=== PATIENT | female | born 1955 | race Caucasian/White ===

== ENCOUNTER → 2017-02-23 | Outpatient (CLI) | payer BC ==
[~2017-02-23] MED LIST: GADAVIST IV PRN
--- NOTE | 2017-02-23 10:29 | DIAGNOSTIC IMAGING REPORT ---
BRAIN COMBO CLINICAL HISTORY: 61 years-old Female presenting with history of breast and lung cancer, history of lymphoma. TECHNIQUE: Multisequence, multiplanar MR imaging of the brain was performed before and after the administration of intravenous contrast. IV contrast: 4.5 mL of Gadavist. COMPARISON: None. FINDINGS: Ventricles and sulci normal in size. Periventricular and subcortical white matter T2/FLAIR hyperintensity, nonspecific but likely indicative of chronic small vessel ischemic change. No mass effect or midline shift. No restricted diffusion to suggest acute ischemia. No hemorrhage. No extra-axial fluid collection. T2 skull base flow voids preserved. Suggestion of dural thickening and enhancement (series 9 image 15). Suggestion of multifocal abnormal foci of bone marrow signal intensity in the calvarium. Minimal fluid in the left mastoid air cells. IMPRESSION: 1. Multifocal sites of abnormal signal intensity in the calvarium concerning for metastatic disease. 2. Suggestion of pachymeningeal enhancement. This is nonspecific can be seen in the setting of metastatic disease, namely from breast cancer. Follow-up is advised. 3. Chronic small vessel ischemic change. No acute intracranial abnormality. Electronically signed by: Puma Chirinos M.D. 02/23/2017 10:28 AM Dictated Date/Time: 02/23/2017 10:18 AM
== END | disposition home or self-care (01) ==
LOC: C.MRI 09:05
PROVIDERS: ATTEND Internal Medicine Hematology & Oncology
DX: C34.11 Malignant neoplasm of upper lobe, right bronchus or lung (principal)

== ENCOUNTER → 2017-03-30 | Outpatient (CLI) | payer BC ==
--- NOTE | 2017-03-30 11:55 | DIAGNOSTIC IMAGING REPORT ---
VIDEO SWALLOW HISTORY: Difficulty swallowing. LUNG CANCER,NON SMALL CELL C34.11 TECHNIQUE: Video fluoroscopic evaluation of swallowing was performed in the AP and lateral projections by the speech pathology staff. The patient is fed nectar-thick and thin liquid barium, a barium coated wafer, and barium pudding. FLUOROSCOPY TIME: 2.7 minutes. A cine loop was submitted. COMPARISON STUDY: None. FINDINGS: There is normal hyoid excursion and epiglottic deflection. No aspiration identified. Moderate cricopharyngeal dysfunction with decreased opening of the proximal esophageal sphincter. There is also mild pharyngeal weakness. This likely accounts for the moderate hypopharyngeal residue seen throughout the examination. Mild esophageal dysmotility. IMPRESSION: 1. Moderate hypopharyngeal residue seen throughout the examination likely result of cricopharyngeal dysfunction and mild diffuse pharyngeal weakness. No aspiration identified. 2. Please see the speech pathologist report for detailed findings and recommendations. Electronically signed by: Kel Cm M.D. 03/30/2017 11:54 AM Dictated Date/Time: 03/30/2017 11:50 AM
--- NOTE | 2017-03-31 15:16 | SWALLOWING EVALUATION ---
HISTORY: This 61 year old woman was referred to [facility] for a Video Fluoroscopic Swallow Study (VFSS) in order to rule out aspiration, and identify the safest consistencies for optimal oral intake. The patient is reporting that she feels as though food and liquid are getting "stuck" in her throat and she is concerned that she is aspirating. She has not had any recent pneumonia. PMH is significant for lung cancer, recently diagnosed in December of this year. She reported she is receiving chemotherapy treatments. Current diet is regular. She denies loss of appetite but does admit to losing a "few pounds" since her treatments began. She also reports generalized weakness in association with her chemotherapy. PROCEDURE: The patient was seen in the Radiology Department of [facility] for the VFSS. Cursory examination of the oral cavity revealed upper and lower dentition. Movement of the articulators was wnl. Speech was clear. The patient stood for the procedure and was viewed in both the Anterior-Posterior (A-P) and Lateral planes. Volitional phonation exercises completed in the A-P plane revealed bilateral vocal fold movement and vocal intensity within functional limits. In the lateral plane, the patient was given the following boluses: 1 tsp. thin liquid barium x 2, single swallow thin liquid barium self-presented from a cup, sequential swallows of thin liquid barium self-presented from a straw, 1 tsp. nectar-thick liquid barium, single swallow nectar-thick liquid barium self-presented from a cup, 1 tsp. barium pudding, and 1 club cracker coated in barium pudding. The patient was then repositioned into the A-P plane and given the following boluses: 1 tsp. nectar thick barium and 1 tsp. barium pudding. RESULTS: Oral Stage: Lip closure was adequate. The patient was able to maintain a cohesive liquid bolus upon command without any escape. Mastication and lingual motion for bolus transport was slowed. There was retention along the tongue and palate after the initial swallow. The initiation of the pharyngeal swallow was delayed and triggered when the bolus head reached the valleculae. Pharyngeal Stage: Soft palate elevation was complete. Laryngeal elevation revealed partial superior movement of the thyroid cartilage and partial approximation of the arytenoids to the epiglottic base. Anterior hyoid excursion was partially reduced. Epiglottic deflection was in-complete and at times did not invert. Laryngeal vestibular closure was incomplete, with a narrow column of contrast located in the vestibule at the height of the swallow. The pharyngeal stripping wave was present yet diminished. Pharyngeal contraction was incomplete. There was partial distention and duration to the opening of the pharyngoesophageal segment (PES). Tongue base retraction was reduced, with a narrow column of contrast located between the tongue base and pharyngeal wall during the swallow. There was retention located in the valleculae and in the pyriforms after the swallow. There was evidence of laryngeal penetration of thin liquids from a straw in serial swallows. No other laryngeal penetration or aspiration was identified. Retention remained in the valleculae and pyriforms did not effectively clear with a liquid wash. An effortful swallow did assist in clearing the retention, but she needed to complete ~ 2-3 to be fully effective. Pharyngeal stage dysphagia is attributed to generalized pharyngeal weakness to include reduced tongue base retraction, limited to no epiglottic deflection, reduced anterior hyoid excursion, and reduced opening of the PES. Esophageal Stage: There was mild retention located in the distal esophagus. SUMMARY/RECOMMENDATIONS: The patient presents with mild to moderate bob-pharyngeal dysphagia. She also presents with signs and symptoms of esophageal dysfunction. The following is recommended: 1. Regular diet, thin liquids. 2. Aspiration and MATHIEU precautions. Straws OK. Fully upright for meals and for 30 minutes after meals. Do not lay flat, elevate head of the bed to at least 30 degrees at all time, to include while sleeping. 3. Double effortful swallow with each bite/sip. Alternate solids and liquids as needed. 4. Consider participation in outpatient speech therapy services for dysphagia. Treatment to focus on generalized pharyngeal strengthening exercises. Results and recommendations were discussed with the patient immediately following the study with verbal understanding. Education also completed on rationale of effortful swallowing strategy to not only assist with clearing pharyngeal retention, but to also assist in improved strengthening of the pharynx. Educated the patient on how to complete the Brenda Maneuver (Holding the tongue in-between the teeth gently, and eliciting a swallow to improve tongue base strengthening). She was able to complete return demonstration and verbalized understanding to this exercise. Thank you for referral of this patient. Please contact me at if any additional information is needed.
== END | disposition home or self-care (01) ==
LOC: C.RAD 10:42
PROVIDERS: ATTEND Internal Medicine Hematology & Oncology
DX: C34.11 Malignant neoplasm of upper lobe, right bronchus or lung (principal)

== ENCOUNTER → 2017-04-08 | Outpatient (CLI) | payer BC ==
[~2017-04-08] MED LIST changes: +AMLO5TAB3 PO; +CHEMO DRUG IV; -GADAVIST IV PRN; +LEVO125T5 PO; +LOSA1TAB38 PO; +OPTIRAY 320 IV PRN; +PATIENT'S ALLERGY INFO NEEDS ENTERED SCH; +TIOT1AER INH
--- NOTE | 2017-04-08 08:47 | DIAGNOSTIC IMAGING REPORT ---
(CHEST) THORAX WITH CT DOSE: 320.97 mGy.cm HISTORY: Lung carcinoma LUNG CA TECHNIQUE: Multiaxial CT images of the chest were performed following the intravenous administration of contrast. A dose lowering technique was utilized adhering to the principles of ALARA. COMPARISON: None. FINDINGS: Emphysematous change throughout both hemithoraces. Bleb formation scattered throughout both hemithoraces. Apical fibrotic changes most likely chronic. Groundglass 1.5 cm nodule posterior aspect right pulmonary apex. Spiculated mass right middle lobe measuring 2.8 x 1.5 cm up. Probable developing right hilar adenopathy up to 1.5 cm. Mild cardiomegaly. Basilar pleural thickening combined with a trace amount of right basilar pleural fluid. Findings of diffuse bony blastic metastatic change. Moderate distention root of the aorta with maximum diameter of 3.3 cm. A potential nodular density anterior aspect right base measuring 7 mm. Limited evaluation of the upper abdomen is unremarkable. Several small hypodensities less than 5 mm superior right hepatic lobe too small to quantify. IMPRESSION: 1. Difficult study to interpret given the absence of prior studies for comparison. 2. Spiculated right middle lobe mass with probable right hilar and potential fibrotic stranding to the pleural surface. 3. 1.5 cm groundglass nodule right pulmonary apex, smaller nodules in both lung bases raising the possibility of metastatic change. 4. Diffuse bony blastic metastatic change. 5. Underlying emphysematous change. 6. Small pericardial effusion. 7. Potential hepatic metastatic change versus simple cystic change. The above report was generated using voice recognition software. It may contain grammatical, syntax or spelling errors. Electronically signed by: Sherif Palmer M.D. 04/08/2017 8:45 AM Dictated Date/Time: 04/08/2017 8:27 AM
--- NOTE | 2017-04-08 08:55 | DIAGNOSTIC IMAGING REPORT ---
CT NECK WITH INTRAVENOUS CONTRAST HISTORY: Follow-up lung cancer. TECHNIQUE: Multiaxial CT images of the neck were performed following the use of intravenous contrast. COMPARISON STUDY: None. FINDINGS: The visualized brain parenchyma and orbits are unremarkable. Emphysema. Multiple biapical blebs. 2 cm groundglass nodule within the right lung apex. Multiple blastic metastases seen throughout the visualized osseous structures. Old fracture within the right maxillary sinus which is likely pathologic. There is mild soft tissue thickening at this location suggestive of metastatic disease. This fracture is nonunited. There is also an old T2 spinous process fracture which is nonunited. The parotid and submandibular glands are symmetric. The epiglottis is normal in thickness. No significant cervical lymphadenopathy. No definite supraclavicular lymphadenopathy. Heterogeneous thyroid gland. The carotid vertebral arteries are patent. Asymmetric prevertebral soft tissue thickening at the C5 T1 through levels, right greater than left. This measures up to 9 mm in thickness. There is also thickening within the proximal esophagus and indistinct fat plane surrounding the thyroid gland and superior mediastinum. The airway remains patent. IMPRESSION: 1. Abnormal prevertebral soft tissue thickening from the C5-T1 levels with indistinct fat plane surrounding the thyroid gland, superior mediastinum, proximal esophagus. There is also mild thickening of the proximal esophagus. This is nonspecific but favors post radiation change. Malignancy could also a similar appearance. 2. Extensive osteoblastic metastatic disease. 3. A 2 cm groundglass nodule within the right lung apex. 4. No cervical lymphadenopathy. 5. Nonunited pathologic fracture within the right maxillary sinus with mild soft tissue thickening. This is consistent with metastatic disease. This is likely old. Electronically signed by: Kel Cm M.D. 04/08/2017 8:54 AM Dictated Date/Time: 04/08/2017 8:26 AM
== END | disposition home or self-care (01) ==
LOC: C.CTS 08:02
PROVIDERS: ATTEND Internal Medicine Hematology & Oncology
DX: C34.11 Malignant neoplasm of upper lobe, right bronchus or lung (principal); C79.51 Secondary malignant neoplasm of bone

== ENCOUNTER → 2017-11-18 | Outpatient (CLI) | payer OTHER ==
[~2017-11-18] MED LIST changes: -OPTIRAY 320 IV PRN; -PATIENT'S ALLERGY INFO NEEDS ENTERED SCH
[2017-11-18 09:43] LABS: BASO % 0.5 %; BASO ABS # 0.04 K/uL (0-0.2); EOS % 1.8 %; EOS ABS # 0.14 K/uL (0-0.5); HEMOGLOBIN 14.9 g/dL (12.0-16.0); IG# 0.03 K/uL (0.00-0.02); LYMPH % 17.6 %; LYMPH ABS # 1.36 K/uL (1.2-3.4); MEAN CELL VOLUME 96.3 fL (80-100); MEAN CORPUSCULAR HEMOGLOBIN 32.6 pg (25-34); MEAN CORPUSCULAR HGB CONC 33.9 g/dl (32-36); MEAN PLATELET VOLUME 9.1 fL (7.4-10.4); MONO ABS # 0.77 K/uL (0.11-0.59); NEUT % 69.7 %; NEUT ABS # 5.39 K/uL (1.4-6.5); PLATELET COUNT 257 K/uL (130-400); RED CELL DISTRIBUTION WIDTH CV 14.2 % (11.5-14.5); RED CELL DISTRIBUTION WIDTH SD 50.2 fL (36.4-46.3); WHITE BLOOD COUNT 7.73 K/uL (4.8-10.8)
[2017-11-18 10:04] LABS: ALBUMIN 3.1 gm/dl (3.4-5.0); ALT/SGPT 24 U/L (12-78); AST/SGOT 24 U/L (15-37); BLOOD UREA NITROGEN 6 mg/dl (7-18); CARBON DIOXIDE 27 mmol/L (21-32); CREATININE 0.46 mg/dl (0.60-1.20); GLUCOSE 81 mg/dl (70-99); SODIUM 137 mmol/L (136-145)
[2017-11-18 10:10] LABS: ALKALINE PHOSPHATASE 369 U/L (45-117)
== END | disposition home or self-care (01) ==
LOC: C.LABSPEC 09:32
PROVIDERS: ATTEND Internal Medicine Hematology & Oncology
DX: C34.11 Malignant neoplasm of upper lobe, right bronchus or lung (principal)

== ENCOUNTER → 2017-11-23 | Day surgery (SDC) | payer OTHER ==
[2017-11-19 14:56] VITALS: Ht 167.6 cm; Wt 41.6 kg
[~2017-11-23] VITALS: Ht 167.6 cm; Wt 41.6 kg
[~2017-11-23] MED LIST changes: +LIDOCAINE HCL 2% 2 ML VIAL (20MG/ML) ONE; +PROPOFOL IV EMULSION 10 MG/ML 20 ML VIAL ONE
--- NOTE | 2017-11-23 08:39 | Endo History and Physical ---
History & Physical Date of Service: Nov 23, 2017. Chief Complaint: Dysphagia Referring Physician: Dorothy Gutierrez History of Present Illness 62 yo CF who presents for EGD secondary to dysphagia. Past Surgical History Hx Cardiac Surgery: No Hx Internal Defibrillator: No Hx Pacemaker: No Hx Abdominal Surgery: Yes (NOÉ BSO) Hx of Implantable Prosthesis: No Hx Post-Op Nausea and Vomiting: No Hx Cancer Surgery: Yes (SKIN CANCER EXCISION) Hx Thoracic Surgery: No Hx Orthopedic: No Hx Urinary Tract Surgery: No Family History None Social History Smoking Status: Former Smoker Hx Substance Use: No Hx Alcohol Use: Yes (RARELY) Allergies Coded Allergies: Red Dye (Verified Allergy, Unknown, LIGHTHEADED, 11/23/17) Current Medications Reported Home Medications Medications Dose Route/Sig Max Daily Dose Days Date Category [Chemo Drug] 1 Dose IV [id number] 11/19/17 Reported Stiolto Respimat 2.5-2.5 Mcg/Act (Tiotropium [place]-Olodaterol) 1 Aer Aer 1 Dose INH QAM 11/19/17 Reported Cozaar (Losartan Potassium) 100 Mg Tab 100 Mg PO QAM 11/19/17 Reported Levothyroxine Sodium 125 Mcg Tab 1 Tab PO QAM 11/19/17 Reported Norvasc (Amlodipine Besylate) 5 Mg Tab 5 Mg PO QAM 11/19/17 Reported Vital Signs Weight (Kilograms): 41.59 Height (Feet): 5 Height (Inches): 6 Date Time Temp Pulse Resp B/P (MAP) Pulse Ox O2 Delivery O2 Flow Rate FiO2 11/23/17 08:11 36.4 76 20 117/79 (92) 96 Room Air Physical Exam General Appearance: WD/WN, no apparent distress Respiratory/Chest: Auscultation: breath sounds normal Cardiovascular: Heart Auscultation: RRR Abdomen: Bowel Sounds: normal Inspection & Palpation: soft, non-distended, no tenderness, guarding & rebound Assessment and Plan Assessment: 62 yo CF who presents for EGD secondary to dysphagia. Plan: Proceed with EGD.
--- NOTE | 2017-11-23 09:19 | GI REPORT ---
Patient Name: Emily Benavidez Procedure Date: 11/23/2017 8:28 AM Date of : 1955 Admit Type: Outpatient Age: 62 Gender: Female Attending MD: Tenzin Kerns DO Procedure: Upper GI endoscopy Providers: Tenzin Kerns DO Referring MD: Dorothy Gutierrez Indications: Dysphagia Medicines: Monitored Anesthesia Care Complications: No immediate complications. Estimated Blood Loss: Estimated blood loss: none. Procedure: Pre-Anesthesia Assessment: - Prior to the procedure, a History and Physical was performed, and patient medications and allergies were reviewed. The patient's tolerance of previous anesthesia was also reviewed. The risks and benefits of the procedure and the sedation options and risks were discussed with the patient. All questions were answered, and informed consent was obtained. Prior Anticoagulants: The patient has taken no previous anticoagulant or antiplatelet agents. ASA Grade Assessment: IV - A patient with severe systemic disease that is a constant threat to life. After reviewing the risks and benefits, the patient was deemed in satisfactory condition to undergo the procedure. After obtaining informed consent, the endoscope was passed under direct vision. Throughout the procedure, the patient's blood pressure, pulse, and oxygen saturations were monitored continuously. The Scope was introduced through the mouth, and advanced to the second part of duodenum. The upper GI endoscopy was performed with difficulty due to stenosis. Successful completion of the procedure was aided by withdrawing the scope and replacing with the pediatric endoscope. The patient tolerated the procedure well. Findings: One benign-appearing, intrinsic stenosis was found 18 cm from the incisors. This stenosis was severe and measured 8 mm (inner diameter) x 1 cm (in length). The stenosis was traversed after downsizing scope. A guidewire was placed and the scope was withdrawn. Dilation was performed with a Savary dilator with no resistance at 30 Fr and 33 Fr. A small hiatal hernia was present. The examined duodenum was normal. Impression: - Benign-appearing esophageal stenosis. Dilated. - Small hiatal hernia. - Normal examined duodenum. - No specimens collected. Recommendation: - Resume previous diet. - Continue present medications. - Repeat upper endoscopy at appointment to be scheduled for retreatment at [facility]. - Return to primary care physician as previously scheduled. Tenzin Kerns DO 11/23/2017 9:19:00 AM This report has been signed electronically. Note Initiated On: 11/23/2017 8:28 AM Number of Addenda: 0 I attest to the content of the Intraoperative Record and orders documented therein, exceptions below {[id number]}
--- NOTE | 2017-11-23 09:40 | Discharge Instructions ---
Endoscopy Patient Instructions Date / Procedure(s) Performed Nov 23, 2017. EGD Allergy Information Coded Allergies: Red Dye (Verified Allergy, Unknown, LIGHTHEADED, 11/23/17) Discharge Date / Findings Nov 23, 2017. Proximal esophageal stricture Hiatal hernia Medication Instructions OK to resume all medications today as prescribed Reported Home Medications Medications Dose Route/Sig Max Daily Dose Days Date Category [Chemo Drug] 1 Dose IV [id number] 11/19/17 Reported Stiolto Respimat 2.5-2.5 Mcg/Act (Tiotropium [place]-Olodaterol) 1 Aer Aer 1 Dose INH QAM 11/19/17 Reported Cozaar (Losartan Potassium) 100 Mg Tab 100 Mg PO QAM 11/19/17 Reported Levothyroxine Sodium 125 Mcg Tab 1 Tab PO QAM 11/19/17 Reported Norvasc (Amlodipine Besylate) 5 Mg Tab 5 Mg PO QAM 11/19/17 Reported Provider Instructions Activity Restrictions - No exercising or heavy lifting for 24 hours. - Do not drink alcohol the day of the procedure. - Do not drive a car or operate machinery until the day after the procedure. - Do not make any important decisions or sign important papers in 24 hours after the procedure. Following Day: - Return to full activity which may include returning to work/school. Diet Start your diet with liquids and light foods (jello, soup, juice, toast). Then eat your usual diet if not nauseated. Treatment For Common After Affects For mild abdominal pain, bloating, or excessive gas: - Rest - Eat lightly - Lie on right side Follow-Up Information Follow-up with Dorothy Gutierrez as scheduled Anesthesia Information What You Should Know You have had a procedure that required some medicine to reduce anxiety and discomfort. This treatment is called moderate sedation. After receiving the treatment, you may be sleepy, but you will be able to breathe on your own. The effects of the treatment may last for several hours. Follow these instructions along with Activity/Diet recommendations noted above: * Do NOT do anything where dizziness or clumsiness would be dangerous. * Rest quietly at home today, then you can be up and about tomorrow. * Have a responsible person stay with you the rest of today. * You may have had an I.V. today. If so, you may take the dressing off later today. Recommendations Call your doctor if: * Trouble breathing * Continuous vomiting for more than 24 hours * Temperature above 101 degrees * Severe abdominal pain or bloating * Pain not relieved by pain medicine ordered * There is increased drainage or redness from any incision * A large amount of rectal bleeding greater than 2-3 tablespoons. (If you had a polyp/s removed or have hemorrhoids, a small amount of blood - from the rectum is to be expected.) * You have any unanswered questions or concerns. IN THE EVENT OF A SERIOUS EMERGENCY, GO TO THE NEAREST EMERGENCY ROOM Your discharge instructions were prepared by provider Tenzin Kerns. Patient Instructions Signature Page Emily Benavidez Patient (or Guardian) Signature/Date: I have read and understand the instructions given to me by my caregivers. Caregiver/RN/Doctor Signature/Date: The above-named patient and/or guardian has received patient instructions on this date. + Original Patient Signature Page (only) stays with chart. Please make copy for patient.
--- NOTE | 2017-11-23 09:51 | Anesthesiology Progress Note ---
Anesthesia Post Op Note Date & Time Nov 23, 2017 at 09:51 Vital Signs Pain Intensity: 0 Vital Signs Past 12 Hours Date Time Temp Pulse Resp B/P (MAP) Pulse Ox O2 Delivery O2 Flow Rate FiO2 11/23/17 09:28 82 16 89/56 (67) 97 Room Air 5 11/23/17 09:12 36.5 84 14 105/66 (79) 94 Room Air 5 11/23/17 08:11 36.4 76 20 117/79 (92) 96 Room Air Notes Mental Status: alert / awake / arousable, participated in evaluation Pt Amnestic to Procedure: Yes Nausea / Vomiting: adequately controlled Pain: adequately controlled Airway Patency, RR, SpO2: stable & adequate BP & HR: stable & adequate Hydration State: stable & adequate Anesthetic Complications: no major complications apparent
[2017-11-23 10:08] VITALS: BP 126/85; PULSE 88; O2SAT 93
== END | disposition home or self-care (01) ==
LOC: C.GI 07:36
PROVIDERS: ATTEND Internal Medicine
DX: R13.10 Dysphagia, unspecified (principal); R63.4 Abnormal weight loss; K44.9 Diaphragmatic hernia without obstruction or gangrene; K22.2 Esophageal obstruction; Z90.710 Acquired absence of both cervix and uterus; Z90.722 Acquired absence of ovaries, bilateral; Z90.79 Acquired absence of other genital organ(s); Z85.828 Personal history of other malignant neoplasm of skin; Z87.891 Personal history of nicotine dependence

== ENCOUNTER 2019-02-14 19:33 | Inpatient (IN) ==
[2019-02-14] MEDS ORDERED: SODIUM CHLORIDE 0.9% 1000ML 1,000 ML IV ONE (20:16)
[2019-02-14] MEDS ORDERED: CALCIUM GLUCONATE 10% 2,000 MG in SODIUM CHLORIDE 0.9% 50 ML IV ONE (20:16)
[2019-02-14] MEDS ORDERED: ALBUT/IPRATROP 3MG/0.5MG NEB 3 ML VIAL NEB STA (20:17)
[2019-02-14] MEDS ORDERED: methylPREDNISolone 60 MG in SYRINGE 1 ML IV STA (20:17)
[2019-02-14 21:02] LABS: BUN Creatinine Ratio 23.1 (10-20); Calcium 6.4 mg/dl (8.5-10.1); Creatinine Clr Calc Pharmacy 57.2 ml/min; Est GFR (African American) 109.5; Est GFR (Non-African American) 94.5; Potassium 3.4 mmol/L (3.5-5.1)
[2019-02-14 21:05] LABS: Albumin Globulin Ratio 0.4 (0.9-2); Bilirubin,Total 0.3 mg/dl (0.2-1)
[2019-02-14 21:10] LABS: Hematocrit (blood only) 32.6 % (37-47); Hemoglobin 11.1 g/dL (12.0-16.0); Mean Platelet Volume 9.3 fL (7.4-10.4); Platelet Count 267 K/uL (130-400); RDW Coefficient of Variation 15.5 % (11.5-14.5); RDW Standard Deviation 53.5 fL (36.4-46.3); Red Blood Count 3.36 M/uL (4.2-5.4)
[2019-02-14 21:13] LABS: Basophils # (auto) 0.04 K/uL (0-0.2); Basophils % (auto) 0.2 %; Eosinophils # (auto) 0.06 K/uL (0-0.5); Eosinophils % (auto) 0.3 %; Immature Granulocytes # (auto) 0.45 K/uL (0.00-0.02); Immature Granulocytes % (auto) 1.9 %; Lymphocytes # (auto) 0.96 K/uL (1.2-3.4); Monocytes # (auto) 1.94 K/uL (0.11-0.59); Monocytes % (auto) 8.1 %; Neutrophils # (auto) 20.55 K/uL (1.4-6.5); Neutrophils % (auto) 85.5 %; Platelet Estimate Normal (Normal)
--- NOTE | 2019-02-14 21:33 | CT Scan Report ---
CT abd pelvis wo con CT DOSE: 248.93 mGy.cm HISTORY: Nausea vomiting eval for obstruction TECHNIQUE: Multiaxial CT images of the abdomen and pelvis were performed without contrast. A dose lo wering technique was utilized adhering to the principles of ALARA. COMPARISON STUDY: 04/21/2018 FINDINGS: Diffuse consolidative infiltrate right base including right middle lobe and right lower lob e distributions. Small right effusion. Minimal platelike atelectasis left base. Trace perihepatic ascites. Several low density lesions within the right as well as left hepatic lobe showed a progressive or interval findings from the prior study. This is highly suggestive of metastat ic disease. Kidneys are considered negative for hydronephrosis. There is a pre-existing right renal cyst. Bladder is distended. Bowel pattern is nonobstructive. Evaluation of the abdomen and pelvis is compromised due to the absence of fat as well as absence of c ontrast. IMPRESSION: 1. Interval development of probable diffuse liver metastatic disease. 2. Consolidative parenchymal infiltrate and effusion right lung base. 3. Nonobstructive bowel pattern. 4. Distended bladder. 5. Progressive blastic metastatic change of all major bony structures. 6. Trace perihepatic ascites. The above report was generated using voice recognition software. It may contain grammatical, syntax or spelling errors. Electronically signed by: Sherif Palmer M.D. 02/14/2019 9:31 PM
[2019-02-14] MEDS ORDERED: CEFEPIME 2,000 MG/20 ML VIAL IV STA (21:47)
--- NOTE | 2019-02-14 23:13 | History & Physical Report ---
Date of Service February 14, 2019 Assessment & Plan (1) RLL pneumonia: Ms. Benavidez is a 63-year-old female with a past medical history of lung cancer with metastases to the bone and liver, COPD, hypertension, hypothyroidism, chronic pain, GERD and esophageal dysphagia who was referred to the emergency department by her GI physician, Dr. Kerns, due to abnormal labs. ED Course: 2g calcium gluconate, 1 L normal saline bolus, 60 mg IV methylprednisone, 3 mL DuoNeb, 2 g IV cefepime Sepsis secondary to right lower lobe pneumonia -admit to med/surg with telemetry monitoring -Patient meets criteria for sepsis given tachycardia, tachypnea and leukocytosis with a pulmonary source of infection -Lactate ordered and pending -Blood cultures drawn x2 and pending -CT abdomen & pelvis showed consolidative infiltrate and effusion of the right lung base -Empiric antibiotics with cefepime and vancomycin given patient is immunocompromised due to a malignancy and chemotherapy -MRSA swab ordered -Duonebs ordered every 4 hours as needed -Patient chronically on 10 mg of prednisone, started by her oncologist - will hold this, and stress dose with 60 mg IV methylprednisolone every 12 hours -Maintenance IV fluids orderedLR at 80 mLs/hour x2 bags Hypocalcemia -Patient's calcium level was 6.4, corrected to 8 due to low albumin -Patient received 2 g of calcium gluconate in ER -Recheck with a.m. labs Metastatic lung cancer -Follows with Dr. Marcano -Due to receive chemotherapy this [February 17] -Discussed new metastases to liver with patient Hyponatremia/hypokalemia -Sodium level 132, potassium 3.4 -Likely secondary to poor oral intake, given nausea -Receiving maintenance IVF with LR -Continue home potassium supplementation -Recheck BMP tomorrow Hypothyroidism -Continue home Synthroid Hypertension -Hold home losartan given patient is hypotensive due to sepsis COPD -Continue home inhalers -Remainder of treatment as above Chronic back pain -Continue home PRN oxycodone GERD -Continue home pantoprazole CODE STATUS: Full DVT prophylaxis: 30 mg Lovenox SQ daily Disposition: Admit to med/surg with telemetry monitoring (2) Hypocalcemia: (3) Pleural effusion on right: (4) Acute hyponatremia: (5) Acute exacerbation of chronic obstructive pulmonary disease (COPD): (6) Sepsis: (7) Anemia: (8) Liver metastases: (9) Metastatic lung cancer (metastasis from lung to other site): History of Present Illness Chief Complaint: Sepsis, Pneumonia Primary Care Provider: Dorothy Gutierrez DO Ms. Benavidez is a 63-year-old female with a past medical history of lung cancer with metastases to the bone and liver, COPD, hypertension, hypothyroidism, chronic pain, GERD and esophageal dysphagia who was referred to the emergency department by her GI physician, Dr. Kerns, due to abnormal labs. The patient states that she presented to Dr. Kerns's office today due to feeling unwell, with nausea, and poor appetite. She had an x-ray done and labs ordered, and was referred to the emergency department. She denies fever, chills, shortness of breath, or chest pain. She reports that she has a chronic productive cough, which she states is no worse than usual. She chronically uses 3 L of oxygen at home, as needed for when she exerts herself. With regards to her lung cancer, she follows with Dr. Marcano. She is currently undergoing treatment with chemotherapy, which was started 2 years ago. She receives chemotherapy once every 3 weeks, and stated that she is due to receive it 3 days from now. Of note, she is a former smoker. She quit 2 years ago, when she was diagnosed with lung cancer. Allergies Allergy/AdvReac Type Severity Reaction Status Date / Time red dye Allergy Unknown LIGHTHEADED Verified 02/14/19 14:08 Home Medications Home Medications Medication Instructions Recorded Confirmed Type Daliresp 500 mcg PO QPM 10/22/18 02/14/19 History Spiriva Respimat 2 puff INHALATION DAILY 10/22/18 02/14/19 History benzonatate 100 mg PO QAM 10/22/18 02/14/19 History folic acid 1 mg PO QAM 10/22/18 02/14/19 History levothyroxine 125 mcg PO QAM 10/22/18 02/14/19 History losartan 100 mg PO QAM 10/22/18 02/14/19 History ondansetron HCl [Zofran] 8 mg PO TID PRN 10/22/18 02/14/19 History oxycodone 5 mg PO Q4H PRN 10/22/18 02/14/19 History pantoprazole 40 mg PO QAM 10/22/18 02/14/19 History potassium chloride 20 meq PO QAM 10/22/18 02/14/19 History prednisone 10 mg PO QAM 10/22/18 02/14/19 History prochlorperazine maleate 10 mg PO BID PRN 10/22/18 02/14/19 History erythromycin 250 mg PO MOWEFR 02/14/19 02/14/19 History fluticasone propionate [Flonase 1 spray INTRANASAL BID 02/14/19 02/14/19 History Allergy Relief] Past Med/Surg History Medical History Hypokalemia Hyponatremia Cancer lung, bone --> currently on chemo q3w Difficulty swallowing GERD (gastroesophageal reflux disease) History of tooth extraction Hypertension Hypothyroidism On home oxygen therapy 2 lpm PRN sob Surgical History History of bronchoscopy History of esophagogastroduodenoscopy (EGD) History of total abdominal hysterectomy and bilateral salpingo-oophorectomy History of vascular access device Status post dilation of esophageal narrowing Family History Mother Family history of diabetes mellitus Social History Preferred Language: Guyanese Communication Ability: Effective Jukebox Checker Required: No Beliefs That Will Affect Care: None Current Living Situation: Alone Feels Safe at Home: Yes Safety Concerns: Feels Safe At This Time Smoking Status: Former smoker Tobacco Type: cigarettes ; Second Hand Exposure: Yes (previous exposure) ; Hx Alcohol Use: No Hx Substance Use: No Childhood Exposure to Second-Hand Smoke: Yes caffeine: Yes during the past year weight has: other Dental Care, Regularly: Yes Physical Activity Frequency: Does not Exercise Seatbelt Use: always Review of Systems Constitutional: + fatigue and + anorexia; no fever and no chills Ear, Nose, Mouth, Throat: no nasal congestion and no sore throat Respiratory: + cough and + dyspnea on exertion Cardiovascular: no chest pain, no syncope, no edema and no calf pain Gastrointestinal: + nausea; no abdominal pain, no vomiting and no change in bowel habits Musculoskeletal: + back pain Integumentary: no rash Physical Exam Constitutional: WD/WN, vitals as above + ill appearing, + 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 Coughing frequently Eyes: PERRL, conjunctivae normal, anicteric sclerae ENMT: external ear and nose normal, oropharynx normal (Dry mucous membranes) Respiratory: + cough and able to speak in complete sentences; not tachypneic Auscultation: + diminished lung sounds and + wheezes Course breath sounds at bilateral lung bases, R>L Cardiovascular: RRR, no murmur, no edema Gastrointestinal (Abdomen): normal bowel sounds, soft, nontender, no hepatosplenomegaly Musculoskeletal: no cyanosis or clubbing, extremities motor strength 5/5 Skin: no rashes, warm and dry Neurologic: PERRL, EOMI, accommodation nl, no face palsy, no dysarthria Psychiatric: A+Ox3, euthymic affect Results & Data Vital Signs (Past 12 Hours) Vital Signs Temp Pulse Pulse Resp BP Pulse Ox 02/14/19 21:10 97 H 22 94 02/14/19 21:01 85 16 97 02/14/19 21:00 86 20 116/66 97 02/14/19 20:50 86 15 97 02/14/19 20:48 84 19 97 02/14/19 20:30 87 18 92/65 L 97 02/14/19 20:20 91 H 97 02/14/19 19:43 36.4 C L 97 H 20 93/63 L 88 L Code Status & VTE Plan VTE Prophylaxis Plan VTE Prophylaxis will be ordered: Yes Supervising Physician Co-Signing Physician Notes Patient was seen and examined by me personally. I reviewed the chart, the orders and discussed the case in detail with Dr. Nevin Earl MD. I read this H&P and agree with its contents to entirety. PG Care Time/CCT Total # of Minutes Spent Total Time Spent with Patient: Total time spent is greater than 50% in coordination of care (as documented) at patient's floor/unit and/or counseling patient: Resident Activity Tracking Resident Involvement: Resident Care Provided Care Provided: Adult Hospital Medicine (1) Anemia Anemia type: unspecified type Qualified Code(s): D64.9 - Anemia, unspecified (2) RLL pneumonia Pneumonia type: due to unspecified organism Qualified Code(s): J18.1 - Lobar pneumonia, unspecified organism
[2019-02-14] MEDS ORDERED: MAGNESIUM HYDROXIDE SUSP 30 ML UDC PO PRN (23:47)
[2019-02-14] MEDS ORDERED: POLYETHYLENE (MIRALAX) 17 GM PACK PO PRN (23:47)
[2019-02-14] MEDS ORDERED: PROCHLORPERAZINE MALEATE 10 MG TAB PO PRN (23:47)
[2019-02-14] MEDS ORDERED: OXYCODONE HCL IR 5 MG TAB (IMMEDIATE RELEASE) PO PRN (23:47)
[2019-02-14] MEDS ORDERED: ACETAMINOPHEN 325 MG TAB PO PRN (23:47)
[2019-02-14] MEDS ORDERED: ONDANSETRON INJ 2 MG/ML 2 ML VIAL IV PRN (23:47)
[2019-02-14] MEDS ORDERED: ALBUT/IPRATROP 3MG/0.5MG NEB 3 ML VIAL NEB PRN (23:47)
[2019-02-14] MEDS ORDERED: VANCOMYCIN CONSULT ACTIVE PRN (23:47)
[2019-02-14] MEDS ORDERED: ALUMINUM/MAGNESIUM SUSP 30 ML UDC PO PRN (23:47)
[2019-02-15] MEDS: LACTATED RINGER'S 1,000 ML IV SCH ×2 (00:59→13:21)
[2019-02-15] MEDS ORDERED: VANCOMYCIN HCL 1,000 MG in SODIUM CHLORIDE 0.9% 250 ML IV ONE (01:00)
[2019-02-15 04:00] LABS: Appearance Urine Clear (Clear); Bacteria Urine Automated Negative (Negative); Bilirubin Urine Negative (Negative); Blood Urine Negative (Negative); Color Urine Yellow; Epithelial Cell Urine Auto >30 /lpf (0-5); Glucose Urine UA Negative (Negative); Ketones Urine Negative (Negative); Leukocyte Esterase Urine 2+ (Negative); Nitrite Urine Negative (Negative); Protein Urine Trace (Negative); RBC Urine Automated 0-4 /hpf (0-4); Specific Gravity Urine 1.009 (1.000-1.030); Urobilinogen Urine Negative (Negative)
[2019-02-15] MEDS: LEVOTHYROXINE SODIUM 125 MCG TABLET PO SCH (06:07)
--- NOTE | 2019-02-15 06:29 | Pharmacy Report ---
Pharmacy Abx Dose Short Note - Date of Service February 15, 2019 - Assessment & Plan Assessment * Ms Benavidez is a 63 year old F receiving IV Vancomycin and Cefepime for treatment of sepsis/ RLL pneumonia * PMH is significant for COPD, lung CA with bone/liver mets, esophageal dysphagia, immunocompromise 2/2 chemo and chronic steroids. * Blood cultures are pending, MRSA swab negative Plan Vancomycin * Vanc 1gm (~24mg/kg) IV x1 dose, then * Vanc 750mg (~17.5mg/kg) IV q12h * Vancomycin has been dosed aggressively, as clearance is expected to be significantly increased in the setting of low body weight (BMI 14.9kg/m2). * Will check a level early to ensure that dosing is appropriate. * Goal trough level for sepsis/pulmonary infxn: 15 to 20 mcg/mL * Trough level ordered for: 02/16 prior to the 3rd maintenance dose (this may not yet represent steady-state, which will be taken into consideration when evaluating level) Cefepime 2gm IV q12h -- dose reduced for CrCl < 60mL/min, per renal adjustment protocol Pharmacy will continue to follow and will adjust dose/frequency as necessary. Thank you.
[2019-02-15 07:03] LABS: Basophils # (auto) 0.01 K/uL (0-0.2); Basophils % (auto) 0.1 %; Hematocrit (blood only) 35.2 % (37-47); Hemoglobin 11.5 g/dL (12.0-16.0); Immature Granulocytes % (auto) 3.2 %; Lymphocytes # (auto) 0.52 K/uL (1.2-3.4); Lymphocytes % (auto) 3.3 %; Mean Corpuscular Hemoglobin 32.3 pg (25-34); Mean Corpuscular Hgb Conc 32.7 g/dL (32-36); Mean Corpuscular Volume 98.9 fL (80-100); Mean Platelet Volume 9.2 fL (7.4-10.4); Monocytes # (auto) 0.43 K/uL (0.11-0.59); Monocytes % (auto) 2.7 %; Neutrophils # (auto) 14.38 K/uL (1.4-6.5); Neutrophils % (auto) 90.7 %; Platelet Count 262 K/uL (130-400); RDW Coefficient of Variation 15.6 % (11.5-14.5); RDW Standard Deviation 55.5 fL (36.4-46.3); Red Blood Count 3.56 M/uL (4.2-5.4); White Blood Count 15.84 K/uL (4.8-10.8)
[2019-02-15 07:34] LABS: BUN Creatinine Ratio 19.7 (10-20); Calcium 6.9 mg/dl (8.5-10.1); Creatinine Clr Calc Pharmacy 56.1 ml/min; Est GFR (African American) 107.9; Est GFR (Non-African American) 93.1; Potassium 4.2 mmol/L (3.5-5.1)
[2019-02-15] MEDS ORDERED: methylPREDNISolone 60 MG in SYRINGE 0 ML IV SCH (08:00)
[2019-02-15] MEDS: ENOXAPARIN INJ 30 MG/0.3 ML SYR SQ SCH (08:03)
[2019-02-15] MEDS: TIOTROPIUM BROMIDE 5 PUFF/90 MCG INH INH SCH (08:05)
[2019-02-15] MEDS: POTASSIUM CHLORIDE 20 MEQ TABCR PO SCH (08:07)
[2019-02-15] MEDS: FOLIC ACID 1 MG TAB PO SCH (08:09)
[2019-02-15] MEDS: BENZONATATE 100 MG CAPSULE PO SCH (08:10)
[2019-02-15] MEDS: PANTOprazole 40 MG TAB PO SCH (08:12)
[2019-02-15] MEDS: FLUTICASONE PROPIONATE NA SPR 16 GM BTL SCH ×2 (08:15→21:31)
[2019-02-15] MEDS: CEFEPIME 2,000 MG in SYRINGE 7.5 ML IV SCH ×2 (10:42→21:29)
[2019-02-15] MEDS: VANCOMYCIN HCL 750 MG in SODIUM CHLORIDE 0.9% 250 ML IV SCH (13:21)
[2019-02-15] MEDS: LEVALBUTEROL HCL 1.25 MG/3 ML NEB NEB SCH (18:20)
[2019-02-15] MEDS ORDERED: ROFLUMILAST 500 MCG TAB PO SCH (21:00)
--- NOTE | 2019-02-15 22:51 | Hospitalist Progress Note ---
Date of Service February 15, 2019 Assessment & Plan (1) RLL pneumonia: Ms. Benavidez is a 63-year-old female with a past medical history of lung cancer with metastases to the bone and liver, COPD, hypertension, hypothyroidism, chronic pain, GERD and esophageal dysphagia who was referred to the emergency department by her GI physician, Dr. Kerns, due to abnormal labs. ED Course: 2g calcium gluconate, 1 L normal saline bolus, 60 mg IV methylprednisone, 3 mL DuoNeb, 2 g IV cefepime Sepsis secondary to right lower lobe pneumonia -admit to med/surg with telemetry monitoring -Patient meets criteria for sepsis given tachycardia, tachypnea and leukocytosis with a pulmonary source of infection -Lactate ordered normal -Blood cultures drawn x2 and pending -CT abdomen & pelvis showed consolidative infiltrate and effusion of the right lung base -Empiric antibiotics with cefepime and vancomycin given patient is immunocompromised due to a malignancy and chemotherapy -will continue -MRSA swab ordered -Duonebs ordered every 4 hours as needed -Patient chronically on 10 mg of prednisone, started by her oncologist - will hold this, and stress dose with 60 mg IV methylprednisolone every 12 hours -Maintenance IV fluids orderedLR at 80 mLs/hour x2 bags Hypocalcemia -Patient's calcium level was 6.4, corrected to 8 due to low albumin -Patient received 2 g of calcium gluconate in ER -improved Metastatic lung cancer -Follows with Dr. Marcano -Due to receive chemotherapy this [February 17] -Discussed new metastases to liver with patient Hyponatremia/hypokalemia -Sodium level 132, potassium 3.4 -improved -Likely secondary to poor oral intake, given nausea -Receiving maintenance IVF with LR Hypothyroidism -Continue home Synthroid Hypertension -Hold home losartan given patient is hypotensive due to sepsis COPD -Continue home inhalers -Remainder of treatment as above Chronic back pain -Continue home PRN oxycodone GERD -Continue home pantoprazole CODE STATUS: Full DVT prophylaxis: 30 mg Lovenox SQ daily Disposition: Admit to med/surg with telemetry monitoring will consult oncology (2) Hypocalcemia: (3) Pleural effusion on right: (4) Acute hyponatremia: (5) Acute exacerbation of chronic obstructive pulmonary disease (COPD): (6) Sepsis: (7) Anemia: (8) Liver metastases: (9) Metastatic lung cancer (metastasis from lung to other site): Subjective Patient reports feeling better. She has no new complaints. Still feels weak, and not at baseline. Review of Systems Review of Systems: All systems reviewed & are unremarkable except as noted in HPI & below Physical Exam Physical Exam: Constitutional: WD/WN, vitals as above + ill appearing, + cachectic and cooperative Eyes: PERRL, conjunctivae normal, anicteric sclerae ENMT: external ear and nose normal, oropharynx normal (Dry mucous membranes) Respiratory: able to speak in complete sentences; not tachypneic Auscultation: + wheezes b/l Cardiovascular: RRR, no murmur, no edema Gastrointestinal (Abdomen): normal bowel sounds, soft, nontender, no hepatosplenomegaly Musculoskeletal: no cyanosis or clubbing, extremities motor strength 5/5 Skin: no rashes, warm and dry Neurologic: PERRL, EOMI, accommodation nl, no face palsy, no dysarthria Psychiatric: A+Ox3, euthymic affect Results & Data Vital Signs (Past 12 Hours) Vital Signs Temp Pulse Pulse Resp BP BP Pulse Ox 02/15/19 22:28 98 H 20 97 02/15/19 19:50 36.6 C 91 H 18 121/78 96 02/15/19 19:38 36.6 C 98 H 18 123/83 95 02/15/19 18:23 90 18 94 02/15/19 15:49 88 02/15/19 15:24 36.7 C 83 18 131/83 96 02/15/19 11:26 36.4 C L 81 18 122/84 98 PG Care Time/CCT Total # of Minutes Spent Total Time Spent with Patient: Total time spent is greater than 50% in coordination of care (as documented) at patient's floor/unit and/or counseling patient: (1) Anemia Anemia type: unspecified type Qualified Code(s): D64.9 - Anemia, unspecified (2) RLL pneumonia Pneumonia type: due to unspecified organism Qualified Code(s): J18.1 - Lobar pneumonia, unspecified organism
--- NOTE | 2019-02-15 22:51 | Emergency Department Note ---
Entered by Kiki Tucker acting as a scribe for Alin Majano MD History of Present Illness General Chief complaint: Abnormal Labs/Diagnostic Testing Stated complaint: ref by doc/ab labs Source: patient History of Present Illness Onset (ago): week(s) 1 Quality: + other (abnormal labs/diagnostic testing) Associated symptoms: + denies other symptoms (abdominal pain, urinary problems, abnormal bowel movements) and + other (nausea, dry heaves, unable to eat due to nausea, abdomen feels distended); no fever/chills The patient is a 63 year old female with a PMHx pertinent for metastatic lung cancer with metastasis to bone, COPD, anemia, hyponatremia, hypokalemia, and other relevant medical hisotry as indicated on BBOXX who was sent to the Emergency Room today by her PCP after test results showing a WBC count of 22,000. The patient states she has been experiencing nausea and dry heaves for 1 week with no relief. She also explains that she is unable to eat due to the nausea and states that her abdomen feels distended but not painful. The patient reports that she is also currently taking 10mg Prednisone once per day. She denies abdominal pain, history of abdominal surgery, fever, abnormal bowel movements, and problems with urination. Of note, she reports that her last bowel movement was 1 day ago. Additionally, she states that she uses 3L of O2 at home as needed and is currently receiving chemotherapy. She also explains that she was a previous smoker and quit a few years ago. The patient offers no additional complaints at this time. Home Medications Home Medications Medication Instructions Recorded Confirmed Type Daliresp 500 mcg PO QPM 10/22/18 02/14/19 History Spiriva Respimat 2 puff INHALATION DAILY 10/22/18 02/14/19 History benzonatate 100 mg PO QAM 10/22/18 02/14/19 History folic acid 1 mg PO QAM 10/22/18 02/14/19 History levothyroxine 125 mcg PO QAM 10/22/18 02/14/19 History losartan 100 mg PO QAM 10/22/18 02/14/19 History ondansetron HCl [Zofran] 8 mg PO TID PRN 10/22/18 02/14/19 History oxycodone 5 mg PO Q4H PRN 10/22/18 02/14/19 History pantoprazole 40 mg PO QAM 10/22/18 02/14/19 History potassium chloride 20 meq PO QAM 10/22/18 02/14/19 History prednisone 10 mg PO QAM 10/22/18 02/14/19 History prochlorperazine maleate 10 mg PO BID PRN 10/22/18 02/14/19 History fluticasone propionate [Flonase 1 spray INTRANASAL BID 02/14/19 02/14/19 History Allergy Relief] azithromycin [Zithromax] 250 mg PO 3XWK 02/15/19 02/15/19 History Allergies Allergy/AdvReac Type Severity Reaction Status Date / Time red dye Allergy Unknown LIGHTHEADED Verified 02/14/19 14:08 Past Med/Surg History Medical History Cancer lung, bone --> currently on chemo q3w Difficulty swallowing GERD (gastroesophageal reflux disease) History of tooth extraction Hypertension Hypokalemia Hyponatremia Hypothyroidism On home oxygen therapy 2 lpm PRN sob Surgical History History of bronchoscopy History of esophagogastroduodenoscopy (EGD) History of total abdominal hysterectomy and bilateral salpingo-oophorectomy History of vascular access device Status post dilation of esophageal narrowing Family History Mother Family history of diabetes mellitus Social History Preferred Language: Honduran Communication Ability: Effective [place] Required: No Beliefs That Will Affect Care: None Current Living Situation: Alone Feels Safe at Home: Yes Safety Concerns: Feels Safe At This Time Smoking Status: Former smoker Tobacco Type: cigarettes ; Second Hand Exposure: Yes (previous exposure) ; Hx Alcohol Use: No Hx Substance Use: No Childhood Exposure to Second-Hand Smoke: Yes caffeine: Yes during the past year weight has: other Dental Care, Regularly: Yes Physical Activity Frequency: Does not Exercise Seatbelt Use: always Review of Systems See HPI for pertinent positives & negatives. and A total of 10 systems reviewed and were otherwise negative Physical Exam Vital Signs Vital Signs - 24 hr 02/14/19 19:43 02/14/19 20:20 02/14/19 20:28 Temperature 97.5 F L Temperature Source Oral Sepsis Recent Fever Within 48 Hours No Sepsis New/Unexplained Change in Mental Status No Sepsis Action Taken by Nursing No Action Required Pulse Rate 97 H Pulse Rate [Left Finger] 91 H Pulse Rate from SpO2 Sensor Respiratory Rate 20 Respiratory Effort / Characteristics Non-Labored Spontaneous Blood Pressure 93/63 L Blood Pressure Mean 73 Pulse Oximetry 88 L 97 Oxygen Delivery Method Room Air Nasal Cannula Room Air Oxygen Flow Rate 3 02/14/19 20:30 02/14/19 20:48 02/14/19 20:50 Temperature Temperature Source Sepsis Recent Fever Within 48 Hours Sepsis New/Unexplained Change in Mental Status Sepsis Action Taken by Nursing Pulse Rate 87 84 86 Pulse Rate [Left Finger] Pulse Rate from SpO2 Sensor 87 84 87 Respiratory Rate 18 19 15 Respiratory Effort / Characteristics Blood Pressure 92/65 L Blood Pressure Mean 74 Pulse Oximetry 97 97 97 Oxygen Delivery Method Nasal Cannula Nasal Cannula Nasal Cannula Oxygen Flow Rate 3 3 3 02/14/19 21:00 02/14/19 21:01 02/14/19 21:10 Temperature Temperature Source Sepsis Recent Fever Within 48 Hours Sepsis New/Unexplained Change in Mental Status Sepsis Action Taken by Nursing Pulse Rate 86 85 97 H Pulse Rate [Left Finger] Pulse Rate from SpO2 Sensor 87 84 97 H Respiratory Rate 20 16 22 Respiratory Effort / Characteristics Blood Pressure 116/66 Blood Pressure Mean 82 Pulse Oximetry 97 97 94 Oxygen Delivery Method Nasal Cannula Nasal Cannula Nasal Cannula Oxygen Flow Rate 3 3 3 Constitutional: Vital signs reviewed. Eyes: Pupils are equal round reactive to light. Conjunctiva are noninjected. ENT: Pharynx is clear without erythema or exudate. Mucous membranes are dry. Neck supple without meningeal signs. Respiratory: Diffuse expiratory wheezing bilaterally. Breath sounds are equal bilaterally. Cardiovascular: Regular rate and rhythm. No rubs or gallops. GI: Soft, nondistended and nontender. Bowel sounds are present. Musculoskeletal: No peripheral edema. No lower extremity tenderness. Integumentary: No cyanosis. Neurological: The patient is awake and alert. No focal deficits. Psychiatric: Normal affect. Course 2003: Past medical records reviewed. The patient was evaluated in room B07. A complete history and physical exam was performed. 215: [facility] Spoke to patient about test results. Reexamination for lungs shows no wheezing. She is currently rece iving IV calcium and her BP has improved. 2200: The patient verbally expressed understanding and agreement of the treatment plan. The patient will be evaluated for further treatment. Administered Medications Albuterol (Duoneb) 3 ml NEB Q4R PRN PRN Reason: SOB or wheeze Stop: 03/16/19 23:46 Last Admin: 02/15/19 22:28 Dose: 3 ml Documented by: [id number] Benzonatate (Tessalon Perle) 100 mg PO [facility] Stop: 03/17/19 08:59 Last Admin: 02/15/19 08:10 Dose: 100 mg Documented by: [id number] Cosigned by: [id number] Enoxaparin Sodium (Lovenox) 30 mg SQ Q24H [facility] Stop: 03/17/19 08:59 Last Admin: 02/15/19 08:03 Dose: 30 mg Documented by: [id number] Cosigned by: [id number] Fluticasone Propionate (Flonase) 1 sprays NA BID [facility] Stop: 03/17/19 08:59 Last Admin: 02/15/19 21:31 Dose: 1 sprays Documented by: [id number] Admin: 02/15/19 08:15 Dose: 1 sprays Documented by: [id number] Cosigned by: [id number] Folic Acid (Folvite) 1 mg PO [facility] Stop: 03/17/19 08:59 Last Admin: 02/15/19 08:09 Dose: 1 mg Documented by: [id number] Cosigned by: [id number] Cefepime HCl 2,000 mg/ Syringe 20 mls @ 5.5 mls/min IV Q12H [facility]; Protocol Stop: 02/22/19 09:59 Last Admin: 02/15/19 21:29 Dose: 5.5 mls/min Documented by: [id number] Admin: 02/15/19 10:42 Dose: 5.5 mls/min Documented by: [id number] Cosigned by: [id number] Lactated Ringer's (Lr) 1,000 mls @ 80 mls/hr IV .[id number] [facility] Stop: 02/16/19 00:46 Last Admin: 02/15/19 13:21 Dose: 80 mls/hr Documented by: [id number] Infusion: 02/15/19 13:21 Dose: 80 mls/hr Documented by: [id number] Admin: 02/15/19 00:59 Dose: 80 mls/hr Documented by: [id number] Vancomycin HCl 750 mg/ Sodium (Chloride) 265 mls @ 125 mls/hr IV Q12H [facility] Stop: 02/22/19 13:59 Last Infusion: 02/15/19 15:29 Dose: 0 mls/hr Documented by: [id number] Admin: 02/15/19 13:21 Dose: 125 mls/hr Documented by: [id number] Levalbuterol HCl (Xopenex 1.25mg/3ml Neb) 1.25 mg NEB Q6R [facility] Stop: 03/17/19 18:59 Last Admin: 02/15/19 18:20 Dose: 1.25 mg Documented by: [id number] Levothyroxine Sodium (Synthroid) 125 mcg PO DAILYBB [facility] Stop: 03/17/19 06:29 Last Admin: 02/15/19 06:07 Dose: 125 mcg Documented by: [id number] Pantoprazole Sodium (Protonix) 40 mg PO QAM [facility] Stop: 03/17/19 08:59 Last Admin: 02/15/19 08:12 Dose: 40 mg Documented by: [id number] Cosigned by: [id number] Potassium Chloride (Klor-Con M20) 20 meq PO QAM [facility] Stop: 03/17/19 08:59 Last Admin: 02/15/19 08:07 Dose: 20 meq Documented by: [id number] Cosigned by: [id number] Prochlorperazine (Compazine) 10 mg PO BID PRN PRN Reason: Nausea Stop: 03/16/19 23:46 Last Admin: 02/15/19 15:28 Dose: 10 mg Documented by: [id number] Roflumilast (Daliresp) 500 mcg PO QPM [facility] Stop: 03/17/19 20:59 Last Admin: 02/15/19 21:31 Dose: 500 mcg Documented by: [id number] Tiotropium [place] (Spiriva) 1 puffs INH DAILY [facility] Stop: 03/17/19 08:59 Last Admin: 02/15/19 08:05 Dose: 1 puffs Documented by: [id number] Cosigned by: [id number] Discontinued Medications Albuterol (Duoneb) 3 ml NEB NOW STA Stop: 02/14/19 20:18 Last Admin: 02/14/19 20:29 Dose: 3 ml Documented by: [id number] Calcium Gluconate 2,000 mg/ (Sodium Chloride) 70 mls @ 240 mls/hr IV NOW ONE Stop: 02/14/19 20:33 Last Infusion: 02/14/19 21:08 Dose: 0 mls/hr Documented by: [id number] Admin: 02/14/19 20:41 Dose: 240 mls/hr Documented by: [id number] Sodium Chloride (Nss 1000ml) 1,000 mls @ 999 mls/hr IV .Q1H1M ONE Stop: 02/14/19 21:16 Last Infusion: 02/14/19 21:33 Dose: 0 mls/hr Documented by: [id number] Admin: 02/14/19 20:29 Dose: 999 mls/hr Documented by: [id number] Methylprednisolone 60 mg/ (Syringe) 1.96 mls @ 1.5 mls/min IV NOW STA Stop: 02/14/19 20:18 Last Admin: 02/14/19 20:52 Dose: Not Given Documented by: [id number] Cefepime HCl (Maxipime) 2,000 mg in 20 mls @ 5 mls/min IV NOW STA; Protocol Stop: 02/14/19 21:50 Last Admin: 02/14/19 22:23 Dose: 5 mls/min Documented by: [id number] Methylprednisolone 60 mg/ (Syringe) 0.96 mls @ 1.5 mls/min IV Q12H [facility] Stop: 03/17/19 07:59 Last Admin: 02/15/19 08:02 Dose: 1.5 mls/min Documented by: [id number] Cosigned by: [id number] Vancomycin HCl 1,000 mg/ (Sodium Chloride) 270 mls @ 125 mls/hr IV NOW ONE; Protocol Stop: 02/15/19 03:09 Last Infusion: 02/15/19 03:11 Dose: 0 mls/hr Documented by: [id number] Admin: 02/15/19 00:59 Dose: 125 mls/hr Documented by: [id number] Methylprednisolone (Solumedrol) Confirm Administered Dose 80 mg .ROUTE .STK-MED ONE Stop: 02/14/19 20:50 Last Admin: 02/14/19 20:52 Dose: 60 mg Documented by: [id number] Medical Decision Making Differential Diagnosis Differential diagnosis includes but is not limited to bowel obstruction, partial obstruction, dehydration, KACEY, hypocalcemia, sepsis Medical Records Attestation: I reviewed the patient's medical records. I did perform a limited focused review of portions of the patient's old chart on the electronic medical record. The patient has had no recent pertinent visits to this hospital. The patient received blood work today and had a WBC count of 22,000. She has a history of anemia and is hypotensive. Home Medications Current Medication List: was personally reviewed by me Laboratory Data Attestation: I reviewed the patient's lab results. Result diagrams: 02/15/19 06:49 02/15/19 06:49 Lab Results 02/14/19 02/14/19 02/14/19 Range/Units 20:22 20:22 20:22 WBC 24.00 H (4.8-10.8) K/uL RBC 3.36 L (4.2-5.4) M/uL Hgb 11.1 L (12.0-16.0) g/dL Hct 32.6 L (37-47) % MCV 97.0 (80-100) fL MCH 33.0 (25-34) pg MCHC 34.0 (32-36) g/dL RDW Std Deviation 53.5 H (36.4-46.3) fL RDW Coeff of Maxi 15.5 H (11.5-14.5) % Plt Count 267 (130-400) K/uL MPV 9.3 (7.4-10.4) fL Immature Gran % (Auto) 1.9 % Neut % (Auto) 85.5 % Lymph % (Auto) 4.0 % Carver % (Auto) 8.1 % Eos % (Auto) 0.3 % Baso % (Auto) 0.2 % Immature Gran # (Auto) 0.45 H (0.00-0.02) K/uL Neut # (Auto) 20.55 H (1.4-6.5) K/uL Lymph # (Auto) 0.96 L (1.2-3.4) K/uL Carver # (Auto) 1.94 H (0.11-0.59) K/uL Eos # (Auto) 0.06 (0-0.5) K/uL Baso # (Auto) 0.04 (0-0.2) K/uL Platelet Estimate Normal (Normal) Sodium 132 L (136-145) mmol/L Potassium 3.4 L (3.5-5.1) mmol/L Chloride 98 (98-107) mmol/L Carbon Dioxide 27 (21-32) mmol/L Anion Gap 7.0 (3-11) BUN 15 (7-18) mg/dl Creatinine 0.65 (0.6-1.2) mg/dl Est Cr Clr Drug Dosing 57.2 ml/min Est GFR ( Amer) 109.5 Est GFR (Non-Af Amer) 94.5 BUN/Creatinine Ratio 23.1 H (10-20) Glucose 117 H (70-99) mg/dl Calcium 6.4 L (8.5-10.1) mg/dl Total Bilirubin 0.3 (0.2-1) mg/dl AST 29 (15-37) U/L ALT 28 (12-78) U/L Alkaline Phosphatase 266 H (45-117) U/L Total Protein 7.0 (6.4-8.2) gm/dl Albumin 2.0 L (3.4-5.0) gm/dl Globulin 5.0 H (2.5-4.0) gm/dl Albumin/Globulin Ratio 0.4 L (0.9-2) Lipase 64 L Cancelled (73-393) U/L Imaging Data Radiologist's Impression: Radiology results as stated below per my review and the radiologist's interpretation: CT abd pelvis wo con CT DOSE: 248.93 mGy.cm HISTORY: Nausea vomiting eval for obstruction TECHNIQUE: Multiaxial CT images of the abdomen and pelvis were performed without contrast. A dose lowering technique was utilized adhering to the principles of ALARA. COMPARISON STUDY: 04/21/2018 FINDINGS: Diffuse consolidative infiltrate right base including right middle lobe and right lower lobe distributions. Small right effusion. Minimal platelike atelectasis left base. Trace perihepatic ascites. Several low density lesions within the right as well as left hepatic lobe showed a progressive or interval findings from the prior study. This is highly suggestive of metastatic disease. Kidneys are considered negative for hydronephrosis. There is a pre-existing right renal cyst. Bladder is distended. Bowel pattern is nonobstructive. Evaluation of the abdomen and pelvis is compromised due to the absence of fat as well as absence of contrast. IMPRESSION: 1. Interval development of probable diffuse liver metastatic disease. 2. Consolidative parenchymal infiltrate and effusion right lung base. 3. Nonobstructive bowel pattern. 4. Distended bladder. 5. Progressive blastic metastatic change of all major bony structures. 6. Trace perihepatic ascites. The above report was generated using voice recognition software. It may contain grammatical, syntax or spelling errors. Electronically signed by: Sherif Palmer M.D. 02/14/2019 9:31 PM ECG Data Attestation: I personally reviewed and interpreted this ECG as follows: Indication: + other (hypocalcemia ) Rate (beats per minute): 89 Rhythm: + normal sinus ECG Findings: + Other (QTc is 489 milliseconds, QRS is 90 milliseconds); no PVCs Blood Pressure Blood Pressure Findings: Low blood pressure Blood Pressure Disposition: further management by hospitalist [facility] Narrative I did evaluate the patient as noted above. The patient is presenting with abdominal distention and dry heaves for a week. She had blood work done by her GI doctor today as well as an x-ray which showed no acute process but her blood work was acutely abnormal with hypocalcemia and leukocytosis. IV access was established. The patient was placed on a continuous youth nutritional monitor. She is hypotensive and was given normal saline IV. I did treat her with IV calcium gluconate 2 g. She has diffuse wheezing on exam and has a history of COPD. She is hypoxemic here and was placed on supplemental oxygen. I did treat her with a DuoNeb. She was also given Solu-Medrol IV. I did order and personally review the patient's 12-lead EKG as described above. She has no QT prolongation or dysrhythmia. I did order a urine analysis. She did have leukocyte esterase and WBCs with bacteria but also had epithelial cells. I did order and review the patient's blood work as noted in the electronic medical record. Her white blood cell count is significantly elevated. She is hypocalcemic. She does have hyponatremia. I did order a CT of the abdomen and pelvis. I did review the images myself as well as the radiology report as described above. She has consolidation and effusion on the right side. She also has metastatic disease to the liver. She also has trace ascites. I did discuss the test results with the patient. I did recommend hospitalization. I did discuss the case with the hospitalist and disease case manager. Impression & Plan Hypocalcemia, RLL pneumonia, Pleural effusion on right, Acute hyponatremia, Acute exacerbation of chronic obstructive pulmonary disease (COPD), Acute hypotension, Leukocytosis, Anemia, Liver metastases Critical Care Time Critical Care Time: Yes Total Critical Care Time: 35 I have personally spent approximately 35 minutes of critical care time in the direct management of this patient. This includes bedside care, interpretation of diagnostic studies, and testing, discussion with consultants, patient, and family members, and other required patient management activities. This 35 minutes is in excess of all separately billable procedures. Discharge Plan Visit Data *Final* Discharge Date/Time: 02/14/19 23:23 Chief Complaint: Abnormal Labs/Diagnostic Testing Stated Complaint: ref by doc/ab labs ED Provider: Alin Majano Discharge Problem: Hypocalcemia, RLL pneumonia, Pleural effusion on right, Acute hyponatremia, Acute exacerbation of chronic obstructive pulmonary disease (COPD), Acute h ypotension, Leukocytosis, Anemia, Liver metastases Patient Disposition: Being Evaluated by Hospitalist Discharge Instructions Interventions: ED Discharge Assessment Last Done: 02/14/19 23:23 Discharge Problem: RLL pneumonia Qualifiers: Pneumonia type: due to unspecified organism Qualified Code(s): J18.1 - Lobar pneumonia, unspecified organism Leukocytosis Qualifiers: Leukocytosis type: unspecified Qualified Code(s): D72.829 - Elevated white blood cell count, unspecified Anemia Qualifiers: Anemia type: unspecified type Qualified Code(s): D64.9 - Anemia, unspecified The scribe's documentation has been prepared under my direction and personally reviewed by me in its entirety. I confirm that the note above accurately reflects all work, treatment, procedures, and medical decision making performed by me.
[2019-02-16] MEDS: LEVALBUTEROL HCL 1.25 MG/3 ML NEB NEB SCH ×3 (01:05→13:13)
[2019-02-16] MEDS: VANCOMYCIN HCL 750 MG in SODIUM CHLORIDE 0.9% 250 ML IV SCH (01:48)
[2019-02-16] MEDS: HEPARIN 100 UNIT/ML 5ML FLUSH FLUSH PRN ×5 (04:05→17:39)
[2019-02-16] MEDS: LEVOTHYROXINE SODIUM 125 MCG TABLET PO SCH (06:13)
[2019-02-16 06:50] LABS: Hematocrit (blood only) 32.9 % (37-47); Hemoglobin 10.7 g/dL (12.0-16.0); Mean Corpuscular Hemoglobin 32.1 pg (25-34); Mean Corpuscular Hgb Conc 32.5 g/dL (32-36); Mean Corpuscular Volume 98.8 fL (80-100); Mean Platelet Volume 9.1 fL (7.4-10.4); Platelet Count 320 K/uL (130-400); RDW Coefficient of Variation 15.8 % (11.5-14.5); RDW Standard Deviation 55.6 fL (36.4-46.3); Red Blood Count 3.33 M/uL (4.2-5.4); White Blood Count 20.39 K/uL (4.8-10.8)
[2019-02-16 07:27] LABS: Albumin Level 1.9 gm/dl (3.4-5.0); BUN Creatinine Ratio 25.3 (10-20); Calcium 7.6 mg/dl (8.5-10.1); Est GFR (African American) 107.9; Est GFR (Non-African American) 93.1; Potassium 3.9 mmol/L (3.5-5.1)
[2019-02-16 07:30] LABS: Albumin Globulin Ratio 0.4 (0.9-2); Bilirubin,Total 0.1 mg/dl (0.2-1); Globulin 4.6 gm/dl (2.5-4.0); Total Protein 6.5 gm/dl (6.4-8.2)
[2019-02-16] MEDS: ENOXAPARIN INJ 30 MG/0.3 ML SYR SQ SCH (08:03)
[2019-02-16] MEDS: FLUTICASONE PROPIONATE NA SPR 16 GM BTL SCH (08:04)
[2019-02-16] MEDS: TIOTROPIUM BROMIDE 5 PUFF/90 MCG INH INH SCH (08:04)
[2019-02-16] MEDS: PANTOprazole 40 MG TAB PO SCH (08:05)
[2019-02-16] MEDS: FOLIC ACID 1 MG TAB PO SCH (08:05)
[2019-02-16] MEDS: POTASSIUM CHLORIDE 20 MEQ TABCR PO SCH (08:05)
[2019-02-16] MEDS: BENZONATATE 100 MG CAPSULE PO SCH (08:05)
[2019-02-16] MEDS ORDERED: AZITHROMYCIN 250 MG TAB PO SCH (09:00)
[2019-02-16] MEDS ORDERED: methylPREDNISolone 60 MG in SYRINGE 0 ML IV SCH (09:00)
--- NOTE | 2019-02-16 10:29 | Consultation Report ---
DATE OF CONSULTATION: 02/16/2019 MEDICAL ONCOLOGY CONSULTATION REASON FOR CONSULTATION: A 63-year-old female well known to [facility] with history of metastatic nonsmall cell lung cancer. HISTORY OF PRESENT ILLNESS: The patient is a very pleasant 63-year-old female well known to [facility], currently under my care, receiving maintenance Alimta for metastatic nonsmall cell lung cancer. Apparently, the patient was seen by Dr. Kerns, Gastroenterology on Thursday to evaluate for possible esophageal stricture. He apparently had dilated her in the past. Over the past couple of days, had been experiencing intermittent nausea with dry heaves. She denies any fevers or chills. She reports a chronic cough that is semi-productive. Apparently, labs were drawn and she was found to have low calcium level again, which is not surprising considering she has been on chronic bisphosphonate therapy for bony metastatic disease. Last dose of Alimta was administered on 02/05/2019. CT scan of the abdomen and pelvis done on admission reveal a diffuse consolidative infiltrate right base and right middle lobe, right lower lobe distributions with a small right pleural effusion. Additionally, several low density lesions within the right as well as left hepatic lobe showed evidence of progression. At bedside this morning, the patient feels well. She denies any nausea. She is able to eat breakfast and would like to be discharged as soon as possible unless there is a medical reason otherwise. PAST MEDICAL HISTORY: Positive for EGFR metastatic lung cancer, hypokalemia, hyponatremia, esophageal stricture, difficulty swallowing, hypertension, hypothyroidism, COPD. PAST SURGICAL HISTORY: Status post EGD, status post bronchoscopy, status post total abdominal hysterectomy and bilateral salpingo-oophorectomy, status post port placement and esophageal dilatation. MEDICATIONS: Prior to admission include Daliresp 500 mcg p.o. daily, Spiriva inhaler 2 puffs inhaled daily, Tessalon Perles 100 mg p.o. q.a.m., folic acid 1 mg p.o. daily, levothyroxine 125 mcg p.o. daily, losartan 100 mg p.o. daily, Zofran 8 mg p.o. t.i.d. p.r.n., oxycodone 5 mg p.o. q. 4 hours p.r.n., Protonix 40 mg p.o. daily, potassium chloride 20 mEq p.o. daily, prednisone 10 mg p.o. daily, Compazine 10 mg p.o. b.i.d. p.r.n., erythromycin 250 mg p.o. on every other day, Flonase 1 spray intranasally b.i.d. ALLERGIES: TO RED DYE. FAMILY HISTORY: Positive for diabetes mellitus. SOCIAL HISTORY: The patient lives independently. She is a reformed smoker. Negative for alcohol or illicit drugs. REVIEW OF SYSTEMS: CONSTITUTIONAL: As per HPI, most notably for nausea and dry heaves. Negative for fevers, chills or sweats. The patient has been chronically cachectic, not losing further weight currently. SKIN: No rashes or lesions. No history of dermatoses. HEENT: She denies headaches, lightheadedness or dizziness. No acute visual or hearing deficits. No sinus symptoms, sore throat or dysphagia. LYMPH: No history of lymphoproliferative disease. CARDIAC: No history of coronary artery disease. She denies angina or palpitations. PULMONARY: She has oxygen dependent COPD. The patient is with semi-productive cough. She is not acutely short of breath or dyspneic on exertion. No hemoptysis reported. GASTROINTESTINAL: She has history of esophageal stricture status post dilatation. She has been complaining of nausea over the past couple of days prompting her admission. No emesis reported. Denies hematochezia, melena or apolinar rectal bleeding. GENITOURINARY: No hematuria, dysuria, urinary incontinence. PSYCHIATRIC: Negative for anxiety, depression or psychoses. MUSCULOSKELETAL: Positive for skeletal metastatic disease. ENDOCRINE: Negative for diabetes or thyroid disease. NEUROLOGIC: Negative for seizure, stroke or migraine headache. HEMATOLOGIC: Positive for anemia, which is chronic. Currently, on chemotherapeutics. PHYSICAL EXAMINATION: GENERAL: A very pleasant, thin appearing 63-year-old female patient, awake, alert and appropriate, in no acute distress. VITAL SIGNS: Temperature 36.4, pulse 80, respiratory rate 18, blood pressure 128/82. SKIN: Warm, dry, noncyanotic without petechia, rash or ecchymosis. HEENT: Atraumatic, normocephalic. Eyes: PERRLA, EOMI. Sclerae nonicteric. Nares are patent without rhinorrhea or discharge. Throat is clear. Tongue midline. Mucous membranes are moist. NECK: Supple without JVD or thyromegaly. HEART: Regular rate and rhythm. No clicks, rubs, murmurs or gallops. LUNGS: Diffuse rhonchi heard in all baker with occasional expiratory wheeze. ABDOMEN: Soft, somewhat firm, mildly distended. Bowel sounds hypoactive. No rigidity or guarding. No palpable hepatosplenomegaly. EXTREMITIES: No clubbing, cyanosis or edema. MUSCULOSKELETAL: Strength and pulses are equal in all 4 quadrants. NEUROLOGICAL: She is awake, alert and oriented x3. Cranial nerves II-XII are intact. LABORATORY DATA: WBC count 20,390, hemoglobin 10.7, platelet count 320,000. Sodium 142, potassium 3.9, chloride 110, carbon dioxide 25, creatinine 0.68, BUN 17, calcium is decreased 7.6, alkaline phosphatase elevated 269, albumin 1.9. IMPRESSION: 1. Suspected right lower lobe pneumonia. 2. Progressing metastatic EGFR positive nonsmall cell lung cancer. 3. Hypoalbuminemia. 4. Nausea. 5. Electrolyte dysfunction. PLAN: The patient is a pleasant 63-year-old female [facility] diagnosed with metastatic nonsmall cell lung cancer back in 12/2016 to be precise. Her disease is EGFR positive, but unfortunately progressed on Tarceva. She has had several chemotherapeutic agents and most recently on maintenance Alimta last administered on 02/05/2019. For the most part, he has done well and disease has remained relatively stable. However, her most recent CT scan suggests that the liver lesions are getting worse as well as skeletal involvement. Her hypocalcemia is attributable to chronic bisphosphonate therapy. The patient feels relatively well and unless there is a reason to keep her, she is requesting to go home in the next day or so. I advised the patient of the radiographic findings and the need to consider alternative therapy moving forward. Clearly considering her disease burden a diagnosis, the patient has done exceedingly well and hopefully can buy a little more time for her. Her performance status remains reasonably good to consider alternative salvage therapy. I have nothing further to add at this juncture. I will make arrangements to have her seen in the office upon discharge.
[2019-02-16] MEDS: CEFEPIME 2,000 MG in SYRINGE 7.5 ML IV SCH (10:39)
--- NOTE | 2019-02-16 11:24 | XRay Report ---
XR chest 2V PA/lateral CLINICAL HISTORY: right lower lobe infiltrate dyspnea. Nausea. COMPARISON STUDY: 02/14/2019 FINDINGS: Diffuse emphysematous change. Slight improvement in aeration right lung base. Blastic bony change throughout considered stable. Diffuse parenchymal fibrotic change also stable. IMPRESSION: Diffuse emphysematous and metastatic change considered stable. Slight improvement in aer ation right lung base. The above report was generated using voice recognition software. It may contain grammatical, syntax or spelling errors. Electronically signed by: Sherif Palmer M.D. 02/16/2019 11:22 AM
[2019-02-16] MEDS ORDERED: VANCOMYCIN TROUGH ONE (13:30)
--- NOTE | 2019-02-23 11:28 | Discharge Summary ---
Date of Service February 16, 2019 Admission HPI Per Admitting Provider Ms. Benavidez is a 63-year-old female with a past medical history of lung cancer with metastases to the bone and liver, COPD, hypertension, hypothyroidism, chronic pain, GERD and esophageal dysphagia who was referred to the emergency department by her GI physician, Dr. Kerns, due to abnormal labs. The patient states that she presented to Dr. Kerns's office today due to feeling unwell, with nausea, and poor appetite. She had an x-ray done and labs ordered, and was referred to the emergency department. She denies fever, chills, shortness of breath, or chest pain. She reports that she has a chronic productive cough, which she states is no worse than usual. She chronically uses 3 L of oxygen at home, as needed for when she exerts herself. With regards to her lung cancer, she follows with Dr. Marcano. She is currently undergoing treatment with chemotherapy, which was started 2 years ago. She receives chemotherapy once every 3 weeks, and stated that she is due to receive it 3 days from now. Of note, she is a former smoker. She quit 2 years ago, when she was diagnosed with lung cancer. Principal Diagnosis RLL pneumonia Discharge Exam Constitutional: WD/WN, vitals as above + cachectic and cooperative Eyes: PERRL, conjunctivae normal, anicteric sclerae ENMT: external ear and nose normal, oropharynx normal (Dry mucous membranes) Respiratory: able to speak in complete sentences; not tachypneic Auscultation: + wheezes b/l Cardiovascular: RRR, no murmur, no edema Gastrointestinal (Abdomen): normal bowel sounds, soft, nontender, no hepatosplenomegaly Musculoskeletal: no cyanosis or clubbing, extremities motor strength 5/5 Skin: no rashes, warm and dry Neurologic: PERRL, EOMI, accommodation nl, no face palsy, no dysarthria Psychiatric: A+Ox3, euthymic affect Discharge Data Allergies Allergy/AdvReac Type Severity Reaction Status Date / Time red dye Allergy Unknown LIGHTHEADED Verified 02/14/19 14:08 Consultations 02/14/19 21:47 ED Decision to Admit Stat 02/15/19 14:46 Consult Oncology Routine Ordered Studies 02/14/19 20:16 CT abd pelvis wo con Stat Hospital Course (1) RLL pneumonia: Ms. Benavidez is a 63-year-old female with a past medical history of lung cancer with metastases to the bone and liver, COPD, hypertension, hypothyroidism, chronic pain, GERD and esophageal dysphagia who was referred to the emergency department by her GI physician, Dr. Kerns, due to abnormal labs. ED Course: 2g calcium gluconate, 1 L normal saline bolus, 60 mg IV methylprednisone, 3 mL DuoNeb, 2 g IV cefepime Sepsis secondary to right lower lobe pneumonia -admit to med/surg with telemetry monitoring -Patient meets criteria for sepsis given tachycardia, tachypnea and leukocytosis with a pulmonary source of infection -Lactate ordered and was normal. normal -Blood cultures drawn x2 and pending -CT abdomen & pelvis showed consolidative infiltrate and effusion of the right lung base -Empiric antibiotics with cefepime and vancomycin given patient is immunocompromised due to a malignancy and chemotherapy -will continue -MRSA swab ordered -Duonebs ordered every 4 hours as needed -Patient chronically on 10 mg of prednisone, started by her oncologist - will hold this, and stress dose with 60 mg IV methylprednisolone every 12 hours -will discharge on prednisone. Patient improved and will be discharged on augmentin. Hypocalcemia -Patient's calcium level was 6.4, corrected to 8 due to low albumin -Patient received 2 g of calcium gluconate in ER -improved Metastatic lung cancer -Follows with Dr. Marcano -Due to receive chemotherapy this [February 17] -Discussed new metastases to liver with patient Hyponatremia/hypokalemia -Sodium level 132, potassium 3.4 -improved -Likely secondary to poor oral intake, given nausea -Receiving maintenance IVF with LR Hypothyroidism -Continue home Synthroid Hypertension -Hold home losartan given patient is hypotensive due to sepsis COPD -Continue home inhalers -Remainder of treatment as above Chronic back pain -Continue home PRN oxycodone GERD -Continue home pantoprazole Appreciate input from oncology: The patient is a pleasant 63-year-old female patient of [facility] diagnosed with metastatic nonsmall cell lung cancer back in 12/2016 to be precise. Her disease is EGFR positive, but unfortunately progressed on Tarceva. She has had several chemotherapeutic agents and most recently on maintenance Alimta last administered on 02/05/2019. For the most part, he has done well and disease has remained relatively stable. However, her most recent CT scan suggests that the liver lesions are getting worse as well as skeletal involvement. Her hypocalcemia is attributable to chronic bisphosphonate therapy. The patient feels relatively well and unless there is a reason to keep her, she is requesting to go home in the next day or so. I advised the patient of the radiographic findings and the need to consider alternative therapy moving forward. Clearly considering her disease burden a diagnosis, the patient has done exceedingly well and hopefully can buy a little more time for her. Her performance status remains reasonably good to consider alternative salvage therapy. I have nothing further to add at this juncture. I will make arrangements to have her seen in the office upon discharge. (2) Hypocalcemia: (3) Pleural effusion on right: (4) Acute hyponatremia: (5) Acute exacerbation of chronic obstructive pulmonary disease (COPD): (6) Sepsis: (7) Anemia: (8) Liver metastases: (9) Metastatic lung cancer (metastasis from lung to other site): Total Time Total Time Spent Total Time Spent (In Minutes): 35 Discharge Plan Discharge Items Patient Disposition: Home - Self-Care Reason For Visit: SEPSIS, PNEUMONIA Discharge Diagnosis: Sepsis, Pneumonia Activity: Resume your previous activity Non-emergency contact: Primary Care Provider Call non-emergency contact if: you have any medication questions Follow-up/Referrals: Dorothy Gutierrez DO [Primary Care Provider] - Diet: Regular Addtl Attending Provider Instructions: Will recommend followup with oncology and pulmonary within next 2 weeks. Also recommend followup with PCP in 1-2 weeksYou have been hospitalized for an acute medical problem. During your stay at [facility], we hav e made an effort to correct the problem that brought you to the hospital while keeping you as comfortable as possible. Medications were used to bring your condition under control and your discharge instructions will include directions for any medications you should take after leaving the hospital. Please make sure you see your Primary Care Provider as part of your follow up plan. Pending Studies at Discharge: No Stand-Alone Forms: [facility] Sm[facility] Cess[facility] Medications and DC Order Prescriptions: New amoxicillin-pot clavulanate [Augmentin] 875-125 mg tablet 1 tab PO BID Qty: 20 RF: 0 Continued prednisone 10 mg Tablet 10 mg PO QAM RF: 0 ondansetron HCl [Zofran] 8 mg Tablet 8 mg PO TID PRN (Reason: Nausea) RF: 0 prochlorperazine maleate 10 mg Tablet 10 mg PO BID PRN (Reason: Nausea) RF: 0 potassium chloride 20 mEq Tablet,Er Particles/Crystals 20 meq PO QAM RF: 0 benzonatate 100 mg Capsule 100 mg PO QAM RF: 0 pantoprazole 40 mg Tablet,Delayed Release (Dr/Ec) 40 mg PO QAM RF: 0 levothyroxine 125 mcg Tablet 125 mcg PO QAM RF: 0 folic acid 1 mg Tablet 1 mg PO QAM RF: 0 Daliresp 500 mcg Tablet 500 mcg PO QPM RF: 0 Spiriva Respimat 2.5 mcg/actuation Mist 2 puff INHALATION DAILY RF: 0 oxycodone 5 mg Tablet 5 mg PO Q4H PRN (Reason: Pain) RF: 0 fluticasone propionate [Flonase Allergy Relief] 50 mcg/actuation [place],Suspension 1 spray INTRANASAL BID RF: 0 azithromycin [Zithromax] 250 mg Tablet 250 mg PO 3XWK RF: 0 Discontinued losartan 100 mg Tablet 100 mg PO QAM RF: 0 Discharge Orders: Discharge Order (Routine); Ordered 02/16/19 Ordered By: Jose Manuel Ventura Admission Data Admit Date/Time: 02/14/19 22:44 Attending Provider: Jose Manuel Ventura Admit Provider: Nevin Earl Primary Care Provider: Dorothy Gutierrez Other Providers: Mir Marcano V Other Interventions: Discharge Summary Assessment (RN) Last Done: 02/16/19 16:34 DC Date/Time DO NOT enter until pt leaves facility: 02/16/19 17:57
== END 2019-02-16 17:57 | disposition home or self-care (01) | DRG 871 ==
LOC: ED 19:33 → 2N 22:44 → SUATTDRO 22:44 → 2N 23:23

== ENCOUNTER 2021-04-16 09:21 | Inpatient (IN) ==
--- NOTE | 2021-04-16 10:07 | XRay Report ---
XR chest 1V portable CLINICAL HISTORY: Dyspnea TECHNIQUE: Single frontal radiograph of the chest was obtained. Comparison: Comparison is made to chest one view 02/16/2019 FINDINGS: Port catheter is again noted. The cardiomediastinal silhouette is normal. Linear atelectasis versus s carring is seen in the right lower lung. There is a left retrocardiac airspace opacity. There is a mo derate left and small right pleural effusion. IMPRESSION: 1. Moderate left and small right pleural effusion. 2. Left retrocardiac airspace opacity which may represent atelectasis, pneumonia, and/or aspiration. ACT 112: Negative or not required by law. Electronically signed by: Joseph Sherman M.D. 04/16/2021 10:05 AM
--- NOTE | 2021-04-16 10:46 | Emergency Department Note ---
Impression & Plan Hypoxia, Leukocytosis, Metastatic lung cancer (metastasis from lung to other site), Bilateral pleural effusion, Pneumonia ED Provider Note INFORMANT: Patient ED PROVIDER(S): Feng Newberry MD CHIEF COMPLAINT: Shortness of breath PLAN: Disposition: Admission Condition: Guarded Outpatient prescription management: none Referral: None MEDICAL DECISION MAKING: Patient presented due to shortness of breath. She was hypoxic at the cancer center. She responded to supplemental oxygen. The patient had a chest x-ray performed and she had slight increase in her pleural effusions bilaterally. Radiology questioned possible atelectasis versus infiltrate in the left base. CBC and chemistry panel done earlier today revealed a leukocytosis. This is similar to prior. I discussed her presentation with her treating oncology PA, Esther Alberts PA-C. The patient was scheduled to have a outpatient CT scan done. We discussed completing that here and a chest, abdomen, and pelvis CT wi th IV contrast was ordered. The chest was done for PE protocol. Patient was found to have advanced emphysematous changes. She has pneumonia on the right side and possibly atelectasis versus infiltrate on the left. This would explain her leukocytosis and increased oxygen requirement. She was given IV Zosyn after blood cultures. I discussed this with her oncology PA, Esther. She was in agreement with IV antibiotics and admission. Discussed further management in the hospital. Patient was in agreement. I discussed the case with Dr. Ahmadi of the hospitalist service. Patient was evaluated and admitted. Triage Nursing notes reviewed and agree them. Vital Signs: reviewed and remarkable for hypoxia Differential diagnosis: Complication of malignancy, reactive airway disease, pneumonia, pneumothorax, COPD, CHF, infections, cardiac ischemia, pulmonary embolism, musculoskeletal, gastrointestinal, as well as other pathologies. Diagnostics interpreted by me: ECG: Twelve-lead ECG reveals normal sinus rhythm at 77 bpm. Poor R wave progression anteriorly. No ST elevation. No PVCs. Normal axis. Cardiac Monitoring: Cardiac monitoring ordered by me: The patient was placed on continuous cardiac monitoring and observed. It revealed a normal sinus rhythm at 71 beats per minute without ectopy or evidence of dysrhythmia. Imaging studies: Chest x-ray reveals bilateral pleural effusions. Possible left base infiltrate. HPI: The patient is a 65 year old female who presents to the Emergency Room with complaints of shortness of breath. Patient has a history of lung cancer. She wears oxygen at night. She notes having O2 saturations a few weeks ago down into the 70s when she was getting an ultrasound done of her abdomen. She responded well to supplemental oxygen. She has not been using oxygen during the day. She is a former smoker. Patient went to the cancer center today and was 66% on room air. She was directed to the ER for further evaluation. The patient also notes the following associated symptoms, fatigue, chronic left upper extremity swelling. Patient has had evaluation for left upper extremity swelling. Negative ultrasound. The patient has been given oxygen for r elieving factors. Current pain is rated as 0/10. Pt denies LOC, headache, fevers, chills, diaphoresis, visual changes, neck pain, chest pain, nausea, vomiting, abdominal pain, back pain, melena, hematochezia, urinary symptoms, numbness, weakness, lymphadenopathy, rash, or other complaints. ROS: See above HPI for pertinent positives & negatives. A total of 10 systems reviewed and were otherwise negative. PAST MEDICAL HISTORY:See Below , lung cancer PAST SURGICAL HISTORY:See Below, [facility] FAMILY HISTORY:See Below SOCIAL HISTORY:See Below, former smoker HOME MEDICATIONS:See Below ALLERGIES:See Below VITALS:See Below PHYSICAL EXAMINATION: GENERAL: Awake, alert, cachectic, dyspneic-appearing, in no distress HENT: Normocephalic, atraumatic. Oropharynx unremarkable. EYES: Normal conjunctiva. Sclera non-icteric. NECK: Inspection normal. Non-tender. Supple. No nuchal rigidity. FROM. No masses. RESPIRATORY: Diminished in the bases. No wheezes. No rales. Normal respiratory effort. CARDIAC: Normal rate. Normal rhythm. No murmurs. No rubs. Extremities warm and well perfused. Pulses equal. No JVD. GI: Soft, non-distended. No tenderness to palpation. No rebound or guarding. No masses. RECTAL: Deferred. MUSCULOSKELETAL: Atraumatic. Chest examination reveals no tenderness. The back is symmetrical on inspection without obvious abnormality. There is no CVA tenderness to palpation. No joint edema. There is 2+ left upper extremity josefina pheral edema. Patient states this is chronic. LOWER EXTREMITIES: Calves are equal size bilaterally and non-tender. 2+ edema. No discoloration. NEURO: Normal sensorium. No sensory or motor deficits noted. SKIN: Dry skin in the lower extremities no rash or jaundice noted. Feng Newberry MD Past Med/Surg History Medical History (Updated 04/16/21 @ 16:27 by Feng Newberry MD) Cancer lung, bone, liver -- currently on IV chemo COPD (chronic obstructive pulmonary disease) WELL CONTROLLED PER PT Dysphagia Esophageal dysphagia GERD (gastroesophageal reflux disease) Hypertension Hypothyroidism Metastatic lung cancer (metastasis from lung to other site) On home oxygen therapy 2 lpm PRN sob Sepsis Surgical History History of bronchoscopy History of esophagogastroduodenoscopy (EGD) History of left cataract surgery History of tooth extraction History of total abdominal hysterectomy and bilateral salpingo-oophorectomy History of vascular access device left Aport in place Status post dilation of esophageal narrowing most recent 10/26/18 - [facility] Family History Mother Family history of diabetes mellitus Other No family history of adverse response to anesthesia Denies family history of Crohn's disease Colorectal cancer Ulcerative colitis Social History Smoking Status: Never smoker Second Hand Exposure: No; Hx Alcohol Use: Yes Alcohol type: wine Hx Substance Use: No Preferred Language: Polish Communication Ability: Effective Hearing Health Technician Required: No Beliefs That Will Affect Care: None Current Living Situation: Alone Feels Safe at Home: Yes Childhood Exposure to Second-Hand Smoke: Yes caffeine: Yes during the past year weight has: other Dental Care, Regularly: Yes Physical Activity Frequency: Does not Exercise Seatbelt Use: always Assistive Devices: None and Oxygen - at Night Allergies Allergies Allergy/AdvReac Type Severity Reaction Status Date / Time red dye Allergy Mild LIGHTHEADED Verified 04/16/21 11:53 No Known Drug Allergies Allergy Verified 04/16/21 11:53 Home Meds Home Medications Medication Instructions Recorded Confirmed folic acid 1 mg tablet 1 mg PO QAM 10/22/18 04/16/21 levothyroxine 125 mcg tablet 125 mcg PO QAM 10/22/18 04/16/21 potassium chloride 20 mEq 20 meq PO QAM 10/22/18 04/16/21 tablet,extended release(part/cryst) prednisone 10 mg tablet 10 mg PO QAM 10/22/18 04/16/21 tiotropium bromide 2.5 2 puff INHALATION BID 10/22/18 04/16/21 mcg/actuation mist for inhalation (Spiriva Respimat) fluticasone propionate 50 1 spray INTRANASAL BID 02/14/19 04/16/21 mcg/actuation nasal spray,suspension (Flonase Allergy Relief) losartan 100 mg tablet 100 mg PO QAM 10/12/19 04/16/21 ondansetron HCl 8 mg tablet 8 mg PO Q8H PRN 04/16/21 04/16/21 oxycodone 5 mg tablet 5 mg PO Q8H PRN 04/16/21 04/16/21 Results & Data (ED) Vital Signs Vital Signs - 24 hr 04/16/21 09:22 04/16/21 09:35 04/16/21 09:38 Temperature 37.4 C Temperature Source Temporal Artery Scan Pulse Rate 84 81 Pulse Rate [Apical] Pulse Rate from SpO2 Sensor 84 Respiratory Rate 18 19 Respiratory Effort / Characteristics Spontaneous Respiratory Pattern Regular Blood Pressure 134/84 Blood Pressure [Left Arm] Blood Pressure Mean 100 Blood Pressure Mean [Left Arm] Pulse Oximetry 94 97 Oxygen Delivery Method Room Air Oxymask Oxymask Oxygen Flow Rate 6 6 Sepsis Recent Fever Within 48 Hours No Sepsis New/Unexplained Change in Mental Status No Sepsis Action Taken by Nursing No Action Required 04/16/21 10:00 04/16/21 10:18 04/16/21 10:30 Temperature Temperature Source Pulse Rate 79 77 80 Pulse Rate [Apical] Pulse Rate from SpO2 Sensor 80 80 Respiratory Rate 17 14 8 L Respiratory Effort / Characteristics Respiratory Pattern Blood Pressure 142/90 H 142/102 H Blood Pressure [Left Arm] Blood Pressure Mean 107 115 Blood Pressure Mean [Left Arm] Pulse Oximetry 100 95 Oxygen Delivery Method Oxymask Oxygen Flow Rate 6 Sepsis Recent Fever Within 48 Hours Sepsis New/Unexplained Change in Mental Status Sepsis Action Taken by Nursing 04/16/21 11:00 04/16/21 11:30 04/16/21 11:40 Temperature Temperature Source Pulse Rate 80 82 Pulse Rate [Apical] Pulse Rate from SpO2 Sensor 80 82 Respiratory Rate 17 22 Respiratory Effort / Characteristics Respiratory Pattern Blood Pressure Blood Pressure [Left Arm] Blood Pressure Mean Blood Pressure Mean [Left Arm] Pulse Oximetry 97 92 Oxygen Delivery Method Oxymask Oxymask Oxymask Oxygen Flow Rate 6 6 6 Sepsis Recent Fever Within 48 Hours Sepsis New/Unexplained Change in Mental Status Sepsis Action Taken by Nursing 04/16/21 11:41 04/16/21 12:00 04/16/21 15:11 Temperature Temperature Source Pulse Rate 79 Pulse Rate [Apical] 71 Pulse Rate from SpO2 Sensor 79 Respiratory Rate 12 18 Respiratory Effort / Characteristics Respiratory Pattern Blood Pressure Blood Pressure [Left Arm] 129/81 Blood Pressure Mean Blood Pressure Mean [Left Arm] 97 Pulse Oximetry 96 92 98 Oxygen Delivery Method Oxymask Oxymask Oxygen Flow Rate 6 6 Sepsis Recent Fever Within 48 Hours Sepsis New/Unexplained Change in Mental Status Sepsis Action Taken by Nursing Laboratory Data Result diagrams: 04/16/21 10:21 Lab Results 04/16/21 04/16/21 04/16/21 Range/Units 10:21 11:30 13:40 Sodium Cancelled Potassium Cancelled Chloride Cancelled Carbon Dioxide Cancelled Anion Gap Cancelled BUN Cancelled Creatinine Cancelled Est Cr Clr Drug Dosing Cancelled Est GFR ( Amer) Cancelled Est GFR (Non-Af Amer) Cancelled BUN/Creatinine Ratio Cancelled Glucose Cancelled Calcium Cancelled Total Bilirubin Cancelled AST Cancelled ALT Cancelled Alkaline Phosphatase Cancelled Troponin I < 0.015 (0-0.045) ng/ml NT-Pro-B Natriuret Pep 1503 H (0-900) pg/ml Total Protein Cancelled Albumin Cancelled Globulin Cancelled Albumin/Globulin Ratio Cancelled Nasal Screen MRSA (PCR) Negative (Negative) SARS-CoV-2, RNA, NAAT NEGATIVE (NEGATIVE) Administered Medications Methylprednisolone (Methylprednisolone 125 Mg/2 Ml Vial) 60 mg IV Q12H RAY Stop: 05/16/21 15:14 Last Admin: 04/16/21 15:14 Dose: 60 mg Documented by: [id number] Discontinued Medications Piperacillin Sod/Tazobactam Sod (Zosyn) 4.5 gm in 120 mls @ 240 mls/hr IV NOW ONE Stop: 04/16/21 13:54 Last Infusion: 04/16/21 15:14 Dose: 0 mls/hr Documented by: [id number] Admin: 04/16/21 14:25 Dose: 240 mls/hr Documented by: [id number] Ioversol (Optiray 320 125ml) 113 ml IV ONCE ONE Stop: 04/16/21 10:50 Last Admin: 04/16/21 10:49 Dose: 113 ml Documented by: [id number] Imaging Data Radiologist's Impression: Chest CTA 04/16/21 09:40 CHEST CTA for PULMONARY ARTERIES CT DOSE: 524.29 mGy.cm HISTORY: Dyspnea, hypoxia, hx of CA TECHNIQUE: Multiaxial CT images of the chest were performed following the intravenous administration of contrast to evaluate the pulmonary arteries. Maximal intensity projection images were also obtained. A dose lowering techniq ue was utilized adhering to the principles of ALARA. COMPARISON STUDY: Chest CT 04/03/2021. FINDINGS: Please refer to the same day abdomen and pelvis CT for further evaluation of the abdominal structures. Small bilateral pleural effusions, left greater than right. These have slightly increased in size. No mediastinal or hilar lymphadenopathy. The heart remains mildly enlarged. No pericardial effusion. A left subclavian Port-A-Cath terminates in the SVC. 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 Normal caliber esophagus. The pl eural effusions again appear partially loculated. Mild thickening within the base of the right pleura, unchanged. The necrotic 1.7 cm nodule within the medial aspect of the right lower lobe on image 79 is partially obscured by the pleural effusion but appears similar to the prior study. No pneumothorax. Emphysema with multiple biapical blebs are again noted. Stable 1.4 cm irregular groundglass density within the right lung apex on image 205. Mucoid opacification of the right middle and lower lobe bronchi. There is diffuse bronchial wall thickening. Interstitial thickening and groundglass densities within the periphery of the left upper lobe have slightly improved. Consolidation within the left lung base persists and favors compressive atelectasis from the pleural effusion. Patchy densities within the base the right lower lobe and right middle lobe. This has progressed and may represent a developing pneumonia possibly secondary to aspiration given the opacified bronchi. There is partial collapse of the right middle lobe compared to the prior study. This is likely due to the opacified bronchi. Persistent spiculated lesion within the right upper lobe anteriorly. This measures approximately 3 cm and is best seen image 107. Calcified plaque within the normal caliber thoracic aorta. No evidence for an aortic dissection. No filling defects within the pulmonary arteries to suggest a pulmonary embolus. IMPRESSION: 1. No evidence for pulmonary embolus. 2. Small bilateral pleural effusions which are partially loculated. These have slightly increased in size. 3. Interval development of mucoid opacification within the right middle and lower lobe bronchi. This likely accounts for the partial collapse of the right middle lobe which is new from the prior study. 4. Patchy densities within the base of the right middle lobe and lower lobe may represent an aspiration pneumonitis. 5. Progressive consolidation within the left lung base which favors compressive atelectasis from the small pleural effusion. A pneumonia could also a similar appearance. 6. No significant change in the right lung nodules as described above. 7. Emphysema. 8. 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 9. Please refer to the same day abdomen and pelvis CT for further evaluation of the abdominal structures. ACT 112: Negative or not required by law. Electronically signed by: Kel Cm M.D. 04/16/2021 11:13 AM Chest X-Ray 04/16/21 09:40 XR chest 1V portable CLINICAL HISTORY: Dyspnea TECHNIQUE: Single frontal radiograph of the chest was obtained. Comparison: Comparison is made to chest one view 02/16/2019 FINDINGS: Port catheter is again noted. The cardiomediastinal silhouette is normal. Linear atelectasis versus scarring is seen in the right lower lung. There is a left retrocardiac airspace opacity. There is a moderate left and small right pleural effusion. IMPRESSION: 1. Moderate left and small right pleural effusion. 2. Left retrocardiac airspace opacity which may represent atelectasis, pneumonia, and/or aspiration. ACT 112: Negative or not required by law. Electronically signed by: Joseph Sherman M.D. 04/16/2021 10:05 AM Abdomen/Pelvis CT 04/16/21 10:04 CT SCAN OF THE ABDOMEN AND PELVIS WITH IV CONTRAST CLINICAL HISTORY: Hypoxia. Lung cancer. COMPARISON STUDY: Adrenal CT dated 08/03/2020. CT dated 04/03/2021. TECHNIQUE: Following the IV administration of 113 cc of Optiray 320, CT scan of the abdomen and pelvis is performed from the lung bases to the proximal femora. Images are reviewed in the axial, sagittal, and coronal planes. IV contrast was administered without complication. A dose lowering technique was utilized adhering to the principles of ALARA. The Examination is degraded by motion artifact, as well as by streak artifact from the left arm which could not be elevated above the chest. FINDINGS: Lung bases: The heart is top normal in size and without pericardial effusion. The coronary arteries are densely calcified. Emphysema is noted. There are small left and trace right pleural effusions with dependent consolidation. A spiculated lesion in the right upper lobe is partially visualized and measures approximately 4 x 2 cm. There are subcentimeter satellite nodules. Secretions/debris fill the right lower lobe airways. A peripherally enhancing and centrally necrotic lesion in the paramediastinal right lower lobe on image #35 measures 2.4 x 1.8 cm. Liver: The contrast-enhanced liver is normal in size and contour. Attenuation is heterogeneous. There is no intrahepatic biliary ductal dilatation. The hepatic veins and portal veins are patent. Multifocal hepatic metastatic disease has progressed as compared to 08/03/2020. The largest lesion is seen in the right lobe on image #168 an measures 2.7 x 2.2 cm. At least 2 additional subcentimeter right lobe lesions are noted. Additional subcentimeter hypodensities may rep resent tiny cysts but are too small for definitive characterization. Gallbladder: Unremarkable. Spleen: Normal in size and attenuation. Pancreas: Moderately atrophic and grossly unremarkable. Adrenal glands: No adrenal lesion is clearly identified. Kidneys: The contrast enhanced kidneys are atrophic and without hydronephrosis. The kidneys enhance symmetrically. Scattered renal cysts measure up to 3.6 cm. Additional subcentimeter cortical hypodensities also likely represent cysts but are too small for definitive characterization. Abdominal vasculature: The abdominal aorta is normal in course and caliber noting advanced atherosclerotic calcification. Bowel: There is no bowel obstruction. Moderate fecal retention is seen throughout the colon. The appendix is not visualized. Peritoneum: Diffuse mesenteric edema is noted. No intraperitoneal free air or abdominal ascites is identified. Lymphadenopathy: None. Pelvic viscera: The bladder is mildly distended but otherwise normal in appearance. The uterus is surgically absent. No adnexal lesion is seen. Skeletal structures: The skeletal structures are osteopenic. Findings of diffuse/extensive osteoblastic metastatic disease are likely unchanged. No acute pathologic fracture is identified. Soft tissues: There is diffuse body wall edema. IMPRESSION: 1. Significantly streak and motion compromised examination. The examination is also degraded by diffuse edema. 2. Advanced emphysema. 3. A spiculated lesion in the right upper lobe and a subcentimeter necrotic lesion in the paramediastinal right lower lobe are unchanged from the 04/03/2021 examination and consistent with the known history of lung cancer. 4. Small left and trace right pleural effusions with bibasilar consolidation. This could represent atelectasis and/or pneumonia/aspiration pneumonitis. Clinical correlation will be required. 5. Secretions/debris fill the right lower lobe airways. 6. Hepatic metastatic disease has progressed as compared 08/03/2020. 7. Extensive/diffuse osteoblastic metastatic disease has not appreciably changed from previous. 8. There is diffuse body wall and mesenteric edema. 9. Additional findings as above. ACT 112: Negative or not required by law. Electronically signed by: Renzo Chiu M.D. 04/16/2021 11:08 AM Discharge Plan Visit Data Chief Complaint: Shortness of Breath/Dyspnea Stated Complaint: SENT BY [facility], [facility] 02 ED Provider: Feng Newberry Discharge Problem: Hypoxia, Leukocytosis, Metastatic lung cancer (metastasis from lung to other site), Bilateral pleural effusion, Pneumonia Forms [facility] Pres[facility] Prescriptions: No Action prednisone 10 mg Tablet 10 mg PO QAM RF: 0 potassium chloride 20 mEq Tablet,Er Particles/Crystals 20 meq PO QAM RF: 0 levothyroxine 125 mcg Tablet 125 mcg PO QAM RF: 0 folic acid 1 mg Tablet 1 mg PO QAM RF: 0 Spiriva Respimat 2.5 mcg/actuation Mist 2 puff INHALATION BID RF: 0 losartan 100 mg Tablet 100 mg PO QAM RF: 0 fluticasone propionate [Flonase Allergy Relief] 50 mcg/actuation [place],Jha spension 1 spray INTRANASAL BID RF: 0 ondansetron HCl 8 mg tablet 8 mg PO Q8H PRN (Reason: Nausea And Vomiting) RF: 0 oxycodone 5 mg tablet 5 mg PO Q8H PRN (Reason: Pain) RF: 0 Referrals Referrals: Dorothy Gutierrez DO [Primary Care Provider] -
[2021-04-16] MEDS ORDERED: OPTIRAY 320 125ml IV ONE (10:49)
[2021-04-16 10:57] LABS: NT Pro B Type Natriuretic Pept 1503 pg/ml (0-900); Troponin I < 0.015 ng/ml (0-0.045)
--- NOTE | 2021-04-16 11:09 | CT Scan Report ---
CT SCAN OF THE ABDOMEN AND PELVIS WITH IV CONTRAST CLINICAL HISTORY: Hypoxia. Lung cancer. COMPARISON STUDY: Adrenal CT dated 08/03/2020. CT dated 04/03/2021. TECHNIQUE: Following the IV administration of 113 cc of Optiray 320, CT scan of the abdomen and pelv is is performed from the lung bases to the proximal femora. Images are reviewed in the axial, sagitta l, and coronal planes. IV contrast was administered without complication. A dose lowering technique w as utilized adhering to the principles of ALARA. The Examination is degraded by motion artifact, as w ell as by streak artifact from the left arm which could not be elevated above the chest. FINDINGS: Lung bases: The heart is top normal in size and without pericardial effusion. The coronary arteries a re densely calcified. Emphysema is noted. There are small left and trace right pleural effusions with dependent consolidation. A spiculated lesion in the right upper lobe is partially visualized and zaira sures approximately 4 x 2 cm. There are subcentimeter satellite nodules. Secretions/debris fill the r ight lower lobe airways. A peripherally enhancing and centrally necrotic lesion in the paramediastina l right lower lobe on image #35 measures 2.4 x 1.8 cm. Liver: The contrast-enhanced liver is normal in size and contour. Attenuation is heterogeneous. There is no intrahepatic biliary ductal dilatation. The hepatic veins and portal veins are patent. Multifo eduard hepatic metastatic disease has progressed as compared to 08/03/2020. The largest lesion is seen in the right lobe on image #168 an measures 2.7 x 2.2 cm. At least 2 additional subcentimeter right lob e lesions are noted. Additional subcentimeter hypodensities may represent tiny cysts but are too smal l for definitive characterization. Gallbladder: Unremarkable. Spleen: Normal in size and attenuation. Pancreas: Moderately atrophic and grossly unremarkable. Adrenal glands: No adrenal lesion is clearly identified. Kidneys: The contrast enhanced kidneys are atrophic and without hydronephrosis. The kidneys enhance s ymmetrically. Scattered renal cysts measure up to 3.6 cm. Additional subcentimeter cortical hypodensi ties also likely represent cysts but are too small for definitive characterization. Abdominal vasculature: The abdominal aorta is normal in course and caliber noting advanced atheroscle rotic calcification. Bowel: There is no bowel obstruction. Moderate fecal retention is seen throughout the colon. The appe ndix is not visualized. Peritoneum: Diffuse mesenteric edema is noted. No intraperitoneal free air or abdominal ascites is id entified. Lymphadenopathy: None. Pelvic viscera: The bladder is mildly distended but otherwise normal in appearance. The uterus is tl gically absent. No adnexal lesion is seen. Skeletal structures: The skeletal structures are osteopenic. Findings of diffuse/extensive osteoblast ic metastatic disease are likely unchanged. No acute pathologic fracture is identified. Soft tissues: There is diffuse body wall edema. IMPRESSION: 1. Significantly streak and motion compromised examination. The examination is also degraded by diffu se edema. 2. Advanced emphysema. 3. A spiculated lesion in the right upper lobe and a subcentimeter necrotic lesion in the paramediast inal right lower lobe are unchanged from the 04/03/2021 examination and consistent with the known his tory of lung cancer. 4. Small left and trace right pleural effusions with bibasilar consolidation. This could represent at electasis and/or pneumonia/aspiration pneumonitis. Clinical correlation will be required. 5. Secretions/debris fill the right lower lobe airways. 6. Hepatic metastatic disease has progressed as compared 08/03/2020. 7. Extensive/diffuse osteoblastic metastatic disease has not appreciably changed from previous. 8. There is diffuse body wall and mesenteric edema. 9. Additional findings as above. ACT 112: Negative or not required by law. Electronically signed by: Renzo Chiu M.D. 04/16/2021 11:08 AM
--- NOTE | 2021-04-16 11:14 | CT Scan Report ---
CHEST CTA for PULMONARY ARTERIES CT DOSE: 524.29 mGy.cm HISTORY: Dyspnea, hypoxia, hx of CA TECHNIQUE: Multiaxial CT images of the chest were performed following the intravenous administration of contrast to evaluate the pulmonary arteries. Maximal intensity projection images were also obtaine d. A dose lowering technique was utilized adhering to the principles of ALARA. COMPARISON STUDY: Chest CT 04/03/2021. FINDINGS: Please refer to the same day abdomen and pelvis CT for further evaluation of the abdominal structures. Small bilateral pleural effusions, left greater than right. These have slightly increased in size. No mediastinal or hilar lymphadenopathy. The heart remains mildly enlarged. No pericardial effusion. A left subclavian Port-A-Cath terminates in the SVC. Extensive osteoblastic metastatic dise ase is again noted. Normal caliber esophagus. The pleural effusions again appear partially loculated. Mild thickening within the base of the right pleura, unchanged. The necrotic 1.7 cm nodule within th e medial aspect of the right lower lobe on image 79 is partially obscured by the pleural effusion but appears similar to the prior study. No pneumothorax. Emphysema with multiple biapical blebs are agai n noted. Stable 1.4 cm irregular groundglass density within the right lung apex on image 205. Mucoid opacification of the right middle and lower lobe bronchi. There is diffuse bronchial wall thickening. Interstitial thickening and groundglass densities within the periphery of the left upper lobe have s lightly improved. Consolidation within the left lung base persists and favors compressive atelectasis from the pleural effusion. Patchy densities within the base the right lower lobe and right middle lo be. This has progressed and may represent a developing pneumonia possibly secondary to aspiration giv en the opacified bronchi. There is partial collapse of the right middle lobe compared to the prior st udy. This is likely due to the opacified bronchi. Persistent spiculated lesion within the right upper lobe anteriorly. This measures approximately 3 cm and is best seen image 107. Calcified plaque withi n the normal caliber thoracic aorta. No evidence for an aortic dissection. No filling defects within the pulmonary arteries to suggest a pulmonary embolus. IMPRESSION: 1. No evidence for pulmonary embolus. 2. Small bilateral pleural effusions which are partially loculated. These have slightly increased in size. 3. Interval development of mucoid opacification within the right middle and lower lobe bronchi. This likely accounts for the partial collapse of the right middle lobe which is new from the prior study. 4. Patchy densities within the base of the right middle lobe and lower lobe may represent an aspirati on pneumonitis. 5. Progressive consolidation within the left lung base which favors compressive atelectasis from the small pleural effusion. A pneumonia could also a similar appearance. 6. No significant change in the right lung nodules as described above. 7. Emphysema. 8. 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 9. Please refer to the same day abdomen and pelvis CT for further evaluation of the abdominal structu res. ACT 112: Negative or not required by law. Electronically signed by: Kel Cm M.D. 04/16/2021 11:13 AM
--- NOTE | 2021-04-16 12:16 | Electrocardiogram Report ---
Test Reason : Blood Pressure : / mmHG Vent. Rate : 077 BPM Atrial Rate : 077 BPM P-R Int : 144 ms QRS Dur : 088 ms QT Int : 412 ms P-R-T Axes : 052 038 056 degrees QTc Int : 466 ms Normal sinus rhythm Poor R wave progression, consider anterior WI vs. lead placement vs. LVH Abnormal ECG When compared with ECG of 14-FEB-2019 20:21, No significant change was found Confirmed by Johnny Shaffer ([id number]) on 04/16/2021 12:16:29 PM Referred By: Mir Marcano Confirmed By:Johnny Shaffer
[2021-04-16] MEDS ORDERED: PIPERACILL/TAZOBAC CONSULT ACTIVE PRN (13:25)
[2021-04-16] MEDS ORDERED: PIPERACILLIN/TAZOBACTAM 4.5 GM/120 ML BAG IV ONE (13:25)
[2021-04-16] MEDS: methylPREDNISolone 125 MG/2 ML VIAL IV SCH (15:14)
[2021-04-16] MEDS ORDERED: MAGNESIUM HYDROXIDE SUSP 30 ML UDC PO PRN (17:53)
[2021-04-16] MEDS ORDERED: ACETAMINOPHEN 325 MG TAB PO PRN (17:53)
[2021-04-16] MEDS ORDERED: oxyCODONE HCL IR 5 MG TAB (IMMEDIATE RELEASE) PO PRN (17:53)
[2021-04-16] MEDS ORDERED: ZOLPIDEM TARTRATE 5 MG TAB PO PRN (17:53)
[2021-04-16] MEDS ORDERED: NITROGLYCERIN SL 0.4 MG/TAB TAB SL PRN (17:53)
[2021-04-16] MEDS ORDERED: ONDANSETRON INJ 2 MG/ML 2 ML VIAL IV PRN (17:53)
[2021-04-16] MEDS ORDERED: POLYETHYLENE (MIRALAX) 17 GM PACK PO PRN (17:53)
[2021-04-16] MEDS ORDERED: MoRPHine SULFATE 2 MG/ML CARP IV PRN (17:53)
[2021-04-16] MEDS ORDERED: ONDANSETRON 4 MG OD TAB PO PRN (17:53)
[2021-04-16] MEDS ORDERED: ALUMINUM/MAGNESIUM SUSP 30 ML UDC PO PRN (17:53)
[2021-04-16] MEDS ORDERED: FUROSEMIDE 40 MG/4 ML VIAL IV ONE (17:53)
--- NOTE | 2021-04-16 18:09 | History & Physical Report ---
Date of Service April 16, 2021 Assessment & Plan (1) Pneumonia: Plan: Mrs. Benavidez is a 65-year-old female with a history of Emphysema/COPD, Lung Cancer with metastases to bone and liver, Nocturnal Hypoxia, Hypothyroidism, Hypertension, GERD, Esophageal Stenosis, Anemia, and Hypocalcemia who was referred to [facility] from the Cancer Center where she was supposed to receive her Gemzar therapy today, but was noticeably short of breath, edematous, and her SpO2 was 66%. She typically uses supplemental oxygen at night but not during the day. Apparently she was having an ultrasound done of her abdomen a couple weeks ago and was noted to have an O2 saturation in the 70's. This responded well to supplemental oxygen but she has not been wearing oxygen during the day. Patient also has some fatigue, chronic left upper extremity swelling (this was evaluated with ultrasound, no evidence of DVT), and over the past month she has been having increased lower extremity edema extending up into her lower abdomen. Patient offers no other complaints. She denies any fevers, chills, headaches, stiff neck, chest discomfort, pleuritic chest pain, increased cough, sputum production, or any hemoptysis. Patient states that her diet has been steady. She has not had any nausea or vomiting. Patient's currently on O2 via Oxymask at 7 L/min and her O2 sats are in the 90's. On examination, she is edematous up to her lower abdomen, but her neck veins are not distended. Anasarca /edema may be secondary to Gemzar, but she also has hypoalbuminemia. Chest x-ray in the emergency room shows moderate left and small right pleural effusions and a left retrocardiac airspace opacity which may represent atelectasis, pneumonia, and/or aspiration. CTA of chest shows no evidence of pulmonary embolus, mucoid opacification within the right middle and lower lobe bronchi with partial collapse of the right middle lobe, patchy densities in the right middle lobe and lower lobe and progressive consolidation within the left lung base favoring compressive atelectasis versus pneumonia, emphysema, and extensive osteoblastic metastatic lesions within the bones. additionally, her white blood cell count is elevated at 16.20 K/uL with a leftward shift, and she is anemic with a hemoglobin of 10.1 g/dL. basic metabolic panel shows potassium of 3.5 mmol/L, BUN 19 mg/dL, creatinine 1.36 mg/dL, and a blood glucose 102 mg/dL. Her troponin I level is undetectable, and her proBNP is mildly elevated at 1503 pg/ml. Recommend the followin. Admit to monitored bed. 2. Continue supplemental oxygen maintain an O2 saturation greater than 94%. 3. Hold prednisone. 4. Solu-Medrol IV will be started. 5. DuoNeb nebulizer treatments. 6. Continue Spiriva 1 puff b.i.d.. 7. Continue IV Zosyn. 8. Begin Mucinex. 9. Chest physical therapy. 10. Incentive spirometry with flutter valve. 11. Pulmonology consult. (2) Hypoxia: (3) Leukocytosis: (4) Mucus plugging of bronchi: (5) Metastatic lung cancer (metastasis from lung to other site): Plan: NSCLC with metastases to bones and liver. -- CTAP shows progression of metastatic disease within the liver. -- On Gemzar. (6) Emphysema lung: Plan: -- Manage as outlined above. (7) Hypertension: Plan: -- Continue Losartan 100 mg daily. (8) Anasarca: Plan: Anasarca /edema may be secondary to Gemzar, but she's also markedly hypoalbuminemic. -- IV Lasix x 1 dose now. -- Assess response tomorrow morning. -- Maintain on a loop diuretic. -- Monitor daily renal function, electrolytes. Admission and Anticipated Discharge Date Admission Date: April 16, 2021 History of Present Illness Chief Complaint: -- Anasarca. -- Hypoxia. -- Lung Cancer with metastases to bone, liver. -- Emphysema. Primary Care Provider: Dorothy Gutierrez DO Mrs. Benavidez is a 65-year-old female with a history of Emphysema/COPD, Lung Cancer with metastases to bone and liver, Nocturnal Hypoxia, Hypothyroidism, Hypertension, GERD, Esophageal Stenosis, Anemia, and Hypocalcemia who was referred to [facility] from the Cancer Center where she was supposed to receive her Gemzar therapy today, but was noticeably short of breath, edematous, and her SpO2 was 66%. She typically uses supplemental oxygen at night but not during the day. Apparently she was having an ultrasound done of her abdomen a couple weeks ago and was noted to have an O2 saturation in the 70's. This responded well to supplemental oxygen but she has not been wearing oxygen during the day. Patient also has some fatigue, chronic left upper extremity swelling (this was evaluated with ultrasound, no evidence of DVT), and over the past month she has been having increased lower extremity edema extending up into her lower abdomen. Patient offers no other complaints. She denies any fevers, chills, headaches, stiff neck, chest discomfort, pleuritic chest pain, increased cough, sputum production, or any hemoptysis. Patient states that her diet has been steady. She has not had any nausea or vomiting. Patient's currently on O2 via Oxymask at 7 L/min. Allergies Allergy/AdvReac Type Severity Reaction Status Date / Time red dye Allergy Mild LIGHTHEADED Verified 04/16/21 11:53 No Known Drug Allergies Allergy Verified 04/16/21 11:53 Home Medications Medication Instructions Recorded Confirmed Type folic acid 1 mg tablet 1 mg PO QAM 10/22/18 04/16/21 History levothyroxine 125 mcg tablet 125 mcg PO QAM 10/22/18 04/16/21 History potassium chloride 20 mEq 20 meq PO QAM 10/22/18 04/16/21 History tablet,extended release(part/cryst) prednisone 10 mg tablet 10 mg PO QAM 10/22/18 04/16/21 History tiotropium bromide 2.5 2 puff INHALATION BID 10/22/18 04/16/21 History mcg/actuation mist for inhalation (Spiriva Respimat) fluticasone propionate 50 1 spray INTRANASAL BID 02/14/19 04/16/21 History mcg/actuation nasal spray,suspension (Flonase Allergy Relief) losartan 100 mg tablet 100 mg PO QAM 10/12/19 04/16/21 History ondansetron HCl 8 mg tablet 8 mg PO Q8H PRN 04/16/21 04/16/21 History oxycodone 5 mg tablet 5 mg PO Q8H PRN 04/16/21 04/16/21 History Past Med/Surg History Medical History (Updated 04/17/21 @ 08:36 by Avelino Wisdom PA-C) Cancer lung, bone, liver -- currently on IV chemo COPD (chronic obstructive pulmonary disease) WELL CONTROLLED PER PT Dysphagia Esophageal dysphagia GERD (gastroesophageal reflux disease) Hypertension Hypothyroidism Metastatic lung cancer (metastasis from lung to other site) On home oxygen therapy 2 lpm PRN sob Sepsis Surgical History History of bronchoscopy History of esophagogastroduodenoscopy (EGD) History of left cataract surgery History of tooth extraction History of total abdominal hysterectomy and bilateral salpingo-oophorectomy History of vascular access device left Aport in place Status post dilation of esophageal narrowing most recent 10/26/18 - [facility] Family History Mother Family history of diabetes mellitus Other No family history of adverse response to anesthesia Denies family history of Crohn's disease Colorectal cancer Ulcerative colitis Social History Smoking Status: Never smoker Second Hand Exposure: No; Hx Alcohol Use: Yes Alcohol type: wine Hx Substance Use: No Preferred Language: Pakistani Communication Ability: Effective Meter Record Clerk Required: No Beliefs That Will Affect Care: None Current Living Situation: Alone Feels Safe at Home: Yes Childhood Exposure to Second-Hand Smoke: Yes caffeine: Yes during the past year weight has: other Dental Care, Regularly: Yes Physical Activity Frequency: Does not Exercise Seatbelt Use: always Assistive Devices: Cane and Oxygen - at Night Review of Systems Review of Systems: Ten point review of systems was completed, and is negative except for what is mentioned in the HPI. Physical Exam Physical Exam: GENERAL: Chronically ill-appearing female in no acute distress. HEENT: Head is atraumatic, normocephalic. EOM's intact. Facies symmetric. No perioral cyanosis. NECK: No JVD. JVP is not elevated. Carotid upstrokes are + 2 bilaterally. CHEST/LUNGS: Harsh breath sounds throughout, with diminished breath sounds at the right base. There are diffuse wheezes noted particularly during late expiration. CVS: S1 and S2 are regular without obvious murmurs, gallops, or rubs. PMI is nonpalpable. No lifts, heaves, or thrills. No abdominal aortic or renal bruits. ABDOMINAL EXAM: Bowel sounds are present. No masses, organomegaly, or tenderness. There is trace pitting edema of the lower abdomen. EXTREMITIES: No clubbing or cyanosis. +2 to +3 bipedal and pretibial edema +2 pitting edema at the level of the distal thigh, +1 edema at the level of the hip bilaterally. Intact radial pulses bilaterally. NEUROLOGIC EXAM: Patient is awake, alert, and oriented. Pleasant and cooperative. Answers questions appropriately. Speech is clear. Normal mov ement in all 4 extremities. Gait pattern was not assessed. conveyor monitor shows normal sinus rhythm in the 70s. EKG 04/16/2021: -- NSR at 77 bpm, poor R-wave progression. Normal axis. Results & Data Results & Data ([facility]) Vital Signs (Past 12 Hours) Vital Signs Temp Pulse Pulse Resp BP BP Pulse Ox 04/16/21 17:00 16 158/94 H 96 04/16/21 16:30 20 147/82 H 97 04/16/21 16:00 14 136/80 98 04/16/21 15:31 84 20 137/83 95 04/16/21 15:30 89 20 04/16/21 15:11 71 18 129/81 98 04/16/21 15:00 71 14 129/81 97 04/16/21 14:30 78 153/94 H 93 04/16/21 14:00 75 142/88 H 97 04/16/21 13:30 76 21 130/85 04/16/21 13:00 78 12 154/99 H 93 04/16/21 12:47 149/89 H 93 04/16/21 12:30 93 04/16/21 12:00 79 12 92 04/16/21 11:41 96 04/16/21 11:30 82 22 92 04/16/21 11:00 80 17 97 04/16/21 10:30 80 8 L 142/102 H 95 04/16/21 10:18 77 14 142/90 H 04/16/21 10:00 79 17 100 04/16/21 09:38 81 19 97 04/16/21 09:22 37.4 C 84 18 134/84 94 Laboratory Results Laboratory Results - last 24 hr 04/16/21 04/16/21 04/16/21 10:21 11:30 13:40 Sodium Cancelled Potassium Cancelled Chloride Cancelled Carbon Dioxide Cancelled Anion Gap Cancelled BUN Cancelled Creatinine Cancelled Est Cr Clr Drug Dosing Cancelled Est GFR ( Amer) Cancelled Est GFR (Non-Af Amer) Cancelled BUN/Creatinine Ratio Cancelled Glucose Cancelled Calcium Cancelled Total Bilirubin Cancelled AST Cancelled ALT Cancelled Alkaline Phosphatase Cancelled Troponin I < 0.015 NT-Pro-B Natriuret Pep 1503 H Total Protein Cancelled Albumin Cancelled Globulin Cancelled Albumin/Globulin Ratio Cancelled Nasal Screen MRSA (PCR) Negative SARS-CoV-2, RNA, NAAT NEGATIVE Diagnostic Findings CTA SCAN CHEST 04/16/21: 1. No evidence for pulmonary embolus. 2. Small bilateral pleural effusions which are partially loculated. These have slightly increased in size. 3. Interval development of mucoid opacification within the right middle and lower lobe bronchi. This likely accounts for the partial collapse of the right middle lobe which is new from the prior study. 4. Patchy densities within the base of the right middle lobe and lower lobe may represent an aspiration pneumonitis. 5. Progressive consolidation within the left lung base which favors compressive atelectasis from the small pleural effusion. A pneumonia could also a similar appearance. 6. No significant change in the right lung nodules as described above. 7. Emphysema. 8. 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 9. Please refer to the same day abdomen and pelvis CT for further evaluation of the abdominal structures. CXR 04/16/21: Port catheter is again noted. The cardiomediastinal silhouette is normal. Linear atelectasis versus scarring is seen in the right lower lung. There is a left retrocardiac airspace opacity. There is a moderate left and small right pleural effusion. IMPRESSION: 1. Moderate left and small right pleural effusion. 2. Left retrocardiac airspace opacity which may represent atelectasis, pneumonia, and/or aspiration. CTAP 04/16/21: 1. Significantly streak and motion compromised examination. The examination is also degraded by diffuse edema. 2. Advanced emphysema. 3. A spiculated lesion in the right upper lobe and a subcentimeter necrotic lesion in the paramediastinal right lower lobe are unchanged from the 04/03/2021 examination and consistent with the known history of lung cancer. 4. Small left and trace right pleural effusions with bibasilar consolidation. This could represent atelectasis and/or pneumonia/aspiration pneumonitis. Clinical correlation will be required. 5. Secretions/debris fill the right lower lobe airways. 6. Hepatic metastatic disease has progressed as compared 08/03/2020. 7. Extensive/diffuse osteoblastic metastatic disease has not appreciably changed from previous. 8. There is diffuse body wall and mesenteric edema. 9. Additional findings as above. Code Status & VTE Plan Code Status Full Code VTE Prophylaxis Plan VTE Prophylaxis will be ordered: Yes Supervising Physician Co-Signing Physician Notes PA Supervision Note: I personally saw and examined the patient. I verified all metz points and agree with ESEQUIEL Wisdom with the following exceptions and/or additions: Pt here with worsening SOB and noted to have POx in the 60s-70s while at cancer center getting ready to get her usual chemotherapy. Has productive cough, wheezing. Found to have PNA on CT Chest, no PE, needing 7L O2 on arrival History and ROS reviewed Vitals reviewed NAD, appears thin, AAOx3 RRR no mgr Lungs with diffuse wheezing, rhonchi on right, decreased BS at bases Abd +BS soft NT ND Skin no rashes Ext +edema LUE 2+ and RUE 1+, legs 2+ bilat Labs and rads reviewed 65 yo female here with met lung CA, COPD, here with PNA, hypoxia plan outlined as above appreciate PULM consult PG Care Time/CCT Total # of Minutes Spent Total Time Spent with Patient: Total time spent is greater than 50% in coordination of care (as documented) at patient's floor/unit and/or counseling patient:51 Coding Level of Care Code 81227 Initial Inpt Care Lvl 3 Diagnoses Hypoxia R09.02 Leukocytosis D72.829 Mucus plugging of bronchi T17.500A Pneumonia J18.9 Metastatic lung cancer (metastasis from lung to other site) C34.90 Emphysema lung J43.9 Hypertension I10 Anasarca R60.1 Time Spent (min) 74
--- NOTE | 2021-04-16 18:17 | Pulmonary Consultation ---
Date of Consultation April 16, 2021 Assessment & Plan (1) Metastatic lung cancer (metastasis from lung to other site): (2) Bilateral pleural effusion: (3) Hypoxia: (4) Liver metastases: CT chest 04/16/2021 personally reviewed: Severe centrilobular and paraseptal emphysema appreciated, right upper lobe bullae Right upper lobe peripheral groundglass nodule Left-sided pleural effusion with compression atelectasis of the left lower lobe Debris in the RBI --Acute hypoxic respiratory failure Likely secondary to aspiration pneumonia COVID-19 PCR negative BNP: 1503 Nasal MRSA negative Patient is on chronic oxycodone Possibility of aspiration because of that is high Continue with aspiration precautions Continue with antibiotic O2 supplementation to keep O2 saturation between 88-92% --Bilateral pleural effusion More on the left side Likely from underlying malignancy --Metastatic non-small cell lung cancer Adenocarcinoma, EGFR positive Diagnosis 12/2016 Plan: Guaifenesin-DM [id number] Flutter valve along with chest PT to help bring up the phlegm Avoid oversedation of the patient Overall prognosis is very poor Recommend goals of care discussion Please note the above document was generated using voice recognition software. It may contain grammatical, syntax or spelling errors.Any formal questions or concerns about the content, text or information contained within the body of this dictation should be directly addressed to the provider for clarification. History of Present Illness Attending Physician: Mariana Ahmadi MD History of Present Illness 65-year-old female past medical history of COPD emphysema, stage IV adenocarcinoma with mets to the liver on chemotherapy, nocturnal hypoxia, hypertension, GERD presented to hospital from the cancer center as she was short of breath and edematous Pulmonary consulted because of the abnormal chest CT At the time of examination patient says she was having difficulty bringing up phlegm. She denies any chest pain She has been using oxycodone pills for her pain once or twice on a daily basis She does complain of cough when she is eating. No fever No dysuria, no diarrhea Denies any headache, no blurry vision. Social history: Greater than [id number] smoking history quit couple of years ago. Allergies Allergy/AdvReac Type Severity Reaction Status Date / Time red dye Allergy Mild LIGHTHEADED Verified 04/16/21 11:53 No Known Drug Allergies Allergy Verified 04/16/21 11:53 Home Medications Medication Instructions Recorded Confirmed Type folic acid 1 mg tablet 1 mg PO QAM 10/22/18 04/16/21 History levothyroxine 125 mcg tablet 125 mcg PO QAM 10/22/18 04/16/21 History potassium chloride 20 mEq 20 meq PO QAM 10/22/18 04/16/21 History tablet,extended release(part/cryst) prednisone 10 mg tablet 10 mg PO QAM 10/22/18 04/16/21 History tiotropium bromide 2.5 2 puff INHALATION BID 10/22/18 04/16/21 History mcg/actuation mist for inhalation (Spiriva Respimat) fluticasone propionate 50 1 spray INTRANASAL BID 02/14/19 04/16/21 History mcg/actuation nasal spray,suspension (Flonase Allergy Relief) losartan 100 mg tablet 100 mg PO QAM 10/12/19 04/16/21 History ondansetron HCl 8 mg tablet 8 mg PO Q8H PRN 04/16/21 04/16/21 History oxycodone 5 mg tablet 5 mg PO Q8H PRN 04/16/21 04/16/21 History Patient History Medical History (Updated 04/17/21 @ 08:36 by Avelino Wisdom PA-C) Cancer lung, bone, liver -- currently on IV chemo COPD (chronic obstructive pulmonary disease) WELL CONTROLLED PER PT Dysphagia Esophageal dysphagia GERD (gastroesophageal reflux disease) Hypertension Hypothyroidism Metastatic lung cancer (metastasis from lung to other site) On home oxygen therapy 2 lpm PRN sob Sepsis Surgical History History of bronchoscopy History of esophagogastroduodenoscopy (EGD) History of left cataract surgery History of tooth extraction History of total abdominal hysterectomy and bilateral salpingo-oophorectomy History of vascular access device left Aport in place Status post dilation of esophageal narrowing most recent 10/26/18 - [facility] Family History Mother Family history of diabetes mellitus Other No family history of adverse response to anesthesia Denies family history of Crohn's disease Colorectal cancer Ulcerative colitis Social History Smoking Status: Never smoker Second Hand Exposure: No; Hx Alcohol Use: Yes Alcohol type: wine Hx Substance Use: No Preferred Language: Congolese Communication Ability: Effective Repairer Veneer Sheet Required: No Beliefs That Will Affect Care: None Current Living Situation: Alone Feels Safe at Home: Yes Childhood Exposure to Second-Hand Smoke: Yes caffeine: Yes during the past year weight has: other Dental Care, Regularly: Yes Physical Activity Frequency: Does not Exercise Seatbelt Use: always Assistive Devices: Cane and Oxygen - at Night Review of Systems Review of Systems: All systems reviewed & are unremarkable except as noted in HPI & below Physical Exam Physical Exam: Constitutional: No acute distress, frail-appearing HEENT: EOMI, PERRLA Respiratory system: Decreased air entry bilaterally, no wheeze, positive rhonchi, positive crackles bilateral lower lobes CVS: S1-S2 positive, positive 2 out of 6 systolic murmur appreciated best at the aorta, left-sided Port-A-Cath Abdomen: Soft, nontender, nondistended, positive bowel sounds x4 Extremities: +2 pulses bilaterally radialis/ dorsalis pedis, +2 pitting edema bilateral lower extremity Neuro: Awake alert oriented x3 Psych: Normal mood and affect G/U: No Valle Skin: no rashes, warm and dry Lymphatic: no cervical or axillary lymphadenopathy Results & Data Results & Data ([facility]) Vital Signs (Past 12 Hours) Vital Signs Temp Pulse Pulse Resp BP BP Pulse Ox 04/16/21 17:00 16 158/94 H 96 04/16/21 16:30 20 147/82 H 97 04/16/21 16:00 14 136/80 98 04/16/21 15:31 84 20 137/83 95 04/16/21 15:30 89 20 04/16/21 15:11 71 18 129/81 98 04/16/21 15:00 71 14 129/81 97 04/16/21 14:30 78 153/94 H 93 04/16/21 14:00 75 142/88 H 97 04/16/21 13:30 76 21 130/85 04/16/21 13:00 78 12 154/99 H 93 04/16/21 12:47 149/89 H 93 04/16/21 12:30 93 04/16/21 12:00 79 12 92 04/16/21 11:41 96 04/16/21 11:30 82 22 92 04/16/21 11:00 80 17 97 04/16/21 10:30 80 8 L 142/102 H 95 04/16/21 10:18 77 14 142/90 H 04/16/21 10:00 79 17 100 04/16/21 09:38 81 19 97 04/16/21 09:22 37.4 C 84 18 134/84 94 PG Care Time/CCT Total # of Minutes Spent Total Time Spent with Patient: Total time spent is greater than 50% in coordination of care (as documented) at patient's floor/unit and/or counseling patient: Coding Level of Care Code 80577 Initial Inpt Care Lvl 3 Diagnoses Metastatic lung cancer (metastasis from lung to other site) C34.90 Bilateral pleural effusion J90 Hypoxia R09.02 Liver metastases C78.7
[2021-04-16] MEDS: ENOXAPARIN INJ 30 MG/0.3 ML SYR SQ SCH (20:04)
[2021-04-16] MEDS: guaiFENesin/DEXTROM SYRUP 200MG/20MG 10ML UDC PO SCH ×2 (20:04→23:47)
[2021-04-16] MEDS: PIPERACILLIN/TAZOBACTAM 3.375 GM in DEXTROSE 5% 100 ML IV SCH (20:05)
[2021-04-16] MEDS: FLUTICASONE PROPIONATE NA SPR 16 GM BTL SCH (20:05)
[2021-04-16] MEDS ORDERED: guaiFENesin 600 MG TABCR PO SCH (21:00)
[2021-04-16] MEDS: ALBUT/IPRATROP 3MG/0.5MG NEB 3 ML VIAL NEB SCH (23:11)
[2021-04-17] MEDS: methylPREDNISolone 125 MG/2 ML VIAL IV SCH (02:14)
[2021-04-17] MEDS: PIPERACILLIN/TAZOBACTAM 3.375 GM in DEXTROSE 5% 100 ML IV SCH ×3 (02:18→18:45)
[2021-04-17] MEDS ORDERED: PNEUMOCOCCAL Polysaccharide Vaccine 25mcg/0.5mL vial/Syr IM ONE (05:15)
[2021-04-17] MEDS: guaiFENesin/DEXTROM SYRUP 200MG/20MG 10ML UDC PO SCH ×4 (05:26→23:37)
[2021-04-17] MEDS: LEVOTHYROXINE SODIUM 125 MCG TABLET PO SCH (05:26)
[2021-04-17] MEDS: ALBUT/IPRATROP 3MG/0.5MG NEB 3 ML VIAL NEB SCH ×4 (07:15→19:46)
[2021-04-17 07:17] LABS: Basophils # (auto) 0.03 K/uL (0-0.2); Basophils % (auto) 0.2 %; Eosinophils # (auto) 0.02 K/uL (0-0.5); Eosinophils % (auto) 0.1 %; Hematocrit (blood only) 33.6 % (37-47); Hemoglobin 10.1 g/dL (12.0-16.0); Immature Granulocytes # (auto) 0.69 K/uL (0.00-0.02); Immature Granulocytes % (auto) 4.5 %; Lymphocytes # (auto) 0.45 K/uL (1.2-3.4); Lymphocytes % (auto) 2.9 %; Mean Corpuscular Hemoglobin 30.6 pg (25-34); Mean Corpuscular Hgb Conc 30.1 g/dL (32-36); Mean Corpuscular Volume 101.8 fL (80-100); Mean Platelet Volume 9.9 fL (7.4-10.4); Monocytes # (auto) 0.43 K/uL (0.11-0.59); Monocytes % (auto) 2.8 %; Neutrophils % (auto) 89.5 %; Nucleated RBC # (auto) 0.03 K/uL (0-0); Nucleated RBC % (auto) 0.2 %; Platelet Count 348 K/uL (130-400); RDW Coefficient of Variation 17.9 % (11.5-14.5); RDW Standard Deviation 66.7 fL (36.4-46.3); White Blood Count 15.32 K/uL (4.8-10.8)
[2021-04-17] MEDS: LOSARTAN POTASSIUM 50 MG TAB PO SCH (07:52)
[2021-04-17] MEDS: FLUTICASONE PROPIONATE NA SPR 16 GM BTL SCH ×2 (07:52→20:32)
[2021-04-17] MEDS: FOLIC ACID 1 MG TAB PO SCH (07:53)
[2021-04-17] MEDS: POTASSIUM CHLORIDE CRTAB 20 MEQ TABCR PO SCH (07:53)
[2021-04-17 07:54] LABS: BUN Creatinine Ratio 14.5 (10-20); Calcium 8.1 mg/dl (8.5-10.1); Creatinine Clr Calc Pharmacy 26.7 ml/min; Est GFR (African American) 41.9 ml/min; Est GFR (Non-African American) 36.2 ml/min; Magnesium 2.3 mg/dl (1.8-2.4); Potassium 3.9 mmol/L (3.5-5.1)
[2021-04-17] MEDS ORDERED: predniSONE 10 MG TABLET PO SCH ×2 (09:00)
[2021-04-17] MEDS ORDERED: UMECLIDINIUM BROMIDE 62.5MCG/BLISTER 7 PUFFS/INHALER INH SCH (09:00)
[2021-04-17] MEDS ORDERED: methylPREDNISolone 125 MG/2 ML VIAL IV SCH (12:23)
--- NOTE | 2021-04-17 12:29 | Pulmonology Progress Note ---
Date of Service April 17, 2021 Assessment & Plan (1) Metastatic lung cancer (metastasis from lung to other site): (2) Bilateral pleural effusion: (3) Hypoxia: (4) Liver metastases: Plan: CT chest 04/16/2021 personally reviewed: Severe centrilobular and paraseptal emphysema appreciated, right upper lobe bullae Right upper lobe peripheral groundglass nodule Left-sided pleural effusion with compression atelectasis of the left lower lobe Debris in the RBI --Acute hypoxic respiratory failure Likely secondary to aspiration pneumonia COVID-19 PCR negative BNP: 1503 Nasal MRSA negative Patient is on chronic oxycodone Possibility of aspiration because of that is high Continue with aspiration precautions Continue with antibiotic O2 supplementation to keep O2 saturation between 88-92% --Bilateral pleural effusion More on the left side Likely from underlying malignancy --Metastatic non-small cell lung cancer Adenocarcinoma, EGFR positive Diagnosis 12/2016 --DNR/DNI Plan: Patient states she is feeling better. She is bringing up phlegm now Continue with chest PT, flutter valve as well as guaifenesin [id number] Go down on Solu-Medrol to 40 mg twice daily Change Incruse to Anoro Swallow eval ordered for the patient Repeat chest x-ray in the morning. The patient still has significant atelectasis on the right lower lobe plan we will plan bronchoscopy on Thursday Patient is agreeable to it. Please note the above document was generated using voice recognition software. It may contain grammatical, syntax or spelling errors.Any formal questions or concerns about the content, text or information contained within the body of this dictation should be directly addressed to the provider for clarification. Admission and Anticipated Discharge Date Admission Date: April 16, 2021 Subjective Patient seen and examined at bedside. No acute distress better compared to when she came to the hospital. No Chest pain, no headache, no nausea, no vomiting Fair appetite Review of Systems Review of Systems: All systems reviewed & are unremarkable except as noted in Subjective Physical Exam Physical Exam: Constitutional: No acute distress, frail-appearing HEENT: EOMI, PERRLA Respiratory system: Decreased air entry bilaterally, no wheeze, positive rhonchi, positive crackles bilateral lower lobes CVS: S1-S2 positive, positive 2 out of 6 systolic murmur appreciated best at the aorta, left-sided Port-A-Cath Abdomen: Soft, nontender, nondistended, positive bowel sounds x4 Extremities: +2 pulses bilaterally radialis/ dorsalis pedis, +2 pitting edema bilateral lower extremity Neuro: Awake alert oriented x3 Psych: Normal mood and affect G/U: No Valle Skin: no rashes, warm and dry Lymphatic: no cervical or axillary lymphadenopathy Results & Data Results & Data ([facility]) Vital Signs (Past 12 Hours) Vital Signs Temp Pulse Pulse Resp BP Pulse Ox 04/17/21 10:32 79 20 94 04/17/21 08:00 63 04/17/21 07:57 96 04/17/21 07:16 64 18 94 04/17/21 06:49 36.7 C 68 19 152/93 H 92 04/17/21 03:31 36.5 C 72 20 138/85 92 Laboratory Results 04/17/21 07:00 04/17/21 07:00 PG Care Time/CCT Total # of Minutes Spent Total Time Spent with Patient: Total time spent is greater than 50% in coordination of care (as documented) at patient's floor/unit and/or counseling patient: Coding Level of Care Code 72126 Subseq Hosp Care Lvl 3 Diagnoses Metastatic lung cancer (metastasis from lung to other site) C34.90 Bilateral pleural effusion J90 Hypoxia R09.02 Liver metastases C78.7
[2021-04-17] MEDS: methylPREDNISolone 40 MG in SYRINGE 0 ML IV SCH ×2 (12:53→23:37)
--- NOTE | 2021-04-17 15:28 | Hospitalist Progress Note ---
Date of Service April 17, 2021 Assessment & Plan (1) Pneumonia: Plan: Mrs. Benavidez is a 65-year-old female with a history of Emphysema/COPD, Lung Cancer with metastases to bone and liver, Nocturnal Hypoxia, Hypothyroidism, Hypertension, GERD, Esophageal Stenosis, Anemia, and Hypocalcemia who was referred to [facility] ER from the Cancer Center where she was supposed to receive her Gemzar therapy today, but was noticeably short of breath, edematous, and her SpO2 was 66%. She typically uses supplemental oxygen at night but not during the day. Apparently she was having an ultrasound done of her abdomen a couple weeks ago and was noted to have an O2 saturation in the 70's. This responded well to supplemental oxygen but she has not been wearing oxygen during the day. Patient also has some fatigue, chronic left upper extremity swelling (this was evaluated with ultrasound, no evidence of DVT), and over the past month she has been having increased lower extremity edema extending up into her lower abdomen. Patient offers no other complaints. She denies any fevers, chills, headaches, stiff neck, chest discomfort, pleuritic chest pain, increased cough, sputum production, or any hemoptysis. Patient states that her diet has been steady. She has not had any nausea or vomiting. Initially was requiring O2 via Oxymask at 7 L/min Chest x-ray in the emergency room shows moderate left and small right pleural effusions and a left retrocardiac airspace opacity which may represent atelectasis, pneumonia, and/or aspiration. CTA of chest shows no evidence of pulmonary embolus, mucoid opacification within the right middle and lower lobe bronchi with partial collapse of the right middle lobe, patchy densities in the right middle lobe and lower lobe and progressive consolidation within the left lung base favoring compressive atelectasis versus pneumonia, emphysema, and extensive osteoblastic metastatic lesions within the bones. Additionally, her white blood cell count is elevated at 16.20 K/uL with a leftward shift, and she is anemic with a hemoglobin of 10.1 g/dL. basic metabolic panel shows potassium of 3.5 mmol/L, BUN 19 mg/dL, creatinine 1.36 mg/dL, and a blood glucose 102 mg/dL. Her troponin I level is undetectable, and her proBNP is mildly elevated at 1503 pg/ml. COVID-19 test was negative She was admitted and placed on IV Zosyn Improving and oxygen requirement is down to 4 L Continue pulmonary toilet with flutter valve, chest percussion therapy Appreciate pulmonary consultation-plan for bronchoscopy on Thursday Continue IV Solu-Medrol and taper down to home dose of prednisone 10 mg daily Continue DuoNeb nebulizer treatments. Continue guaifenesin [id number] Pulmonary changed her to Anoro (2) Hypoxia: Plan: As above Improving (3) Leukocytosis: Plan: Continues but now is also on corticosteroids Follow CBC (4) Mucus plugging of bronchi: Plan: As above Avoid oversedation with opioids due to increasing risk of aspiration (5) Metastatic lung cancer (metastasis from lung to other site): Plan: NSCLC with metastases to bones and liver. -- CTAP shows progression of metastatic disease within the liver. -- On Gemzar. Follow-up with oncology after discharge Discussed goals of care and she wishes to continue palliative treatment as long as she is not having severe side effects (6) Emphysema lung: Plan: -- Manage as outlined above. (7) Hypertension: Plan: Blood pressures are controlled -- Continue Losartan 100 mg daily. (8) Anasarca: Plan: Anasarca /edema may be secondary to Gemzar, but she's also markedly hypoalbuminemic. She was given 1 dose of IV Lasix on admission and creatinine jumped up a bit to 1.5 Hold off on any further Lasix Improve nutritional status (9) Anemia: Plan: Hemoglobin 10.1 and is macrocytic B12 and folate levels were recently checked and were normal in 02/2021 Continue home folic acid supplement (10) Hypothyroidism: Plan: TSH not checked in 2 years She is not on medication for this Check TSH in the morning Plan: DVT prophylaxis-Lovenox 30 Mg SQ once daily-we will need to hold for bronchoscopy on Thursday Disposition-okay to downgrade to medical/surgical floor Admission and Anticipated Discharge Date Admission Date: April 16, 2021 Subjective Patient reports feeling better today, coughing up some mucus, less short of breath, but still wheezing. Is on 4 L nasal cannula and her baseline at home is 3 L. No other complaints. Telemetry is normal sinus rhythm with rates in the 60s to 70s Denies chest pain Review of Systems Review of Systems: All systems reviewed & are unremarkable except as noted in HPI & below Physical Exam Constitutional: + ill appearing (Chronically ill-appearing), + cachectic and + underweight Eyes: + anicteric sclerae Neck: trachea midline, no thyromegaly Respiratory: normal respiratory effort and + cough Auscultation: + diminished lung sounds (At right base), + rhonchi (Right midlung) and + wheezes (Diffuse) Cardiovascular: Rate/Rhythm: regular rate and regular rhythm Heart Sounds: no murmur Extremities: + edema (2+ pitting edema of the legs bilaterally, 1+ of the left upper extremity) Chest (Breasts): Chest: normal inspection of chest Gastrointestinal (Abdomen): normal bowel sounds, soft, nontender, no hepatosplenomegaly Musculoskeletal: Extremities: extremities normal to inspection; no cyanosis and no clubbing Skin: no rashes, warm and dry Neurologic: moves all extremities and awake; no focal motor deficits Psychiatric: A+Ox3, euthymic affect Lymphatic: no lymphedema Results & Data Results & Data ([facility]) Vital Signs (Past 12 Hours) Vital Signs Temp Pulse Pulse Resp BP Pulse Ox 04/17/21 14:19 69 20 94 04/17/21 11:00 37.0 C 88 16 110/67 04/17/21 10:32 79 20 94 04/17/21 08:00 63 04/17/21 07:57 96 04/17/21 07:16 64 18 94 04/17/21 06:49 36.7 C 68 19 152/93 H 92 04/17/21 03:31 36.5 C 72 20 138/85 92 Laboratory Results 04/17/21 04/17/21 Range/Units 07:00 07:00 WBC 15.32 H (4.8-10.8) K/uL RBC 3.30 L (4.2-5.4) M/uL Hgb 10.1 L (12.0-16.0) g/dL Hct 33.6 L (37-47) % MCV 101.8 H (80-100) fL MCH 30.6 (25-34) pg MCHC 30.1 L (32-36) g/dL RDW Std Deviation 66.7 H (36.4-46.3) fL RDW Coeff of Maxi 17.9 H (11.5-14.5) % Plt Count 348 (130-400) K/uL MPV 9.9 (7.4-10.4) fL Immature Gran % (Auto) 4.5 % Neut % (Auto) 89.5 % Lymph % (Auto) 2.9 % [place] % (Auto) 2.8 % Eos % (Auto) 0.1 % Baso % (Auto) 0.2 % Neut # (Auto) 13.70 H (1.4-6.5) K/uL Lymph # (Auto) 0.45 L (1.2-3.4) K/uL [place] # (Auto) 0.43 (0.11-0.59) K/uL Eos # (Auto) 0.02 (0-0.5) K/uL Baso # (Auto) 0.03 (0-0.2) K/uL Immature Gran # (Auto) 0.69 H (0.00-0.02) K/uL Absolute Nucleated RBC 0.03 H (0-0) K/uL Nucleated RBC % (auto) 0.2 % Sodium 135 L (136-145) mmol/L Potassium 3.9 (3.5-5.1) mmol/L Chloride 99 (98-107) mmol/L Carbon Dioxide 33 H (21-32) mmol/L Anion Gap 3.0 (3-11) BUN 22 H (7-18) mg/dl Creatinine 1.50 H (0.6-1.2) mg/dl Est Cr Clr Drug Dosing 26.7 ml/min Est GFR ( Amer) 41.9 ml/min Est GFR (Non-Af Amer) 36.2 ml/min BUN/Creatinine Ratio 14.5 (10-20) Glucose 147 H (70-99) mg/dl Calcium 8.1 L (8.5-10.1) mg/dl Magnesium 2.3 (1.8-2.4) mg/dl PG Care Time/CCT Total # of Minutes Spent Total Time Spent with Patient: Total time spent is greater than 50% in coordination of care (as documented) at patient's floor/unit and/or counseling patient: Coding Level of Care Code 15998 Subseq Hosp Care Lvl 3 Diagnoses Pneumonia J18.9 Hypoxia R09.02 Leukocytosis D72.829 Mucus plugging of bronchi T17.500A Metastatic lung cancer (metastasis from lung to other site) C34.90 Emphysema lung J43.9 Hypertension I10 Anasarca R60.1 Anemia D64.9 Anemia type: unspecified type Hypothyroidism E03.9 (1) Anemia Anemia type: unspecified type Qualified Code(s): D64.9 - Anemia, unspecified
[2021-04-17] MEDS: HEPARIN 100 UNIT/ML 5ML FLUSH FLUSH PRN ×2 (15:52→22:50)
[2021-04-17] MEDS: ENOXAPARIN INJ 30 MG/0.3 ML SYR SQ SCH (20:13)
[2021-04-18] MEDS: PIPERACILLIN/TAZOBACTAM 3.375 GM in DEXTROSE 5% 100 ML IV SCH ×2 (03:39→11:24)
[2021-04-18] MEDS: guaiFENesin/DEXTROM SYRUP 200MG/20MG 10ML UDC PO SCH ×2 (05:42→12:41)
[2021-04-18] MEDS: LEVOTHYROXINE SODIUM 125 MCG TABLET PO SCH (05:42)
[2021-04-18 06:26] LABS: Hematocrit (blood only) 30.9 % (37-47); Hemoglobin 9.4 g/dL (12.0-16.0); Mean Corpuscular Hemoglobin 31.4 pg (25-34); Mean Corpuscular Hgb Conc 30.4 g/dL (32-36); Mean Corpuscular Volume 103.3 fL (80-100); Mean Platelet Volume 9.5 fL (7.4-10.4); Nucleated RBC # (auto) 0.03 K/uL (0-0); Nucleated RBC % (auto) 0.1 %; Platelet Count 410 K/uL (130-400); RDW Coefficient of Variation 18.4 % (11.5-14.5); RDW Standard Deviation 68.4 fL (36.4-46.3); Red Blood Count 2.99 M/uL (4.2-5.4); White Blood Count 23.29 K/uL (4.8-10.8)
[2021-04-18 06:46] LABS: Basophils # (auto) 0.02 K/uL (0-0.2); Basophils % (auto) 0.1 %; Immature Granulocytes # (auto) 0.93 K/uL (0.00-0.02); Lymphocytes # (auto) 1.36 K/uL (1.2-3.4); Lymphocytes % (auto) 5.8 %; Monocytes # (auto) 0.31 K/uL (0.11-0.59); Monocytes % (auto) 1.3 %; Neutrophils # (auto) 20.67 K/uL (1.4-6.5); Neutrophils % (auto) 88.8 %; Polychromasia 1+
[2021-04-18 07:02] LABS: BUN Creatinine Ratio 15.8 (10-20); Calcium 8.4 mg/dl (8.5-10.1); Creatinine Clr Calc Pharmacy 25.2 ml/min; Est GFR (African American) 39.1 ml/min; Est GFR (Non-African American) 33.7 ml/min; Potassium 3.8 mmol/L (3.5-5.1)
[2021-04-18 07:12] LABS: Thyroid Stimulating Hormone 68.7 uIu/ml (0.300-4.500)
--- NOTE | 2021-04-18 07:35 | XRay Report ---
XR chest 1V portable HISTORY: 65 years-old Female f/u follow-up study in a patient with acute shortness of breath COMPARISON: Chest radiograph and CTA chest 04/16/2021 TECHNIQUE: Portable AP view of the chest FINDINGS: Cardiac silhouette is enlarged. Left greater than right pleural effusions redemonstrated. Severe emph ysema with interstitial coarsening. Left greater than right bibasilar airspace opacities. No pneumoth orax or overt pulmonary edema. Extensive osteoblastic skeletal metastatic disease again noted. Left s ubclavian Cqhlrr-e-Pwij catheter distal tip terminates in the expected location of the mid SVC. IMPRESSION: 1. Left greater than right pleural effusions with bibasilar consolidation redemonstrated. 2. Severe emphysema with chronic interstitial coarsening. 3. Extensive osteoblastic skeletal metastatic disease. ACT 112: Negative or not required by law. The above report was generated using voice recognition software. It may contain grammatical, syntax o r spelling errors. Electronically signed by: Grupo Ames M.D. 04/18/2021 7:34 AM
[2021-04-18] MEDS: HEPARIN 100 UNIT/ML 5ML FLUSH FLUSH PRN ×2 (07:54→15:06)
[2021-04-18] MEDS: FLUTICASONE PROPIONATE NA SPR 16 GM BTL SCH (07:57)
[2021-04-18] MEDS: LOSARTAN POTASSIUM 50 MG TAB PO SCH (07:58)
[2021-04-18] MEDS: FOLIC ACID 1 MG TAB PO SCH (07:58)
[2021-04-18] MEDS: ALBUT/IPRATROP 3MG/0.5MG NEB 3 ML VIAL NEB SCH ×3 (08:09→14:10)
[2021-04-18] MEDS ORDERED: UMECLIDINIUM/VILANTEROL 62.5/25MCG 7 PUFFS/INHALER INH SCH (09:00)
[2021-04-18] MEDS: POTASSIUM CHLORIDE CRTAB 20 MEQ TABCR PO SCH (11:22)
[2021-04-18] MEDS ORDERED: LEVOTHYROXINE SODIUM 100 MCG in SYRINGE 0 ML IV SCH (11:30)
--- NOTE | 2021-04-18 14:21 | Pulmonology Progress Note ---
Date of Service April 18, 2021 Assessment & Plan (1) Metastatic lung cancer (metastasis from lung to other site): (2) Bilateral pleural effusion: (3) Hypoxia: (4) Liver metastases: Plan: CT chest 04/16/2021 reviewed: Severe centrilobular and paraseptal emphysema a ppreciated, right upper lobe bullae Right upper lobe peripheral groundglass nodule Left-sided pleural effusion with compression atelectasis of the left lower lobe Debris in the RBI CXR today reviewed: Persistent effusions and atelectasis and emphysema. --Acute hypoxic respiratory failure Likely secondary to aspiration pneumonia Chronic respiratory failure requiring chronic supplemental oxygen Continue flutter valve and pulmonary toileting on discharge Continue mucinex q12h at home Atelectasis of RLL improved. No indication for bronchoscopy at this time COPD with emphysema: Discharge home on Anoro elipta Maintain SaO2 between 88-92% Change solumedrol to prednisone and taper as tolerated COVID-19 PCR negative BNP: 1503 Nasal MRSA negative Patient is on chronic oxycodone Possibility of aspiration because of that is high Continue with aspiration precautions Continue with antibiotic O2 supplementation to keep O2 saturation between 88-92% --Bilateral pleural effusion More on the left side Likely from underlying malignancy No intervention at this time --Metastatic non-small cell lung cancer Adenocarcinoma, EGFR positive Diagnosis 12/2016 Continue chemotherapy per oncology --DNR/DNI The pulmonary service will sign off at this time Admission and Anticipated Discharge Date Admission Date: April 16, 2021 Subjective Attending: Dr. Piedra Patient seen and examined in room 359. She states that she feels better and is at baseline. She uses supplemental O2 at home. She is questioning discharge plan and says she feels ready to ho home. She denies fever or chills. She reports whitish sputum. She has no acute complaints. Review of Systems Review of Systems: All systems reviewed & are unremarkable except as noted in Subjective Physical Exam Constitutional: No acute distress. Pleasant Eyes: PERRL, conjunctivae normal, anicteric sclerae Neck: No appreciation of stridor or carotid bruits Respiratory: normal respiratory effort; no respiratory distress Auscultation: lungs clear to auscultation bilaterally and + diminished lung sounds Cardiovascular: Rate/Rhythm: regular rate and regular rhythm Musculoskeletal: Head/Neck/Chest: + abnormal palpation of chest wall Results & Data Results & Data ([facility]) Vital Signs (Past 12 Hours) Vital Signs Temp Pulse Resp BP Pulse Ox 04/18/21 08:11 70 18 90 04/18/21 07:35 36.4 C L 70 16 166/92 H 91 Laboratory Results 04/18/21 06:13 04/18/21 06:13 Diagnostic Findings Chest X-Ray 04/18/21 07:00 XR chest 1V portable HISTORY: 65 years-old Female f/u follow-up study in a patient with acute shortness of breath COMPARISON: Chest radiograph and CTA chest 04/16/2021 TECHNIQUE: Portable AP view of the chest FINDINGS: Cardiac silhouette is enlarged. Left greater than right pleural effusions redemonstrated. Severe emphysema with interstitial coarsening. Left greater than right bibasilar airspace opacities. No pneumothorax or overt pulmonary edema. Extensive osteoblastic skeletal metastatic disease again noted. Left subclavian Gylnsd-r-Bfme catheter distal tip terminates in the expected location of the mid SVC. IMPRESSION: 1. Left greater than right pleural effusions with bibasilar consolidation redemonstrated. 2. Severe emphysema with chronic interstitial coarsening. 3. Extensive osteoblastic skeletal metastatic disease. ACT 112: Negative or not required by law. The above report was generated using voice recognition software. It may contain grammatical, syntax or spelling errors. Electronically signed by: Grupo Ames M.D. 04/18/2021 7:34 AM PG Care Time/CCT Total # of Minutes Spent Total Time Spent with Patient: Total time spent is greater than 50% in coordination of care (as documented) at patient's floor/unit and/or counseling patient: Coding Level of Care Code 63470 Subseq Hosp Care Lvl 2 Diagnoses Metastatic lung cancer (metastasis from lung to other site) C34.90 Bilateral pleural effusion J90 Hypoxia R09.02 Liver metastases C78.7
--- NOTE | 2021-04-18 16:09 | Discharge Summary ---
Date of Service April 18, 2021 Admission HPI Per Admitting Provider Mrs. Benavidez is a 65-year-old female with a history of Emphysema/COPD, Lung Cancer with metastases to bone and liver, Nocturnal Hypoxia, Hypothyroidism, Hypertension, GERD, Esophageal Stenosis, Anemia, and Hypocalcemia who was referred to [facility] from the Cancer Center where she was supposed to receive her Gemzar therapy today, but was noticeably short of breath, edematous, and her SpO2 was 66%. She typically uses supplemental oxygen at night but not during the day. Apparently she was having an ultrasound done of her abdomen a couple weeks ago and was noted to have an O2 saturation in the 70's. This responded well to supplemental oxygen but she has not been wearing oxygen during the day. Patient also has some fatigue, chronic left upper extremity swelling (this was evaluated with ultrasound, no evidence of DVT), and over the past month she has been having increased lower extremity edema extending up into her lower abdomen. Patient offers no other complaints. She denies any fevers, chills, headaches, stiff neck, chest discomfort, pleuritic chest pain, increased cough, sputum production, or any hemoptysis. Patient states that her diet has been steady. She has not had any nausea or vomiting. Patient's currently on O2 via Oxymask at 7 L/min. Principal Diagnosis Acute on chronic respiratory failure with hypoxia and hypercarbia, pneumonia, m etastatic lung cancer Discharge Exam Constitutional + ill appearing (Chronically ill-appearing), + cachectic and + underweight Eyes + anicteric sclerae Neck trachea midline, no thyromegaly Respiratory normal respiratory effort and + cough Auscultation: + diminished lung sounds (At right base), + rhonchi (Right midlung) and + wheezes (Diffuse) Cardiovascular Rate/Rhythm: regular rate and regular rhythm Heart Sounds: no murmur Extremities: + edema (2+ pitting edema of the legs bilaterally, 1+ of the left upper extremity) Chest (Breasts) Chest: normal inspection of chest Gastrointestinal (Abdomen) normal bowel sounds, soft, nontender, no hepatosplenomegaly Musculoskeletal Extremities: extremities normal to inspection; no cyanosis and no clubbing Skin no rashes, warm and dry Neurologic moves all extremities and awake; no focal motor deficits Psychiatric A+Ox3, euthymic affect Lymphatic no lymphedema Discharge Data Allergies Allergy/AdvReac Type Severity Reaction Status Date / Time red dye Allergy Mild LIGHTHEADED Verified 04/16/21 11:53 No Known Drug Allergies Allergy Verified 04/16/21 11:53 Consultations 04/16/21 13:40 ED Decision to Admit Stat 04/16/21 17:53 Consult Pulmonology Routine Ordered Studies 04/16/21 09:40 CT angio chest PE protocol Stat 04/16/21 10:04 CT abd pelvis IV con only Stat Hospital Course (1) Pneumonia: Mrs. Benavidez is a 65-year-old female with a history of Emphysema/COPD, Lung Cancer with metastases to bone and liver, Nocturnal Hypoxia, Hypothyroidism, Hypertension, GERD, Esophageal Stenosis, Anemia, and Hypocalcemia who was referred to [facility] from the Cancer Center where she was supposed to receive her Gemzar therapy today, but was noticeably short of breath, edematous, and her SpO2 was 66%. She typically uses supplemental oxygen at night but not during the day. Apparently she was having an ultrasound done of her abdomen a couple weeks ago and was noted to have an O2 saturation in the 70's. This responded well to supplemental oxygen but she has not been wearing oxygen during the day. Patient also has some fatigue, chronic left upper extremity swelling (this was evaluated with ultrasound, no evidence of DVT), and over the past month she has been having increased lower extremity edema extending up into her lower abdomen. Patient offers no other complaints. She denies any fevers, chills, headaches, stiff neck, chest discomfort, pleuritic chest pain, increased cough, sputum production, or any hemoptysis. Patient states that her diet has been steady. She has not had any nausea or vomiting. Initially was requiring O2 via Oxymask at 7 L/min, now weaned down to 4 L continuously and doing better, feeling better, and quite anxious to be discharged home She does have portable oxygen at home, but previously had not been using it. Chest x-ray in the emergency room shows moderate left and small right pleural effusions and a left retrocardiac airspace opacity which may represent atelectasis, pneumonia, and/or aspiration. CTA of chest shows no evidence of pulmonary embolus, mucoid opacification within the right middle and lower lobe bronchi with partial collapse of the right middle lobe, patchy densities in the right middle lobe and lower lobe and prog ressive consolidation within the left lung base favoring compressive atelectasis versus pneumonia, emphysema, and extensive osteoblastic metastatic lesions within the bones. Additionally, her white blood cell count is elevated at 16.20 K/uL with a leftward shift, and she is anemic with a hemoglobin of 10.1 g/dL. basic metabolic panel shows potassium of 3.5 mmol/L, BUN 19 mg/dL, creatinine 1.36 mg/dL, and a blood glucose 102 mg/dL. Her troponin I level is undetectable, and her proBNP is mildly elevated at 1503 pg/ml. COVID-19 test was negative She was admitted and placed on IV Zosyn Improving and oxygen requirement is down to 4 L-advised continuous 4 L nasal cannula upon discharge-her home oxygen company delivered her portable tank to the hospital prior to discharge Continue pulmonary toilet with flutter valve after discharge Appreciate pulmonary consultation-plan initially for bronchoscopy, but she had significant improvement in chest x-ray atelectasis improved on the day of d ischarge-bronchoscopy canceled Was treated with IV Solu-Medrol and will switch to prednisone 40 mg p.o. once daily and taper down by 10 mg every 2 days until back to home dose of prednisone 10 mg daily Continue DuoNeb nebulizer treatments. Continue guaifenesin [id number] Pulmonary changed her to Anoro -Was also treated with IV Zosyn-will discharge to home on 5 more days of levofloxacin (2) Hypoxia: As above Improving but now needs 4 L nasal cannula continuously (3) Leukocytosis: Continues but now is also on corticosteroids (4) Mucus plugging of bronchi: As above, improving with flutter valve and antibiotic therapy Avoid oversedation with opioids due to increasing risk of aspiration (5) Metastatic lung cancer (metastasis from lung to other site): NSCLC with metastases to bones and liver. -- CTAP shows progression of metastatic disease within the liver. -- On Gemzar. Follow-up with oncology after discharge Discussed goals of care and she wishes to continue palliative treatment as long as she is not having severe side effects (6) Emphysema lung: -- Manage as outlined above. (7) Hypertension: Blood pressures are controlled -- Continue Losartan 100 mg daily. (8) Anasarca: Anasarca /edema may be secondary to Gemzar, but she's also markedly hypoalbuminemic. She was given 1 dose of IV Lasix on admission and creatinine jumped up a bit to 1.5 Hold off on any further Lasix Improve nutritional status Of note, her TSH was also quite elevated at 68.7-perhaps some of her edema secondary to hypothyroidism Increase in dose of levothyroxine as below (9) Anemia: Hemoglobin 9.4 and is macrocytic B12 and folate levels were recently checked and were normal in 02/2021 Continue home folic acid supplement Follow with oncology (10) Hypothyroidism: TSH not checked in 2 years in our system prior to this admission. TSH here is 68.7 She does report that she takes her levothyroxine on an empty stomach in the morning Suspect that she may have some gut wall edema preventing great absorption Give one dose of IV levothyroxine here Advised increased dose of levothyroxine to 150 mcg p.o. once daily and follow-up thyroid function studies as an outpatient in 4 to 6 weeks with PCP DVT prophylaxis-Lovenox 30 Mg SQ once daily was provided Disposition-stable for discharge to home on home oxygen Total Time Total Time Spent Total Time Spent (In Minutes): 45 minutes Total Time Includes: Examination of the Patient, Discharge Planning, Medication Reconciliation and Communication With Other Providers (Pulmonology, case management) Discharge Plan Discharge Items Patient Disposition: Home - Home Health Services Reason For Visit: HYPOXIA, METASTATIC LUNG CANCER Discharge Diagnosis: Acute on chronic respiratory failure with hypoxia and hypercapnia, Pneumonia, metastatic lung cancer, Hypothyroidism Condition on Discharge: Fair Activity: Resume your previous activity Non-emergency contact: Primary Care Provider and Oncologist Call non-emergency contact if: you have any medication questions, your symptoms worsen, your pain is not controlled and you have a fever Follow-up/Referrals: Dorothy Gutierrez DO [Primary Care Provider] - (Follow up within 1-2 weeks ) Diet: Regular Addtl Attending Provider Instructions: You were admitted for severely low oxygen levels and treated for pneumonia and COPD exacerbation. You will need to complete a taper of prednisone back to your usual 10mg daily dose, a course of antibiotics for 5 more days, and continue using your flutter valve 4 times a day to help get mucus out. It is very important that you use 4L of oxygen at all times when you go home. Please follow up with ESEQUIEL Duarte from Oncology within 1 week and your PCP within 1-2 weeks. You were recommended to have a swallow study by the Vegetable Handler to make sure you are not aspirating (breathing things you swallow into your lungs). This can be ordered by your PCP or by Horace Shimon as an outpatient. Your thyroid function was very low with your TSH being 68. Your thyroid medication was increased to 150 mcg once daily and should be taken on an empty stomach and at least 60 min before a meal. Please have your PCP recheck your thyroid function test in 6 weeks. Pending Studies at Discharge: No Stand-Alone Forms: My [facility], Smoking Cessation Medications and DC Order Prescriptions: New Anoro Ellipta 62.5-25 mcg/actuation Blister With Device 1 ea inhalation DAILY Qty: 60 RF: 0 Robitussin Cough-Chest Emeka DM 5-100 mg/5 mL Liquid 10 ml PO Q6H 7 Days Qty: 280 RF: 0 levothyroxine 150 mcg tablet 150 mcg PO DAILY Qty: 30 RF: 0 prednisone 10 mg tablet 40 mg PO DAILY Qty: 18 RF: 0 levofloxacin 750 mg tablet 750 mg PO DAILY 5 Days Qty: 5 RF: 0 Continued prednisone 10 mg Tablet 10 mg PO QAM RF: 0 potassium chloride 20 mEq Tablet,Er Particles/Crystals 20 meq PO QAM RF: 0 folic acid 1 mg Tablet 1 mg PO QAM RF: 0 losartan 100 mg Tablet 100 mg PO QAM RF: 0 fluticasone propionate [Flonase Allergy Relief] 50 mcg/actuation [place],Suspension 1 spray INTRANASAL BID RF: 0 ondansetron HCl 8 mg tablet 8 mg PO Q8H PRN (Reason: Nausea And Vomiting) RF: 0 oxycodone 5 mg tablet 5 mg PO Q8H PRN (Reason: Pain) RF: 0 Discontinued levothyroxine 125 mcg Tablet 125 mcg PO QAM RF: 0 Spiriva Respimat 2.5 mcg/actuation Mist 2 puff INHALATION BID RF: 0 Discharge Orders: Discharge Order (Routine); Ordered 04/18/21 Ordered By: Mariana Garcia/Other Patient Handouts: ED Lymphedema Admission Data Admit Date/Time: 04/16/21 15:03 Attending Provider: Mariana Ahmadi Admit Provider: Mariana Ahmadi Primary Care Provider: Dorothy Gutierrez Other Providers: Mariana Ahmadi ; Lolis Piedra Other Interventions: Discharge Summary Assessment (RN) Last Done: 04/18/21 17:37 Coding Level of Care Code D/C DAY MANAGEMENT >30 MINS Diagnoses Pneumonia J18.9 Hypoxia R09.02 Leukocytosis D72.829 Mucus plugging of bronchi T17.500A Metastatic lung cancer (metastasis from lung to other site) C34.90 Emphysema lung J43.9 Hypertension I10 Anasarca R60.1 Anemia D64.9 Anemia type: unspecified type Hypothyroidism E03.9
[2021-04-18] MEDS: methylPREDNISolone 40 MG in SYRINGE 0 ML IV SCH (17:20)
== END 2021-04-18 18:30 | disposition home or self-care (01) | DRG 193 ==
LOC: ED 09:21 → EDINP 15:03 → 2S 17:54 → 3W 04-17 18:48

== ENCOUNTER 2021-07-23 23:03 | Inpatient (IN) ==
--- NOTE | 2021-07-23 23:24 | History & Physical Report ---
Date of Service July 23, 2021 Assessment & Plan (1) Acute kidney injury superimposed on CKD: Plan: 65 year old female w/ COPD on 3L home O2, metastatic lung cancer on recent chemo, HTN, hypothyroidism who presents as a direct admit from [facility] for uptrending creatinine 1.5 (04/2021) -> 2.73->3.61->4.13 (06/2021) -> 6.6 (07/23/21) as dialysis if indicated, is not offered at [facility]. - Creatinine as per above. Follow BMP. Urgent dialysis not indicated per acceptable electrolyte levels. Will check VBG. - BUN/cr ratio less suggestive of prerenal etiology. FeNa labs and UA ordered. ATN less likely given time course of elevated Cr. Considered obstructive etiology as patient has some urinary retention (700+mL on bladder scan and reportedly had concern for urinary retention at outside ED). Bladder scan q6h and straight cath prn. - consult nephrology - not providing IV fluids at this time given concern for possible hypervolemia. - renal US and duplex ordered - FeNa labs ordered (2) Hypocalcemia: Plan: - 5.1, (6.1 corrected); likely 2/2 hyperphosphatemia from renal dysfunction - ordered ical - repleting w/ 1g calcium gluconate IV (3) Hyperphosphatemia: Plan: - 7.9. ordered phoslo phosphate binder (4) Bilateral lower extremity edema: Plan: - no echo in system. TTE in AM - not providing IV fluids at this time. (5) COPD (chronic obstructive pulmonary disease): Plan: - appears end-stage. on 3L home O2 - 04/2021 admission for acute on chronic respiratory failure with hypoxia and hypercarbia and pneumonia - considered COPD exacerbation, but symptoms relatively mild. Severe elevation in Cr noted, any medications will need to be used carefully. (6) Hypertension: Plan: - hold home losartan in setting of KACEY (7) Esophageal dysphagia: Plan: - may be contributing to loud upper airway sounds auscultated at neck (8) Generalized weakness: Plan: - may be 2/2 to hypervolemia, KACEY, or copd exac (9) Metastatic lung cancer (metastasis from lung to other site): Plan: - chronic. recent chemo 2 wks prior noted. per patient, on chronic prednisone 10mg daily for this; steroid use would contribute to leukocytosis (10) Liver metastases: Plan: - avoid hepatotoxic agents and use tylenol cautiously (11) GERD (gastroesophageal reflux disease): Plan: - hold home pantoprazole in setting of KACEY (12) Hypothyroidism: Plan: - continue home regimen (13) Acute urinary retention: Plan: - see above Plan: FEN/GI: Dialysis renal diet code: full ppx: sq heparin dispo: PCU Admission and Anticipated Discharge Date Admission Date: July 23, 2021 History of Present Illness Chief Complaint: KACEY Primary Care Provider: Dorothy Gutierrez DO 65 year old female w/ COPD on 3L home O2, metastatic lung cancer on recent chemo, HTN, hypothyroidism who presents as a direct admit from [facility] where she was seen this evening for several days of fatigue, generalized wkness, leg swelling, and slightly worsened dyspnea/cough. She was transferred to [facility] because her creatinine was 6.6, w/ progressive uptrending in the past 2 months. Patient has had lymphedema in the past, but notes she did not notice leg swelling until several days ago and it has made it difficult to ambulate. She has had slight increased light yellow sputum production and mild cough. She states her respiratory symptoms are worse than her usual, but are not too bad. She denies fever/chills, abdominal/urinary symptoms, or pain. Her last chemotherapy was 2 weeks ago. She quit tobacco use 10 years ago. Patient denies any bleeding symptoms and is not on antiocagulation. Denies hx of VTE. She is on chronic prednisone 10mg. She lives with her sister. She has had her covid booster. Outside hospital labs: wbc 20. hb 9. Ca 4.9, 6.1 corrected. Cr 6.6. egfr 7. She was given IV calcium. anion gap 17.9. Allergies Allergy/AdvReac Type Severity Reaction Status Date / Time red dye Allergy Mild LIGHTHEADED Verified 06/24/21 09:54 No Known Drug Allergies Allergy Verified 06/24/21 09:54 Home Medications Medication Instructions Recorded Confirmed Type folic acid 1 mg tablet 1 mg PO QAM 10/22/18 07/24/21 History potassium chloride 20 mEq 20 meq PO QAM 10/22/18 07/24/21 History tablet,extended release(part/cryst) prednisone 10 mg tablet 10 mg PO QAM 10/22/18 07/24/21 History fluticasone propionate 50 1 spray INTRANASAL BID 02/14/19 07/24/21 History mcg/actuation nasal spray,suspension (Flonase Allergy Relief) losartan 100 mg tablet 100 mg PO QAM 10/12/19 07/24/21 History ondansetron HCl 8 mg tablet 8 mg PO Q8H PRN 04/16/21 07/24/21 History oxycodone 5 mg tablet 5 mg PO Q8H PRN 04/16/21 07/24/21 History albuterol sulfate 90 mcg/actuation 1 inh INHALATION QID PRN 06/13/21 07/24/21 History aerosol inhaler pantoprazole 40 mg tablet,delayed 40 mg PO QAM 06/13/21 07/24/21 History release umeclidinium 62.5 mcg-vilanterol 1 ea INHALATION QAM 06/13/21 07/24/21 History 25 mcg/actuation powdr for inhalation (Anoro Ellipta) amlodipine 10 mg tablet 10 mg PO DAILY 07/05/21 07/24/21 History benzonatate 100 mg capsule 100 mg PO QAM 07/24/21 07/24/21 History levothyroxine 125 mcg tablet 175 mcg PO QAM 07/24/21 07/24/21 History prochlorperazine maleate 10 mg 10 mg PO BID PRN 07/24/21 07/24/21 History tablet roflumilast 500 mcg tablet 500 mcg PO QPM 07/24/21 07/24/21 History (Daliresp) tiotropium bromide 2.5 2 puff INHALATION QID 07/24/21 07/24/21 History mcg/actuation mist for inhalation (Spiriva Respimat) Past Med/Surg History Medical History COPD (chronic obstructive pulmonary disease) Dysphagia HX ESOPHAGEAL STRETCHING GERD (gastroesophageal reflux disease) Hypertension Hypothyroidism Metastatic lung cancer (metastasis from lung to other site) lung, bone, liver *CHEMO ENDED 3 WEEKS AGO (PRIMARY LUNG CANCER) On home oxygen therapy 3L O2 VIA NC continuously Surgical History History of bronchoscopy History of cataract surgery RT/LEFT History of esophagogastroduodenoscopy (EGD) History of tooth extraction History of total abdominal hysterectomy and bilateral salpingo-oophorectomy History of vascular access device left A-port in place Status post dilation of esophageal narrowing Family History Mother Family history of diabetes mellitus Other No family history of adverse response to anesthesia Denies family history of Crohn's disease Colorectal cancer Ulcerative colitis Social History Smoking Status: Former smoker Cigarettes Per Day: 5; Smoking End Date: 2011; Second Hand Exposure: No; Do You Dip or Chew Tobacco: No; Tobacco Cessation Education Requested by Patient: No Hx Alcohol Use: No Hx Substance Use: No Preferred Language: [place] Communication Ability: Effective Entry Level Account Executive Required: No Beliefs That Will Affect Care: None Current Living Situation: Alone Current Living Situation Comment: Home health comes to see patient Other Information That Helps Us Care for You: No Feels Safe at Home: Yes Safety Concerns: Feels Safe At This Time Childhood Exposure to Second-Hand Smoke: Yes caffeine: Yes during the past year weight has: other Dental Care, Regularly: Yes Physical Activity Frequency: Does not Exercise Seatbelt Use: always Assistive Devices: Cane, Oxygen - Continuous and Walker Review of Systems Review of Systems: All systems reviewed & are unremarkable except as noted in HPI & below Physical Exam Physical Exam: General: Grossly A&O. NAD. Cooperative. Elderly, frail appearing. HEENT: Atraumatic, normocephalic. EOMI. Pulm: No crackles on auscultation. Diminished diffusely. Loud expiratory rhonchi and transmitted upper airway sounds. No respiratory distress. Cardiac: RRR, -mrg. Radial pulses intact and symmetrical. 3+ BLE edema. Abdominal: Nontender, nondistended, soft. Integ: Weeping on RLE hannon. Results & Data Results & Data ([facility]) Vital Signs (Past 12 Hours) Vital Signs Temp Pulse Resp BP Pulse Ox 07/23/21 23:13 36.5 C 88 24 158/92 H 95 Intake and Output 07/23/21 07/23/21 07/24/21 14:59 22:59 06:59 Other: Weight 63 kg [facility] Weight 07/24/21 06:59 Weight 63 kg Laboratory Results wbc 20.28. Hb stable 9.2. bg pH 7.3. Na 135. K 5.2. Cr 6.39. Ca 5.1. Ical 0.63. Phos 7.9. 07/24/21 02:34 07/24/21 02:34 Cardiac Enzymes 07/24/21 Range/Units 02:34 AST 14 (13-39) U/L Coagulation 07/24/21 Range/Units 02:47 PT 10.5 (9.0-12.0) Seconds APTT 27.1 (21.0-31.0) Seconds CBC 07/24/21 Range/Units 02:34 WBC 20.28 H (4.8-10.8) K/uL RBC 2.98 L (4.2-5.4) M/uL Hgb 9.2 L (12.0-16.0) g/dL Hct 28.5 L (37-47) % Plt Count 408 H (130-400) K/uL Neut # (Auto) 18.15 H (1.4-6.5) K/uL Lymph # (Auto) 1.23 (1.2-3.4) K/uL [place] # (Auto) 0.56 (0.11-0.59) K/uL Eos # (Auto) 0.20 (0-0.5) K/uL Baso # (Auto) 0.02 (0-0.2) K/uL Comprehensive Metabolic Panel 07/24/21 Range/Units 02:34 Sodium 135 L (136-145) mmol/L Potassium 5.2 H (3.5-5.1) mmol/L Chloride 102 (98-107) mmol/L Carbon Dioxide 19 L (21-32) mmol/L BUN 84 H (6-23) mg/dl Creatinine 6.39 H* (0.6-1.2) mg/dl Glucose 89 (70-99(Fasting)) mg/dl Calcium 5.1 L* (8.5-10.1) mg/dl AST 14 (13-39) U/L ALT 10 (7-52) U/L Alkaline Phosphatase 88 (34-104) U/L Total Protein 5.9 L (6.0-8.3) gm/dl Albumin 2.8 L (3.4-5.0) gm/dl Intake and Output 07/23/21 07/23/21 07/24/21 14:59 22:59 06:59 Other: Weight 63 kg Weight Measurement Method Built in Bedscale Patient Weight 07/24/21 06:59 Weight 63 kg Diagnostic Findings cxr per my read: emphysema. Bibasilar opacities. Bilat pleural effusions, worse on L ECG Additional Comments: ecg per my read: nsr 80. low voltage. Slightly prollonged qtc 486. Normal axis. Compared to 04/16/21 ecg, no significant ST-T changes. PRWP. Code Status & VTE Plan Code Status full VTE Prophylaxis Plan VTE Prophylaxis will be ordered: Yes Supervising Physician Co-Signing Physician Notes Attending addendum: I have supervised the medical residents activities, and agree with the H&P unless as otherwise noted. Assessment and Plan: Acute kidney injury on chronic kidney disease- Creatinine 6.6 upon transfer from [facility], has been gradually increasing during June Potassium 4.9, indicated not require immediate dialysis Order renal ultrasound and duplex Urinary retention as a precipitating factor, with greater than 700 mils noted on bladder scan Straight cath as needed Send UA, and urine culture and sensitivity Hold losartan Consult nephrology Hypocalcemia and hyperphosphatemia Given 1 g calcium gluconate IV Start phosphate binder Metastatic lung cancer/COPD- DuoNebs every 4 hours as needed Continue home 3 L oxygen, with pulse ox goal 90 to 92% Remaining orders and notations as noted Resident Activity Tracking Resident Involvement: Resident Care Provided Care Provided: Adult Hospital Medicine
[2021-07-24] MEDS ORDERED: POLYETHYLENE (MIRALAX) 17 GM PACK PO PRN (01:38)
[2021-07-24] MEDS ORDERED: ONDANSETRON INJ 2 MG/ML 2 ML VIAL IV PRN (01:38)
[2021-07-24] MEDS ORDERED: ALBUT/IPRATROP 3MG/0.5MG NEB 3 ML VIAL NEB STA (01:45)
[2021-07-24 02:39] LABS: Basophils # (auto) 0.02 K/uL (0-0.2); Basophils % (auto) 0.1 %; Hematocrit (blood only) 28.5 % (37-47); Hemoglobin 9.2 g/dL (12.0-16.0); Immature Granulocytes # (auto) 0.12 K/uL (0.00-0.02); Immature Granulocytes % (auto) 0.6 %; Lymphocytes # (auto) 1.23 K/uL (1.2-3.4); Lymphocytes % (auto) 6.1 %; Mean Corpuscular Hemoglobin 30.9 pg (25-34); Mean Corpuscular Hgb Conc 32.3 g/dL (32-36); Mean Corpuscular Volume 95.6 fL (80-100); Mean Platelet Volume 8.9 fL (7.4-10.4); Monocytes # (auto) 0.56 K/uL (0.11-0.59); Monocytes % (auto) 2.8 %; Neutrophils # (auto) 18.15 K/uL (1.4-6.5); Neutrophils % (auto) 89.4 %; Platelet Count 408 K/uL (130-400); RDW Coefficient of Variation 17.5 % (11.5-14.5); RDW Standard Deviation 61.7 fL (36.4-46.3); Red Blood Count 2.98 M/uL (4.2-5.4); White Blood Count 20.28 K/uL (4.8-10.8)
[2021-07-24 03:06] LABS: Polychromasia 1+
[2021-07-24 03:09] LABS: Partial Thromboplastin Time 27.1 Seconds (21.0-31.0); Prothrombin Time 10.5 Seconds (9.0-12.0)
[2021-07-24 03:12] LABS: Albumin Globulin Ratio 0.9 (0.9-2); Albumin Level 2.8 gm/dl (3.4-5.0); BUN Creatinine Ratio 13.1 (10-20); Bilirubin,Total 0.2 mg/dl (0.2-1.0); Calcium 5.1 mg/dl (8.5-10.1); Creatinine Clr Calc Pharmacy 8.2 ml/min; Est GFR (African American) 7.3 ml/min; Est GFR (Non-African American) 6.3 ml/min; Globulin 3.1 gm/dl (2.5-4.0); Magnesium 1.9 mg/dl (1.7-2.4); Phosphorus 7.9 mg/dl (2.5-4.9); Potassium 5.2 mmol/L (3.5-5.1); Total Protein 5.9 gm/dl (6.0-8.3)
[2021-07-24] MEDS ORDERED: STAT IV STA ×2 (03:23→09:05)
[2021-07-24] MEDS ORDERED: CALCIUM GLUCONATE 10% 1,000 MG in DEXTROSE 5% 50 ML IV ONE ×2 (03:23→09:05)
[2021-07-24 03:52] LABS: Thyroid Stimulating Hormone 16.829 uIu/ml (0.300-4.500)
[2021-07-24 04:23] LABS: T4 Free Thyroxine 0.95 ng/dl (0.61-1.60)
[2021-07-24 04:45] LABS: Appearance Urine Clear (Clear); Bacteria Urine Automated Negative (Negative); Bilirubin Urine Negative (Negative); Blood Urine Negative (Negative); Cast Urine Automated 0 /lpf (0-5); Color Urine Yellow; Glucose Urine UA Negative (Negative); Ketones Urine Negative (Negative); Leukocyte Esterase Urine Negative (Negative); Nitrite Urine Negative (Negative); Protein Urine 1+ (Negative); RBC Urine Automated 0-4 /hpf (0-4); Specific Gravity Urine 1.013 (1.000-1.030); Urobilinogen Urine Negative (Negative)
[2021-07-24 04:51] LABS: Base Excess VBG -5.4 mEq/L; Oxygen Saturation VBG 78.6 %; pH VBG 7.3 (7.36-7.41)
[2021-07-24] MEDS: CALCIUM ACETATE 667 MG CAP/TAB PO SCH ×4 (05:03→16:28)
[2021-07-24] MEDS: LEVOTHYROXINE SODIUM 150 MCG TABLET PO SCH (05:04)
[2021-07-24] MEDS: HEPARIN SOD 5,000 UNIT/0.5 ML VIAL SQ SCH ×3 (05:05→22:21)
--- NOTE | 2021-07-24 07:19 | XRay Report ---
XR chest 2V PA/lateral CLINICAL HISTORY: assess for hypervolemia. Evaluate cardiopulmonary status COMPARISON STUDY: 04/18/2021 TECHNIQUE: 2 views of the chest FINDINGS: Frontal and lateral radiographs of the chest demonstrate the cardiomediastinal silhouette to be withi n normal limits. There is again evidence for underlying COPD. The lungs are clear of alveolar opaciti es. However, there has been interval development of bilateral pleural effusions, left greater than ri ght. Pleural fluid is seen within the fissure on the right as well. There is associated left basilar atelectasis. There is no evidence for vascular congestion. Sclerotic bone metastases are again seen. There is no acute osseous pathology. IMPRESSION: 1. Interval development of bilateral pleural effusions, left greater than right with compressive atel ectasis at the left lung base. 2. Underlying COPD. 3. Diffuse blastic metastases. ACT 112: Negative or not required by law. Electronically signed by: Ambrocio Cedillo M.D. 07/24/2021 7:18 AM
--- NOTE | 2021-07-24 07:51 | Ultrasound Report ---
US duplex renal artery HISTORY: 65 years-old Female severe KACEY acute kidney injury COMPARISON: Renal ultrasound of same day, CT abdomen and pelvis 04/16/2021. TECHNIQUE: Multiple real-time sonographic images of the renal vascular structures were obtained asses sing grayscale appearance, color and spectral flow FINDINGS: Diffusely heterogeneous appearance of the liver with marginal nodularity suggestive of pseudocirrhosi s. Trace ascites. Known hepatic metastasis are not well evaluated on this study. Peak systolic velocities within the right renal artery measure up to 62.4 cm/s proximally. Resistive indices within the arcuate branches measure up to 0.63. Patent right renal vein. There is normal plug flow within the abdominal aorta with peak systolic velocities measuring up to 43 cm/s. The left kidney is obscured by bowel gas. IMPRESSION: 1. No evidence of right sided renal artery stenosis. 2. The left kidney is obscured by bowel gas. 3. Hepatic metastasis with suggested pseudocirrhosis and trace ascites. ACT 112: Negative or not required by law. The above report was generated using voice recognition software. It may contain grammatical, syntax o r spelling errors. Electronically signed by: Grupo Ames M.D. 07/24/2021 7:49 AM
[2021-07-24] MEDS: amLODIPine BESYLATE 5 MG TAB PO SCH (08:16)
[2021-07-24] MEDS: predniSONE 10 MG TABLET PO SCH (08:17)
[2021-07-24] MEDS: UMECLIDINIUM/VILANTEROL 62.5/25MCG 7 PUFFS/INHALER INH SCH (08:17)
--- NOTE | 2021-07-24 08:32 | Ultrasound Report ---
US renal/blad retro comp CLINICAL HISTORY: severe KACEY. COMPARISON: CT of the abdomen and pelvis from 04/16/2021 TECHNIQUE: Multiple grayscale and color images of the kidneys and bladder. FINDINGS: This is a limited examination as patient was unable to lie flat or hold her breath. Promine nt bowel gas was also present. Right kidney: The right kidney is normal in size with increased echogenicity present. There is promin ence of the renal pelvis and collecting system. There is no evidence for renal calculus or hydronephr osis. There is evidence for a cyst with septations measuring 3.8 x 3.7 x 3.7 cm. Minimal calcificatio n is seen within its wall. There is no evidence for solid renal mass. Findings are characteristic of medical renal disease. The kidney measures 10.0 x 4.9 x 5.1 cm. Left kidney: There is limited evaluation of left kidney due to the limitations described above. Left kidney is atrophic with increased echogenicity present. There is no definite evidence for renal calcu marlena or hydronephrosis. There is no definite evidence for solid renal mass. Findings are characteristi c of medical renal disease. The kidney measures 7.8 cm in greatest length. Bladder: Limited images of the bladder demonstrate no gross abnormality. Bilateral ureteral jets are present. IMPRESSION: 1. Ultrasound findings characteristic of medical renal disease with asymmetric atrophy of the left ki dney when compared to the right. 2. The study is limited as described above. ACT 112: Negative or not required by law. Electronically signed by: Ambrocio Cedillo M.D. 07/24/2021 8:30 AM
[2021-07-24] MEDS ORDERED: NORMOSOL-R 500 ML IV ONE (09:51)
[2021-07-24] MEDS: ALBUT/IPRATROP 3MG/0.5MG NEB 3 ML VIAL NEB PRN (10:00)
--- NOTE | 2021-07-24 10:09 | Nephrology Consultation ---
Date of Consultation July 24, 2021 Assessment & Plan (1) Hyperphosphatemia: (2) Hypocalcemia: (3) Acute urinary retention: (4) Acute kidney injury superimposed on CKD: (5) Hypothyroidism: (6) Anemia: (7) Hypertension: (8) Metastatic lung cancer (metastasis from lung to other site): Advanced kidney dysfunction. Many findings consistent with CKD. Prognosis is unfortunately guarded. Imaging reviewed. Urine acellular. No hydronephrosis. Valle to be placed for urinary retention and to monitor I/O's. Clinical presentation notable for R sided CHF with suspected underlying pulmonary hypertension. IV fluid bolus will be provided to encourage urine output. Emily otherwise appears notably intravascularly dry. PO intake has been very poor. She has failure to thrive and notable cachexia. Overall, goals of care need to be addressed. Palliative care consultation and continued consultation with oncology would be appreciated in this regard. Due to frailty and the advanced nature of her malignancy and lung disease, she is a very poor candidate for dialysis and unfortunately I would not expect significant benefit in terms of quality of life of life expectancy with HD. For now, Valle catheter has been requested in additional to IVF bolus. I/O's monitored with repeat labs this afternoon. For hypocalcemia, calcitriol was added. Renal dietary restrictions have been requested for potassium and phosphorus. Start TUMS AC. History of Present Illness Reason for Consultation: KACEY Requesting Physician: Drew Banegas Attending Physician: Drew Banegas History of Present Illness Emily Benavidez is a 65 year-old female with advanced metastatic non-small cell lung cancer. She has been maintained on salvage chemotherapy with carbo/taxol. [facility]. Records from Dr. Marcano, most recently from June were reviewed today which indicate that Emily had discussed a trial of palliative therapy to slow disease progression with consideration to transition to hospice care if burden of disease were to progress. Throughout the month of June, progressive worsening of kidney function has been documented with serum creatinine progressing from 2.7 to 3.6 to 4.13 (07/04/21) mg/dL. Creatinine in April 2021 had been 1.5 mg/dL. Emily has never been previously evaluated by a grand jury deputy sheriff. She was not aware of the advanced nature of her kidney dysfunction. She presented to the ER at [facility] yesterday with fatigue and generalized weakness. Her appetite has been very poor and she has been struggling with progressive dysphagia. An EGD had been scheduled in mid June but canceled on the day of the procedure due to concerns related to her dentition. Emily notes that despite very limited PO intake she has experienced progressive BL LE edema. Swelling in her feet is limiting her ability to walk. She describes a very sedentary lifestyle and states that she spends most of her time in bed and only walking short distances within her home. She lives in [place] with her sister. She knows very little about dialysis but stated that she would consider treatments if they would make her better. We spoke about concerns related to frailty and overall disease progression and she expressed understanding. She states that she has voided very little over the past several days and it has been harder for her to empty her bladder. She believes there is an obstructive component to her kidney dysfunction. Emily was straight cathed for ~750 ml this AM. UA is notable for +1 protein. Urine microscopy acellular. Renal US demonstrated no hydronephrosis. R kidney is 10 cm with a 3.8 cm cyst with septations and minimal calcifications. The left kidney is asymmetrically atrophic at 7.8 cm. Renal duplex was attempted but the left kidney was not visualized well due to overlying bowel gas. Emily has not voided since her catheterization. She denies the urge to void. Bladder scan revealed 400 ml in the bladder at this time. Medical history is notable for a significant past smoking history and advanced COPD requiring O2. In late 2018, she was diagnosed with diffusely metastatic non-small cell lung cancer with a lesion in the RUL, diffuse lymphatic mets, liver mets, and bone mets throughout the T and L spine. Osimertinib was started in February 2019 and stopped in July 2019 due to disease progression. Salvage therapy was then started with Taxotere and gemcitabine. Emily then remained on single agent gemcitabine through March 2021. Subsequently therapy with cabo/taxol was started. She states that her last treatment was 2 weeks ago, she has been progressively fatigued and weak since therapy. She also has a history of hypothyroidism. TSH currently 16+. She is treated for hypertension with losartan and amlodipine. She is on chronic prednisone 10 mg daily. Allergies Allergy/AdvReac Type Severity Reaction Status Date / Time red dye Allergy Mild LIGHTHEADED Verified 06/24/21 09:54 No Known Drug Allergies Allergy Verified 06/24/21 09:54 Home Medications Medication Instructions Recorded Confirmed Type folic acid 1 mg tablet 1 mg PO QAM 10/22/18 07/24/21 History potassium chloride 20 mEq 20 meq PO QAM 10/22/18 07/24/21 History tablet,extended release(part/cryst) prednisone 10 mg tablet 10 mg PO QAM 10/22/18 07/24/21 History fluticasone propionate 50 1 spray INTRANASAL BID 02/14/19 07/24/21 History mcg/actuation nasal spray,suspension (Flonase Allergy Relief) losartan 100 mg tablet 100 mg PO QAM 10/12/19 07/24/21 History ondansetron HCl 8 mg tablet 8 mg PO Q8H PRN 04/16/21 07/24/21 History oxycodone 5 mg tablet 5 mg PO Q8H PRN 04/16/21 07/24/21 History albuterol sulfate 90 mcg/actuation 1 inh INHALATION QID PRN 06/13/21 07/24/21 History aerosol inhaler pantoprazole 40 mg tablet,delayed 40 mg PO QAM 06/13/21 07/24/21 History release umeclidinium 62.5 mcg-vilanterol 1 ea INHALATION QAM 06/13/21 07/24/21 History 25 mcg/actuation powdr for inhalation (Anoro Ellipta) amlodipine 10 mg tablet 10 mg PO DAILY 07/05/21 07/24/21 History benzonatate 100 mg capsule 100 mg PO QAM 07/24/21 07/24/21 History levothyroxine 125 mcg tablet 175 mcg PO QAM 07/24/21 07/24/21 History prochlorperazine maleate 10 mg 10 mg PO BID PRN 07/24/21 07/24/21 History tablet roflumilast 500 mcg tablet 500 mcg PO QPM 07/24/21 07/24/21 History (Daliresp) tiotropium bromide 2.5 2 puff INHALATION QID 07/24/21 07/24/21 History mcg/actuation mist for inhalation (Spiriva Respimat) Patient History Medical History (Updated 07/24/21 @ 03:33 by Girish Salcido MD) COPD (chronic obstructive pulmonary disease) Dysphagia HX ESOPHAGEAL STRETCHING GERD (gastroesophageal reflux disease) Hypertension Hypothyroidism Metastatic lung cancer (metastasis from lung to other site) lung, bone, liver *CHEMO ENDED 3 WEEKS AGO (PRIMARY LUNG CANCER) On home oxygen therapy 3L O2 VIA NC continuously Surgical History History of bronchoscopy History of cataract surgery RT/LEFT History of esophagogastroduodenoscopy (EGD) History of tooth extraction History of total abdominal hysterectomy and bilateral salpingo-oophorectomy History of vascular access device left A-port in place Status post dilation of esophageal narrowing Family History Mother Family history of diabetes mellitus Other No family history of adverse response to anesthesia Denies family history of Crohn's disease Colorectal cancer Ulcerative colitis Social History Smoking Status: Former smoker Cigarettes Per Day: 5; Smoking End Date: 2011; Second Hand Exposure: No; Do You Dip or Chew Tobacco: No; Tobacco Cessation Education Requested by Patient: No Hx Alcohol Use: No Hx Substance Use: No Preferred Language: Yakut Communication Ability: Effective Metal Control Worker Required: No Beliefs That Will Affect Care: None Current Living Situation: Alone Current Living Situation Comment: Home health comes to see patient Other Information That Helps Us Care for You: No Feels Safe at Home: Yes Safety Concerns: Feels Safe At This Time Childhood Exposure to Second-Hand Smoke: Yes caffeine: Yes during the past year weight has: other Dental Care, Regularly: Yes Physical Activity Frequency: Does not Exercise Seatbelt Use: always Assistive Devices: Glasses, Oxygen - at Night and Oxygen - Continuous Review of Systems Constitutional: + fatigue, + weakness, + anorexia and + weight loss; no fever and no chills Eyes: + dry eyes Ear, Nose, Mouth, Throat: + hearing loss, + dry mouth and + dysphagia Respiratory: + cough and + dyspnea Cardiovascular: + edema; no chest pain, no orthopnea and no palpitations Gastrointestinal: + early satiety and + dysphagia; no nausea, no vomiting and no change in bowel habits Genitourinary: + difficulty urinating and + urinary hesitancy; no dysuria, no urinary frequency and no hematuria Musculoskeletal: + joint pain, + stiffness, + myalgia and + muscle weakness Integumentary: + unusual bruising; no rash Neurologic: + unsteadiness; no falls Psychiatric: no depression and no hopelessness Endocrine: no problem reported Hematologic / Lymphatic: + easy bruising Physical Exam Constitutional: + ill appearing, + cachectic and + frail appearing Eyes: + anicteric sclerae; no corneal abnormality ENMT: Mouth: + dry oral mucous membranes and + poor dentition Neck: trachea midline Thyroid: no thyromegaly Respiratory: + tachypneic; no labored breathing and does not use accessory muscles Auscultation: lungs clear to auscultation bilaterally and + rales Cardiovascular: Rate/Rhythm: regular rate Heart Sounds: normal S1, normal S2 and + murmur Vessels: + JVD Extremities: + edema Gastrointestinal (Abdomen): Percussion/Palpation: abdomen soft; abdomen nontender Musculoskeletal: Extremities: no cyanosis and no clubbing Skin: + turgor decreased and + dry skin Neurologic: awake; not confused Psychiatric: Orientation: alert and oriented x 3 Results & Data ([facility]) Vital Signs (Past 12 Hours) Vital Signs Temp Pulse Pulse Resp BP Pulse Ox 07/24/21 10:00 86 20 91 07/24/21 07:37 36.3 C L 86 16 154/92 H 94 07/24/21 07:23 78 07/24/21 04:32 36.4 C L 80 18 163/92 H 98 07/24/21 02:24 88 18 94 07/23/21 23:34 96 H 07/23/21 23:13 36.5 C 88 24 158/92 H 95 Laboratory Results Laboratory Results - last 24 hr 07/24/21 07/24/21 07/24/21 00:15 02:34 02:34 WBC 20.28 H RBC 2.98 L Hgb 9.2 L Hct 28.5 L MCV 95.6 MCH 30.9 MCHC 32.3 RDW Std Deviation 61.7 H RDW Coeff of Maxi 17.5 H Plt Count 408 H MPV 8.9 Immature Gran % (Auto) 0.6 Neut % (Auto) 89.4 Lymph % (Auto) 6.1 Douglas % (Auto) 2.8 Eos % (Auto) 1.0 Baso % (Auto) 0.1 Neut # (Auto) 18.15 H Lymph # (Auto) 1.23 Douglas # (Auto) 0.56 Eos # (Auto) 0.20 Baso # (Auto) 0.02 Immature Gran # (Auto) 0.12 H Hypersegmented Neuts 1+ Polychromasia 1+ PT INR APTT PTT Ratio VBG pH VBG pCO2 VBG pO2 VBG HCO3 VBG O2 Saturation VBG Base Excess Barometric Pressure Sodium 135 L Potassium 5.2 H Chloride 102 Carbon Dioxide 19 L Anion Gap 14 H BUN 84 H Creatinine 6.39 H* Est Cr Clr Drug Dosing 8.2 Est GFR ( Amer) 7.3 Est GFR (Non-Af Amer) 6.3 BUN/Creatinine Ratio 13.1 Glucose 89 Osmolality Calcium 5.1 L* Ionized Calcium Phosphorus 7.9 H Magnesium 1.9 Total Bilirubin 0.2 AST 14 ALT 10 Alkaline Phosphatase 88 Total Protein 5.9 L Albumin 2.8 L Globulin 3.1 Albumin/Globulin Ratio 0.9 TSH Free T4 Urine Color Urine Appearance Urine pH Ur Specific Latta Urine Protein Urine Glucose (UA) Urine Ketones Urine Blood Urine Nitrite Urine Bilirubin Urine Urobilinogen Ur Leukocyte Esterase Urine WBC (Auto) Urine RBC (Auto) U Hyaline Cast (Auto) U Epithel Cells (Auto) Urine Bacteria (Auto) Urine Osmolality Ur Random Creatinine Ur Random Sodium Nasal Screen MRSA (PCR) Uninterpretable Hepatitis C Ab (EIA) Hep C Ab Signal/Cutoff 07/24/21 07/24/21 07/24/21 02:34 02:34 02:34 WBC RBC Hgb Hct MCV MCH MCHC RDW Std Deviation RDW Coeff of Maxi Plt Count MPV Immature Gran % (Auto) Neut % (Auto) Lymph % (Auto) Douglas % (Auto) Eos % (Auto) Baso % (Auto) Neut # (Auto) Lymph # (Auto) Douglas # (Auto) Eos # (Auto) Baso # (Auto) Immature Gran # (Auto) Hypersegmented Neuts Polychromasia PT INR APTT PTT Ratio VBG pH Cancelled VBG pCO2 Cancelled VBG pO2 Cancelled VBG HCO3 Cancelled VBG O2 Saturation Cancelled VBG Base Excess Cancelled Barometric Pressure Cancelled Sodium Potassium Chloride Carbon Dioxide Anion Gap BUN Creatinine Est Cr Clr Drug Dosing Est GFR ( Amer) Est GFR (Non-Af Amer) BUN/Creatinine Ratio Glucose Osmolality 307 H Calcium Ionized Calcium Phosphorus Magnesium Total Bilirubin AST ALT Alkaline Phosphatase Total Protein Albumin Globulin Albumin/Globulin Ratio TSH 16.829 H Free T4 0.95 Urine Color Urine Appearance Urine pH Ur Specific Latta Urine Protein Urine Glucose (UA) Urine Ketones Urine Blood Urine Nitrite Urine Bilirubin Urine Urobilinogen Ur Leukocyte Esterase Urine WBC (Auto) Urine RBC (Auto) U Hyaline Cast (Auto) U Epithel Cells (Auto) Urine Bacteria (Auto) Urine Osmolality Ur Random Creatinine Ur Random Sodium Nasal Screen MRSA (PCR) Hepatitis C Ab (EIA) Hep C Ab Signal/Cutoff 07/24/21 07/24/21 07/24/21 02:47 02:49 04:30 WBC RBC Hgb Hct MCV MCH MCHC RDW Std Deviation RDW Coeff of Maxi Plt Count MPV Immature Gran % (Auto) Neut % (Auto) Lymph % (Auto) Douglas % (Auto) Eos % (Auto) Baso % (Auto) Neut # (Auto) Lymph # (Auto) Douglas # (Auto) Eos # (Auto) Baso # (Auto) Immature Gran # (Auto) Hypersegmented Neuts Polychromasia PT 10.5 INR 1.0 APTT 27.1 PTT Ratio 1.0 VBG pH VBG pCO2 VBG pO2 VBG HCO3 VBG O2 Saturation VBG Base Excess Barometric Pressure Sodium Potassium Chloride Carbon Dioxide Anion Gap BUN Creatinine Est Cr Clr Drug Dosing Est GFR ( Amer) Est GFR (Non-Af Amer) BUN/Creatinine Ratio Glucose Osmolality Calcium Ionized Calcium Phosphorus Magnesium Total Bilirubin AST ALT Alkaline Phosphatase Total Protein Albumin Globulin Albumin/Globulin Ratio TSH Free T4 Urine Color Yellow Urine Appearance Clear Urine pH 5.0 Ur Specific Latta 1.013 Urine Protein 1+ H Urine Glucose (UA) Negative Urine Ketones Negative Urine Blood Negative Urine Nitrite Negative Urine Bilirubin Negative Urine Urobilinogen Negative Ur Leukocyte Esterase Negative Urine WBC (Auto) 1-5 Urine RBC (Auto) 0-4 U Hyaline Cast (Auto) 0 U Epithel Cells (Auto) 5-10 H Urine Bacteria (Auto) Negative Urine Osmolality Ur Random Creatinine Ur Random Sodium Nasal Screen MRSA (PCR) Hepatitis C Ab (EIA) Pending Hep C Ab Signal/Cutoff Pending 07/24/21 07/24/21 07/24/21 04:30 04:30 04:42 WBC RBC Hgb Hct MCV MCH MCHC RDW Std Deviation RDW Coeff of Maxi Plt Count MPV Immature Gran % (Auto) Neut % (Auto) Lymph % (Auto) Douglas % (Auto) Eos % (Auto) Baso % (Auto) Neut # (Auto) Lymph # (Auto) Douglas # (Auto) Eos # (Auto) Baso # (Auto) Immature Gran # (Auto) Hypersegmented Neuts Polychromasia PT INR APTT PTT Ratio VBG pH 7.30 L VBG pCO2 44 VBG pO2 50 VBG HCO3 21 VBG O2 Saturation 78.6 VBG Base Excess -5.4 Barometric Pressure 732.1 Sodium Potassium Chloride Carbon Dioxide Anion Gap BUN Creatinine Est Cr Clr Drug Dosing Est GFR ( Amer) Est GFR (Non-Af Amer) BUN/Creatinine Ratio Glucose Osmolality Calcium Ionized Calcium Phosphorus Magnesium Total Bilirubin AST ALT Alkaline Phosphatase Total Protein Albumin Globulin Albumin/Globulin Ratio TSH Free T4 Urine Color Urine Appearance Urine pH Ur Specific Latta Urine Protein Urine Glucose (UA) Urine Ketones Urine Blood Urine Nitrite Urine Bilirubin Urine Urobilinogen Ur Leukocyte Esterase Urine WBC (Auto) Urine RBC (Auto) U Hyaline Cast (Auto) U Epithel Cells (Auto) Urine Bacteria (Auto) Urine Osmolality 323 L Ur Random Creatinine 57.0 Ur Random Sodium 24 Nasal Screen MRSA (PCR) Hepatitis C Ab (EIA) Hep C Ab Signal/Cutoff 07/24/21 04:42 WBC RBC Hgb Hct MCV MCH MCHC RDW Std Deviation RDW Coeff of Maxi Plt Count MPV Immature Gran % (Auto) Neut % (Auto) Lymph % (Auto) Douglas % (Auto) Eos % (Auto) Baso % (Auto) Neut # (Auto) Lymph # (Auto) Douglas # (Auto) Eos # (Auto) Baso # (Auto) Immature Gran # (Auto) Hypersegmented Neuts Polychromasia PT INR APTT PTT Ratio VBG pH VBG pCO2 VBG pO2 VBG HCO3 VBG O2 Saturation VBG Base Excess Barometric Pressure Sodium Potassium Chloride Carbon Dioxide Anion Gap BUN Creatinine Est Cr Clr Drug Dosing Est GFR ( Amer) Est GFR (Non-Af Amer) BUN/Creatinine Ratio Glucose Osmolality Calcium Ionized Calcium 0.63 L* Phosphorus Magnesium Total Bilirubin AST ALT Alkaline Phosphatase Total Protein Albumin Globulin Albumin/Globulin Ratio TSH Free T4 Urine Color Urine Appearance Urine pH Ur Specific Latta Urine Protein Urine Glucose (UA) Urine Ketones Urine Blood Urine Nitrite Urine Bilirubin Urine Urobilinogen Ur Leukocyte Esterase Urine WBC (Auto) Urine RBC (Auto) U Hyaline Cast (Auto) U Epithel Cells (Auto) Urine Bacteria (Auto) Urine Osmolality Ur Random Creatinine Ur Random Sodium Nasal Screen MRSA (PCR) Hepatitis C Ab (EIA) Hep C Ab Signal/Cutoff PG Care Time/CCT Total # of Minutes Spent Total Time Spent: 60 Total Time Spent with Patient: Total time spent is greater than 50% in coordination of care (as documented) at patient's floor/unit and/or counseling patient: Coding Level of Care Code 50348 Inpt Consult Level 5 Diagnoses Hyperphosphatemia E83.39 Hypocalcemia E83.51 Acute urinary retention R33.8 Acute kidney injury superimposed on CKD N17.9; N18.9 Hypothyroidism E03.9 Anemia D64.9 Anemia type: unspecified type Hypertension I10 Metastatic lung cancer (metastasis from lung to other site) C34.90 (1) Anemia Anemia type: unspecified type Qualified Code(s): D64.9 - Anemia, unspecified
[2021-07-24] MEDS: CALCIUM CARBONATE 500 MG CHEWABLE TAB PO SCH ×2 (12:23→16:28)
--- NOTE | 2021-07-24 13:37 | Urology Consultation ---
Date of Consultation July 24, 2021 Assessment & Plan (1) Acute urinary retention: (2) Acute kidney injury superimposed on CKD: 65 yo F with multiple comorbidities including metastatic lung cancer on chemotherapy presented to [facility] as a direct admit from [facility] for consideration of dialysis due to progressive worsening of kidney function. - Urology consulted for difficult Valle placement. - Pt afebrile, creatinine remains elevated at 6.39, repeat pending - continue to trend. - Nephrology consult reviewed - patient felt to be a poor candidate for HD. Valle catheter was recommended for I/Os and urinary retention. - EFRAIN shows mild prominence of right renal pelvis and collecting system. Can consider a CT for further evaluation. - A 16 F catheter was placed using aseptic technique. Patient tolerated procedure. Valle intact, patent and draining clear yellow after insertion. - Continue supportive care and management per primary service and nephrology. - will sign off, please contact our service for any additional questions or concerns. - See attending physician note for further details. Supervising Physician Co-Signing Physician Notes Discussed patient with JOAN. Agree with plan. Suspect KACEY is intrinsic based on FeNa being 2%. Renal ultrasound did show some dilatation of the right side. If kidney function does not improve with Valle catheter placement, recommend getting cross-sectional imaging with a CT scan to evaluate for any obvious obstruction. History of Present Illness Reason for Consultation: Need for Valle placement Requesting Physician: Dr. Banegas Attending Physician: Drew Banegas History of Present Illness 65 yo F with past medical history significant for metastatic lung cancer on chemotherapy, COPD on supplemental oxygen, hypertension, GERD, hypothyroidism, anasarca, esophageal dysphagia presented to [facility] as a direct admit from [facility] due to progressive worsening of kidney function with creatinine of 6.6 at outside hospital. She presented to [facility] ED with several day history of fatigue, generalized weakness, edema, and worsening cough/dyspnea. She was treated with IV Calcium and Ceftriaxone at outside facility and then transferred to [facility] for consideration of dialysis due to creatinine of 6.6. Lab work on arrival reviewed and showed leukocytosis of 20.28, Hgb 9.2, Plt 408, sodium 135, K 5.2, creatinine 6.39, calcium 5.1, phosphorus 7.9, and TSH 16.829. Urinalysis on admission showed 1+ protein, 1-5 WBC, 0-4 RBCs, 5-10 epithelials. She was admitted to the hospital medicine service. Nephrology consulted and following. Urology consulted for Valle catheter placement. EFRAIN reviewed and showed findings consistent with medical renal disease with asymmetric atrophy of the left kidney when compared to the right; a right renal cyst is noted as well as prominence of the right renal pelvis and collecting system. US Duplex renal artery showed no evidence of right sided renal artery stenosis, left kidney obscured by bowel gas. Per chart review, patient was straight catheterized for 960 mL at 0430, has been unable to void since. Bladder scanned for 420 mL this morning. Nursing attempted Valle catheter placement x 3 unsuccessfully. Patient seen and examined at bedside. She is awake, alert and resting in bed. Denies abdominal discomfort, but notes some mild bladder pressure. Has not voided since straight cath, denies urge. No dysuria or hematuria. No nausea or vomiting. No fever or chills. Offers no additional complaints at present. Her past medical/social, surgical and family history reviewed. Allergies Allergy/AdvReac Type Severity Reaction Status Date / Time red dye Allergy Mild LIGHTHEADED Verified 06/24/21 09:54 No Known Drug Allergies Allergy Verified 06/24/21 09:54 Home Medications Medication Instructions Recorded Confirmed Type folic acid 1 mg tablet 1 mg PO QAM 10/22/18 07/24/21 History potassium chloride 20 mEq 20 meq PO QAM 10/22/18 07/24/21 History tablet,extended release(part/cryst) prednisone 10 mg tablet 10 mg PO QAM 10/22/18 07/24/21 History fluticasone propionate 50 1 spray INTRANASAL BID 02/14/19 07/24/21 History mcg/actuation nasal spray,suspension (Flonase Allergy Relief) losartan 100 mg tablet 100 mg PO QAM 10/12/19 07/24/21 History ondansetron HCl 8 mg tablet 8 mg PO Q8H PRN 04/16/21 07/24/21 History oxycodone 5 mg tablet 5 mg PO Q8H PRN 04/16/21 07/24/21 History albuterol sulfate 90 mcg/actuation 1 inh INHALATION QID PRN 06/13/21 07/24/21 History aerosol inhaler pantoprazole 40 mg tablet,delayed 40 mg PO QAM 06/13/21 07/24/21 History release umeclidinium 62.5 mcg-vilanterol 1 ea INHALATION QAM 06/13/21 07/24/21 History 25 mcg/actuation powdr for inhalation (Anoro Ellipta) amlodipine 10 mg tablet 10 mg PO DAILY 07/05/21 07/24/21 History benzonatate 100 mg capsule 100 mg PO QAM 07/24/21 07/24/21 History levothyroxine 125 mcg tablet 175 mcg PO QAM 07/24/21 07/24/21 History prochlorperazine maleate 10 mg 10 mg PO BID PRN 07/24/21 07/24/21 History tablet roflumilast 500 mcg tablet 500 mcg PO QPM 07/24/21 07/24/21 History (Daliresp) tiotropium bromide 2.5 2 puff INHALATION QID 07/24/21 07/24/21 History mcg/actuation mist for inhalation (Spiriva Respimat) Patient History Medical History COPD (chronic obstructive pulmonary disease) Dysphagia HX ESOPHAGEAL STRETCHING GERD (gastroesophageal reflux disease) Hypertension Hypothyroidism Metastatic lung cancer (metastasis from lung to other site) lung, bone, liver *CHEMO ENDED 3 WEEKS AGO (PRIMARY LUNG CANCER) On home oxygen therapy 3L O2 VIA NC continuously Surgical History History of bronchoscopy History of cataract surgery RT/LEFT History of esophagogastroduodenoscopy (EGD) History of tooth extraction History of total abdominal hysterectomy and bilateral salpingo-oophorectomy History of vascular access device left A-port in place Status post dilation of esophageal narrowing Family History Mother Family history of diabetes mellitus Other No family history of adverse response to anesthesia Denies family history of Crohn's disease Colorectal cancer Ulcerative colitis Social History Smoking Status: Former smoker Cigarettes Per Day: 5; Smoking End Date: 2011; Second Hand Exposure: No; Do You Dip or Chew Tobacco: No; Tobacco Cessation Education Requested by Patient: No Hx Alcohol Use: No Hx Substance Use: No Preferred Language: Polish Communication Ability: Effective Ethnographer Required: No Beliefs That Will Affect Care: None Current Living Situation: Alone Current Living Situation Comment: Home health comes to see patient Other Information That Helps Us Care for You: No Feels Safe at Home: Yes Safety Concerns: Feels Safe At This Time Childhood Exposure to Second-Hand Smoke: Yes caffeine: Yes during the past year weight has: other Dental Care, Regularly: Yes Physical Activity Frequency: Does not Exercise Seatbelt Use: always Assistive Devices: Cane, Oxygen - Continuous and Walker Review of Systems Constitutional: as per Subjective / HPI Eyes: no problem reported Respiratory: + cough and + dyspnea Cardiovascular: + edema Gastrointestinal: as per Subjective / HPI Genitourinary: as per Subjective / HPI Musculoskeletal: as per Subjective / HPI Integumentary: no rash Neurologic: no problem reported Psychiatric: no problem reported Physical Exam Constitutional: + thin, + cachectic and + edematous; no acute distress chronically ill appearing Respiratory: + cough and + tachypneic; no respiratory distress Cardiovascular: Extremities: + edema Gastrointestinal (Abdomen): Inspection/Auscultation: abdomen not distended Percussion/Palpation: abdomen soft; abdomen nontender Musculoskeletal: Head/Neck/Chest: normocephalic Skin: + dry skin and + ecchymosis Neurologic: moves all extremities and awake Psychiatric: Orientation: alert and oriented x 3 Genitourinary: Labia moderately edematous. Using aseptic technique, a 16 F catheter was placed, balloon inflated with 10 mL of water. Valle catheter intact, patent and draining clear yellow urine. Results & Data ([facility]) Vital Signs (Past 12 Hours) Vital Signs Temp Pulse Pulse Resp BP Pulse Ox 07/24/21 10:59 36.4 C L 87 18 137/81 93 07/24/21 10:00 86 20 91 07/24/21 07:37 36.3 C L 86 16 154/92 H 94 07/24/21 07:23 78 07/24/21 04:32 36.4 C L 80 18 163/92 H 98 07/24/21 02:24 88 18 94 PG Care Time/CCT Total # of Minutes Spent Total Time Spent with Patient: Total time spent is greater than 50% in coordination of care (as documented) at patient's floor/unit and/or counseling patient: Coding Level of Care Code 73123 Initial Inpt Care Lvl 2 Diagnoses Acute urinary retention R33.8 Acute kidney injury superimposed on CKD N17.9; N18.9
--- NOTE | 2021-07-24 14:37 | Hospitalist Progress Note ---
Date of Service July 24, 2021 Assessment & Plan (1) Acute kidney injury superimposed on CKD: Plan: Patient had stage 3-4 CKD in late 2020/early 2021. Trend: creatinine 1.5 (04/2021) -> 2.73->3.61->4.13 (06/2021). Now 6.3 early this am. Unfortunately this appears to be significant progression of her baseline CKD. I cannot rule out that chemotherapy has contributed to renal dysfunction as she resumed chemo earlier this year (carbo/taxol per heme/onc records). Appreciate nephrology consult. Appreciate urology consult for martinez placement. There does not appear to be any significant obstructive picture (although was having some bladder retention). I agree with nephrology that HD is not a great option and would offer little to no benefit or improvement in her quality of life given her advanced, stage 4 lung ca. Agree with fluid challenge. Repeat BMP in am. Best option moving forward would be palliative care/hospice. (2) Hyperkalemia: Plan: 2nd to KACEY. Wendyssa now, repeat BMP am. STOPPED her ARB. (3) Acute urinary retention: Plan: s/p martinez placement. making good urine despite her KACEY. (4) Left arm swelling: Plan: worrisome for DVT especially in light of her left subclavian a-port. obtain doppler to r/o DVT. can't rule out SVC syndrome in light of extensive lung cancer but prior imaging did not show such. (5) Hypocalcemia: Plan: 2nd to worsening renal function. started on calcitriol + tums per nephrology. gave calcium gluconate this am due to severity of her hypocalcemia. bmp with calcium in am. (6) Hyperphosphatemia: Plan: started on phosphate binder TID w/ meals phos level am (7) Bilateral lower extremity edema: Plan: echo with preserved LV function doubt CHF contributing low albumin, decompensated hypothyroidism, etc likely all contributing consider dopplers r/o DVT not a good candidate for diuretic therapy due to #1 (8) COPD (chronic obstructive pulmonary disease): Plan: cont NC O2 3 L no flare at this time but is coughing and has wheeze add combivent 1 puff QID add robitussin 100mg QID (9) Hypertension: Plan: cont norvasc hold ARB (10) Esophageal dysphagia: Plan: noted will change diet to easy to chew (11) Generalized weakness: Plan: suspect 2nd to advanced lung ca worsening renal function failure to thrive no good options for her unfortunately (12) Metastatic lung cancer (metastasis from lung to other site): Plan: follows with Dr Marcano at [facility]. carbo/taxol chemo regimen used for salvage Rx per records. last echo 2 weeks ago. mets to liver, bone - suspect other regions as well. left-sided pleural effusion most likely malignant. VERY VERY POOR PROGNOSIS - will involve palliative care. hospice would be best option in light of stage 4 ca + KACEY/CKD. (13) Liver metastases: (14) GERD (gastroesophageal reflux disease): (15) Hypothyroidism: Plan: high TSH - due to poor compliance? need for more synthroid? will inquire with her about compliance (16) Candidiasis of mouth and esophagus: Plan: nystatin solution 5cc qid swish/spit Plan: updated pt's brother by phone this evening extensively made him aware of worsening renal function & poor prognosis overall Admission and Anticipated Discharge Date Admission Date: July 23, 2021 Subjective patient resting comfortably in bed during the visit earlier in the day a martinez was attempted to be placed by staff without success thus, urology was consulted for martinez placement and this was placed and is functioning well she reports that when her legs started to swell she also noted LUE swelling denies pain in left arm or her legs telemetry normal overnight Review of Systems Review of Systems: gen - fatigue, weakness cv - no cp pulm - dyspnea with exertion at baseline GI - no abd pain Physical Exam Physical Exam: gen - generalized muscle wasting, NAD, bronchial cough with ?inspiratory stridor type sound mouth - thrush plaques buccal mucosa neck - no JVD heart - RRR, s1 s2 lungs - decreased BS both bases worse on left, no increased work of breathing; b/l wheezes abd - distended, BS+, ?ascites vs abd wall edema/anasarca, NT ext - LUE with gross swelling most of arm; 1-2+ edema b/l legs; pulses 2+ b/l chest - port in place = no erythema psych - a/o x 3 Results & Data Results & Data ([facility]) Vital Signs (Past 12 Hours) Vital Signs Temp Pulse Pulse Resp BP Pulse Ox 07/24/21 10:59 36.4 C L 87 18 137/81 93 04/13/22 10:00 86 20 91 07/24/21 07:37 36.3 C L 86 16 154/92 H 94 07/24/21 07:23 78 07/24/21 04:32 36.4 C L 80 18 163/92 H 98 Laboratory Results Laboratory Results - last 24 hr 07/24/21 07/24/21 02:49 14:21 Sodium 132 L Potassium 5.6 H Chloride 99 Carbon Dioxide 21 Anion Gap 12 H BUN 82 H Creatinine 6.06 H* D Est Cr Clr Drug Dosing 8.7 Est GFR ( Amer) 7.8 Est GFR (Non-Af Amer) 6.7 BUN/Creatinine Ratio 13.5 Glucose 104 H Uric Acid 7.9 H Calcium 5.4 L* Phosphorus 7.6 H Magnesium 1.8 Total Creatine Kinase 126 Albumin 2.6 L Hepatitis C Ab (EIA) NON-REACTIVE Hep C Ab Signal/Cutoff 0.04 PG Care Time/CCT Total # of Minutes Spent Total Time Spent with Patient: Total time spent is greater than 50% in coordination of care (as documented) at patient's floor/unit and/or counseling patient: Coding Level of Care Code 99365 Subseq Hosp Care Lvl 3 Diagnoses Acute kidney injury superimposed on CKD N17.9; N18.9 Hypocalcemia E83.51 Hyperphosphatemia E83.39 Bilateral lower extremity edema R60.0 COPD (chronic obstructive pulmonary disease) J44.9 Hypertension I10 Esophageal dysphagia R13.10 Generalized weakness R53.1 Metastatic lung cancer (metastasis from lung to other site) C34.90 Liver metastases C78.7 GERD (gastroesophageal reflux disease) K21.9 Hypothyroidism E03.9 Acute urinary retention R33.8 Hyperkalemia E87.5 Left arm swelling M79.89 Candidiasis of mouth and esophagus B37.81; B37.0
[2021-07-24 15:10] LABS: Albumin Level 2.6 gm/dl (3.4-5.0); BUN Creatinine Ratio 13.5 (10-20); Calcium 5.4 mg/dl (8.5-10.1); Creatinine Clr Calc Pharmacy 8.7 ml/min; Est GFR (African American) 7.8 ml/min; Est GFR (Non-African American) 6.7 ml/min; Magnesium 1.8 mg/dl (1.7-2.4); Phosphorus 7.6 mg/dl (2.5-4.9); Potassium 5.6 mmol/L (3.5-5.1); Uric Acid 7.9 mg/dl (2.6-7.2)
[2021-07-24] MEDS: guaiFENesin SUGAR FREE 100 MG/5 ML UDC PO SCH ×2 (16:28→22:20)
[2021-07-24] MEDS: NYSTATIN SUSP 500,000 U/5 ML UDC PO SCH ×2 (16:28→22:17)
[2021-07-24] MEDS ORDERED: IPRATROPIUM BROMIDE/ALBUTEROL respimat INH INH SCH (17:00)
[2021-07-24] MEDS: IPRATROPIUM BROMIDE HFA INHALER INH SCH ×2 (17:12→19:30)
[2021-07-24] MEDS: ALBUTEROL HFA 8 GM INHALER INH SCH ×2 (17:12→19:30)
[2021-07-24] MEDS ORDERED: PATIROMER CALCIUM SORBITEX 8.4 GM PACK PO STA ×2 (17:13)
[2021-07-24] MEDS: allopurinoL 100 MG TAB PO SCH (18:20)
--- NOTE | 2021-07-24 19:48 | Billing Data ---
Date of Service July 24, 2021 Coding Level of Care Code 72259 Initial Inpt Care Lvl 3
--- NOTE | 2021-07-24 21:01 | XCELERA ---
[id number]
[2021-07-25] MEDS: LEVOTHYROXINE SODIUM 150 MCG TABLET PO SCH (06:07)
--- NOTE | 2021-07-25 06:07 | Electrocardiogram Report ---
Test Reason : Blood Pressure : / mmHG Vent. Rate : 080 BPM Atrial Rate : 080 BPM P-R Int : 130 ms QRS Dur : 084 ms QT Int : 422 ms P-R-T Axes : 055 028 049 degrees QTc Int : 486 ms Poor data quality, interpretation may be adversely affected Normal sinus rhythm Low voltage QRS Prolonged QT Abnormal ECG When compared with ECG of 16-APR-2021 10:20, Questionable change in initial forces of Septal leads Confirmed by Jones Zapata ([id number]) on 07/25/2021 6:06:48 AM Referred By: Randolph Billingsley Confirmed By:Jones Zapata
[2021-07-25 06:46] LABS: BUN Creatinine Ratio 13.7 (10-20); Calcium 5.6 mg/dl (8.5-10.1); Creatinine Clr Calc Pharmacy 8.6 ml/min; Est GFR (African American) 7.7 ml/min; Est GFR (Non-African American) 6.7 ml/min; Potassium 5.2 mmol/L (3.5-5.1)
[2021-07-25] MEDS: IPRATROPIUM BROMIDE HFA INHALER INH SCH ×2 (06:53→10:54)
[2021-07-25] MEDS: ALBUTEROL HFA 8 GM INHALER INH SCH ×2 (06:53→10:54)
--- NOTE | 2021-07-25 07:07 | Ultrasound Report ---
LEFT UPPER EXTREMITY VENOUS DOPPLER HISTORY: advanced lung ca; edema of LUE; port; eval DVT COMPARISON STUDY: None. FINDINGS: The left internal jugular vein is patent. There is normal flow within the left subclavian v ein. There is normal flow and compressibility within the left axillary, basilic, brachial, radial, an d ulnar veins. The cephalic vein was not identified and may have been compressed from the upper extre mity edema. IMPRESSION: No DVT within the left upper extremity. ACT 112: Negative or not required by law. Electronically signed by: Kel Cm M.D. 07/25/2021 7:05 AM
[2021-07-25] MEDS: CALCIUM CARBONATE 500 MG CHEWABLE TAB PO SCH ×2 (07:18→12:26)
[2021-07-25] MEDS: CALCIUM ACETATE 667 MG CAP/TAB PO SCH ×2 (07:18→12:26)
[2021-07-25] MEDS ORDERED: PATIROMER CALCIUM SORBITEX 8.4 GM PACK PO ONE (08:05)
--- NOTE | 2021-07-25 08:50 | Hospitalist Progress Note ---
Date of Service July 25, 2021 Assessment & Plan (1) Recurrent seizures: Plan: Although her first event today was unwitnessed I suspect she had a seizure. Prolactin level immediately following the first event was markedly elevated highly suggestive of seizure activity. Additionally, during the first event, her tele monitoring showed considerable artifact c/w severe movement from seizure activity. Her 2nd event was witnessed and was clearly generalized seizure activity. s/p keppra 500mg IV x 1 along with ativan 1mg IV x 1. no further seizure activity following the above. IV calcium gluconate x 2 grams also given for severe hypocalcemia. I suspect her seizures are a combination of hypocalcemia-induced along with brain mets. Although her CT head did not show parenchymal brain mets she has numerous calvarial mets. She is not a candidate for MRI brain to confirm metastatic disease however; thus, will simply assume she has metastatic disease. I cannot rule out a new stroke with subsequent seizure activity but this is felt to be less likely. She remains at high risk of additional seizures in light of the above. Following the chain of events this am I sat and spoke with the pt's sister as well as a cousin to the patient. See "subjective" portion of this note for details. Ultimately the patient was made DNR/DNI with transition to comfort care measures. To prevent additional seizures I will continue the keppra at 250mg IV q12h even while on comfort care. Will order IV ativan to be used prn for breakthrough seizures. (2) Acute metabolic encephalopathy: Plan: 2nd to #1 above. Additionally, worsening metabolic acidosis from her ARF/KACEY could be contributing along with uremia. Lactate wnl. Ammonia wnl. VBG without hypercarbia. No further work-up/Rx -- transitioning to comfort care measures only. (3) Acute kidney injury superimposed on CKD: Plan: Patient had stage 3-4 CKD in late 2020/early 2021. Trend: creatinine 1.5 (04/2021) -> 2.73->3.61->4.13 (06/2021). Cr remains at about 6 with ongoing acidosis & mild hyperkalemia. Unfortunately this appears to be significant progression of her baseline CKD. I cannot rule out that chemotherapy (carboplatin) has contributed to renal dysfunction as she resumed chemo earlier this year per heme/onc records. I agree wholeheartedly with nephrology that HD is not an option and would offer little to no benefit or improvement in her quality of life given her advanced, stage 4 lung ca, failure to thrive, and overall fraility (as well as today's e vents). Transitioning to comfort care. (4) Metastatic lung cancer (metastasis from lung to other site): Plan: had been followed by Dr Mir Marcano at [facility]. carbo/taxol chemo regimen used for salvage Rx per records recently. [facility] had suggested this regimen vs hospice. last chemo 2 weeks ago. during palliative care talks with sister today the patient recently told the family that she was not going to pursue additional chemo. over the last 3 weeks the sister states that Emily was miserable with intractable nausea, no appetite, unable to do her usual activities, etc. finally, office note from Dr Marcano from late June stated that if Emily experienced toxic effects from chemo or she had lack of response to chemo she would stop chemo and transition to hospice. Her sister told me today that she was at that office visit and she confirmed that Emily indeed was agreeable to that plan. (5) Hyperkalemia: Plan: 2nd to KACEY. ongoing. see above. (6) Acute urinary retention: Plan: s/p martinez placement. cont martinez for comfort. (7) Left arm swelling: Plan: doppler neg for DVT, LUE. (8) Hypocalcemia: Plan: 2nd to worsening renal function. started on calcitriol + tums per nephrology. gave calcium gluconate x 2 grams this am due to #1. no further Rx or recheck of calcium level --> transition to comfort care status. (9) Hyperphosphatemia: Plan: stop phos binders transition to Comfort (10) Bilateral lower extremity edema: Plan: low albumin, decompensated hypothyroidism, and worsening renal function all contributed cannot rule out LE DVT but defer w/u (11) COPD (chronic obstructive pulmonary disease): Plan: end-stage, severe, on NC O2 3 L at home respiratory status worse in face of #1 titrate O2 for comfort (12) Hypertension: (13) Esophageal dysphagia: (14) Generalized weakness: Plan: multifactorial now comfort care (15) Liver metastases: (16) GERD (gastroesophageal reflux disease): (17) Hypothyroidism: (18) Candidiasis of mouth and esophagus: Plan: stop Rx Plan: full transition to comfort care pathway palliative care consult is in place and Joanna Hendricks will assist DNR/DNI move to med/surg total time today - critical care - 150 minutes - including numerous bedside visits, management of magno hurt x 2 as delineated in this note, complex care coordination, multiple talks with family (first was on the 2nd floor, second talk was after patient was moved to 3rd floor for comfort), speaking w/ radiology about CT head, etc. Admission and Anticipated Discharge Date Admission Date: July 23, 2021 Subjective Magno hurt called ~840 this am. Staff report that she had an uneventful evening. Last seen well about ~8am. Ate very little breakfast. Speech was clear at 8am. About 840am nursing went back into her room and noted she had altered mental status. Eyes were open but she was staring and slumped to her left side. She was not speaking or following commands. Upon my arrival (about 3-4 min after amgno was called) she was awake with eyes open but still not following commands. BSG 103. Vitals stable including O2 sats. Exam - CV - RRR, s1 s2 lungs - mild b/l exp wheezes abd - soft NT face - drool coming from Left mouth neuro - not moving left arm, some movement of right arm, not moving either leg; babinski's equivocal Ordered STAT labs and CT head. Just prior to going to CT she started to talk albeit it was difficult to understand her. CT head obtained - extensive calvarial mets, no obvious ICH/acute CVA/parenchymal mets. Upon return from CT to her room she was now following commands, answering questions, but was confused stating she was at home. Denied headache. Denied chest pain. c/o dyspnea. Repeat exam - face - no droop neuro - handgrip 5/5 on right; handgrip on left 4-5/5; moves both legs equally distally; left arm biceps 4-5/5; left shoulder extension 3-4/5 speech clear, fluent oriented to person only (thought she was at home) I was suspicious she may have had a seizure this am; cannot rule out acute CVA but less likely. I ordered renally-dosed keppra 500mg IV x 1 STAT. I attempted to call both of the pt's sisters listed in chart - no answer, left messages for them to call rajani. Magno hurt called again minutes after. Nurses witnessed generalized tonic-clonic activity this time. Lasted 1-2 minutes. Upon arrival the patient was now lethargic. Seizure activity had stopped. Vitals continued to remain stable including o2 sats in low 90s (baseline). Exam was unchanged except patient now lethargic, eyes closed, and pulmonary status was more labored with tachypnea and mild increased work of breathing. Supplemental O2 was increased by way of mask. I ordered 1mg ativan IV x 1 and this was administered right away. jay arrived from pharmacy and hung. repeat BSG still >100. Total Calcium was low this am even when corrected for low albumin - thus, 2 grams calcium gluconate x 1 ordered STAT. I suspected seizure activity either 2nd to hypocalcemia vs brain mets vs stroke vs combination of factors. VERY VERY poor prognosis. attempting to have family come right away to discuss comfort care measures in light of stage 4 cancer, significant ARF, and today's events. family did call back and reported they would be at [facility] within an hour. upon their arrival I met with pt's sister, Marilyn, and pt's cousin. met for 30-40 minutes with them discussed events leading up to today (worsening renal failure, progressing stage 4 cancer, failure to thrive, etc) discussed events of this am including seizures discussed worsening acidosis/renal function despite supportive care Marilyn confirmed she was at the office visit with Emily and Dr Marcano when hospice was discussed; Marilyn confirmed that indeed the plan would be hospice if the chemo was no longer working or causing toxicity We discussed today that clearly the chemo is not working - her cancer is progressing despite such I expressed concern that her chemo could have caused renal toxicity I expressed concern that her seizures could be from brain mets and/or low calcium discussed options for care, but advised transitioning to comfort care with DNR/DNI in light of multi-organ failure, seizures, advanced lung ca, etc Marilyn agreeable to DNR/DNI and comfort care Margarita to called a Christianity lamination operator to pray with patient we discussed what the next few days may look like will stop tele, labs, etc move to med/surg for comfort care nursing staff aware of plan Review of Systems Review of Systems: Unobtainable due to cognitive status and Unobtainable due to reduced consciousness Physical Exam Physical Exam: gen - generalized muscle wasting, cachectic, altered mental status/lethargic, drool on left side of face mouth - MM dry neck - no JVD heart - RRR, s1 s2, no obvious murmur lungs - decreased BS b/l bases; b/l wheezes; tachypnea; mild retractions; course upper airway noises as well abd - mildly distended, BS+, NT ext - LUE with gross swelling (unchanged); b/l leg edema unchanged; pulses 1+ b/l feet neuro - prior to 2nd seizure event - was moving right arm but left arm was modestly weak; was not moving her legs; no facial droop Results & Data Results & Data ([facility]) Vital Signs (Past 12 Hours) Vital Signs Temp Pulse Pulse Resp BP Pulse Ox Pulse Ox 07/25/21 07:29 36.3 C L 83 18 160/94 H 96 07/25/21 07:07 80 07/25/21 06:54 87 22 95 07/25/21 04:03 36.4 C L 88 20 155/90 H 94 07/25/21 01:38 96 07/24/21 22:51 36.5 C 94 H 20 150/95 H 97 07/24/21 22:18 93 H Laboratory Results Laboratory Results - last 24 hr 07/24/21 07/25/21 07/25/21 02:49 05:35 08:36 WBC RBC Hgb Hct MCV MCH MCHC RDW Std Deviation RDW Coeff of Maxi Plt Count MPV Immature Gran % (Auto) Neut % (Auto) Lymph % (Auto) Patrick % (Auto) Eos % (Auto) Baso % (Auto) Neut # (Auto) Lymph # (Auto) Patrick # (Auto) Eos # (Auto) Baso # (Auto) Immature Gran # (Auto) Anisocytosis Echinocytes PT INR VBG pH VBG pCO2 VBG pO2 VBG HCO3 VBG O2 Saturation VBG Base Excess Barometric Pressure Sodium 133 L Potassium 5.2 H Chloride 100 Carbon Dioxide 20 L Anion Gap 13 H BUN 83 H Creatinine 6.08 H* Est Cr Clr Drug Dosing 8.6 Est GFR ( Amer) 7.7 Est GFR (Non-Af Amer) 6.7 BUN/Creatinine Ratio 13.7 Glucose 81 POC Glucose 103 H Lactate Calcium 5.6 L* Total Bilirubin Direct Bilirubin AST ALT Alkaline Phosphatase Ammonia Troponin I High Sens Total Protein Albumin Procalcitonin Prolactin Hepatitis C Ab (EIA) NON-REACTIVE Hep C Ab Signal/Cutoff 0.04 07/25/21 07/25/21 07/25/21 08:45 08:49 08:49 WBC RBC Hgb Hct MCV MCH MCHC RDW Std Deviation RDW Coeff of Maxi Plt Count MPV Immature Gran % (Auto) Neut % (Auto) Lymph % (Auto) Patrick % (Auto) Eos % (Auto) Baso % (Auto) Neut # (Auto) Lymph # (Auto) Patrick # (Auto) Eos # (Auto) Baso # (Auto) Immature Gran # (Auto) Anisocytosis Echinocytes PT INR VBG pH VBG pCO2 VBG pO2 VBG HCO3 VBG O2 Saturation VBG Base Excess Barometric Pressure Sodium Potassium Chloride Carbon Dioxide Anion Gap BUN Creatinine Est Cr Clr Drug Dosing Est GFR ( Amer) Est GFR (Non-Af Amer) BUN/Creatinine Ratio Glucose POC Glucose Lactate Calcium Total Bilirubin 0.3 Direct Bilirubin 0.0 AST 12 L ALT 9 Alkaline Phosphatase 84 Ammonia 20.0 Troponin I High Sens Total Protein 5.7 L Albumin 2.7 L Procalcitonin 0.53 H Prolactin Hepatitis C Ab (EIA) Hep C Ab Signal/Cutoff 07/25/21 07/25/21 07/25/21 08:49 08:49 08:49 WBC 17.28 H RBC 2.91 L Hgb 8.9 L Hct 28.0 L MCV 96.2 MCH 30.6 MCHC 31.8 L RDW Std Deviation 60.7 H RDW Coeff of Maxi 17.3 H Plt Count 426 H MPV 8.8 Immature Gran % (Auto) 0.5 Neut % (Auto) 88.1 Lymph % (Auto) 4.9 Patrick % (Auto) 5.5 Eos % (Auto) 0.9 Baso % (Auto) 0.1 Neut # (Auto) 15.24 H Lymph # (Auto) 0.85 L Patrick # (Auto) 0.95 H Eos # (Auto) 0.15 Baso # (Auto) 0.01 Immature Gran # (Auto) 0.08 H Anisocytosis Present Echinocytes 1+ PT INR VBG pH 7.27 L VBG pCO2 43 VBG pO2 60 VBG HCO3 20 VBG O2 Saturation 86.7 VBG Base Excess -7.0 Barometric Pressure 724.8 Sodium Potassium Chloride Carbon Dioxide Anion Gap BUN Creatinine Est Cr Clr Drug Dosing Est GFR ( Amer) Est GFR (Non-Af Amer) BUN/Creatinine Ratio Glucose POC Glucose Lactate Calcium Total Bilirubin Direct Bilirubin AST ALT Alkaline Phosphatase Ammonia Troponin I High Sens Total Protein Albumin Procalcitonin Prolactin 90.24 Hepatitis C Ab (EIA) Hep C Ab Signal/Cutoff 07/25/21 07/25/21 07/25/21 08:49 09:29 09:40 WBC RBC Hgb Hct MCV MCH MCHC RDW Std Deviation RDW Coeff of Maxi Plt Count MPV Immature Gran % (Auto) Neut % (Auto) Lymph % (Auto) Patrick % (Auto) Eos % (Auto) Baso % (Auto) Neut # (Auto) Lymph # (Auto) Patrick # (Auto) Eos # (Auto) Baso # (Auto) Immature Gran # (Auto) Anisocytosis Echinocytes PT 10.3 INR 1.0 VBG pH VBG pCO2 VBG pO2 VBG HCO3 VBG O2 Saturation VBG Base Excess Barometric Pressure Sodium Potassium Chloride Carbon Dioxide Anion Gap BUN Creatinine Est Cr Clr Drug Dosing Est GFR ( Amer) Est GFR (Non-Af Amer) BUN/Creatinine Ratio Glucose POC Glucose 122 H Lactate 0.9 Calcium Total Bilirubin Direct Bilirubin AST ALT Alkaline Phosphatase Ammonia Troponin I High Sens Total Protein Albumin Procalcitonin Prolactin Hepatitis C Ab (EIA) Hep C Ab Signal/Cutoff 07/25/21 10:43 WBC RBC Hgb Hct MCV MCH MCHC RDW Std Deviation RDW Coeff of Maxi Plt Count MPV Immature Gran % (Auto) Neut % (Auto) Lymph % (Auto) Patrick % (Auto) Eos % (Auto) Baso % (Auto) Neut # (Auto) Lymph # (Auto) Patrick # (Auto) Eos # (Auto) Baso # (Auto) Immature Gran # (Auto) Anisocytosis Echinocytes PT INR VBG pH VBG pCO2 VBG pO2 VBG HCO3 VBG O2 Saturation VBG Base Excess Barometric Pressure Sodium Potassium Chloride Carbon Dioxide Anion Gap BUN Creatinine Est Cr Clr Drug Dosing Est GFR ( Amer) Est GFR (Non-Af Amer) BUN/Creatinine Ratio Glucose POC Glucose Lactate Calcium Total Bilirubin Direct Bilirubin AST ALT Alkaline Phosphatase Ammonia Troponin I High Sens 10.1 Total Protein Albumin Procalcitonin Prolactin Hepatitis C Ab (EIA) Hep C Ab Signal/Cutoff Diagnostic Findings Extremity Venous Study 07/24/21 14:34 LEFT UPPER EXTREMITY VENOUS DOPPLER HISTORY: advanced lung ca; edema of LUE; port; eval DVT COMPARISON STUDY: None. FINDINGS: The left internal jugular vein is patent. There is normal flow within the left subclavian vein. There is normal flow and compressibility within the left axillary, basilic, brachial, radial, and ulnar veins. The cephalic vein was not identified and may have been compressed from the upper extremity edema. IMPRESSION: No DVT within the left upper extremity. ACT 112: Negative or not required by law. Electronically signed by: Kel Cm M.D. 07/25/2021 7:[address] 07/25/21 08:46 CT SCAN OF THE BRAIN WITHOUT IV CONTRAST CLINICAL HISTORY: Change in mental status. Lung cancer. COMPARISON STUDY: MRI of the brain dated 02/23/2017. TECHNIQUE: Unenhanced axial CT scan of the brain is performed from the vertex to the skull base. A dose lowering technique was utilized adhering to the principles of ALARA. The examination is degraded by motion artifact. CT DOSE: 537.48 mGy.cm FINDINGS: Brain parenchyma: There are age-related involutional changes noting moderate subcortical and periventricular microangiopathic change. There is no hemorrhage, mass effect, or evidence of acute territorial ischemia by CT criteria. Shaw- white matter differentiation is preserved. No extra-axial fluid collection is seen. Ventricles, sulci, cisterns: Prominent secondary to involutional change. Intracranial vasculature: There is atherosclerotic calcification of the cavernous carotid arteries. Calvarium: There is evidence of diffuse osteoblastic metastatic disease. Sinuses and mastoids: The visualized paranasal sinuses are clear. There is trace left mastoid effusion. The right mastoid air cells are well pneumatized. Orbits: The bony orbits are grossly intact. There are bilateral ocular lens implants. IMPRESSION: 1. There is no evidence of hemorrhage, mass effect, or acute territorial ischemia by CT criteria noting a significantly motion compromised examination. 2. There is evidence of diffuse osteoblastic metastatic disease throughout the calvarium. ACT 112: Negative or not required by law. Electronically signed by: Renzo Chiu M.D. 07/25/2021 9:04 AM Chest X-Ray 07/25/21 10:24 SINGLE VIEW CHEST CLINICAL HISTORY: Seizure. Hypoxia. FINDINGS: An AP, portable, upright chest radiograph is compared to study dated 07/24/2021 and correlated with chest CT dated 04/16/2021. A left subclavian central venous infusion port is unchanged in position. The heart is enlarged noting atherosclerotic calcification of the thoracic aorta. The pulmonary vasculature is noncongested. Advanced emphysema and chronic interstitial thickening is similar to previous. There is a probable scarring are seen throughout both lungs. Intermittent right upper lobe pulmonary lesion is not well-visualized by chest x-ray. There are layering pleural effusions with bibasilar consolidation. No pneumothorax is seen. Findings extensive/diffuse osteoblastic metastatic disease are similar to previous. IMPRESSION: 1. Cardiomegaly and emphysema. 2. There are layering pleural effusions with bibasilar consolidation. This is similar to yesterday and could represent atelectasis and/or an infectious/inflammatory pneumonitis. Clinical correlation will required. 3. 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 ACT 112: Negative or not required by law. Electronically signed by: Renzo Chiu M.D. 07/25/2021 11:15 AM PG Care Time/CCT Total # of Minutes Spent Total Time Spent with Patient: Total time spent is greater than 50% in coordination of care (as documented) at patient's floor/unit and/or counseling patient: Critical Care Time: Yes 150 Coding Level of Care Code None Diagnoses Acute kidney injury superimposed on CKD N17.9; N18.9 Hyperkalemia E87.5 Acute urinary retention R33.8 Left arm swelling M79.89 Hypocalcemia E83.51 Hyperphosphatemia E83.39 Bilateral lower extremity edema R60.0 COPD (chronic obstructive pulmonary disease) J44.9 Hypertension I10 Esophageal dysphagia R13.10 Generalized weakness R53.1 Metastatic lung cancer (metastasis from lung to other site) C34.90 Liver metastases C78.7 GERD (gastroesophageal reflux disease) K21.9 Hypothyroidism E03.9 Candidiasis of mouth and esophagus B37.81; B37.0 Recurrent seizures G40.909 Acute metabolic encephalopathy G93.41 Additional Codes Critical Care Time - Critical Care Time: Yes ([id number]) Comment critical care time = 150 minutes
[2021-07-25] MEDS ORDERED: FAMOTIDINE 20 MG TAB PO SCH (09:00)
[2021-07-25] MEDS ORDERED: HEPARIN SOD 5,000 UNIT/0.5 ML VIAL SQ SCH (09:00)
[2021-07-25] MEDS ORDERED: CALCITRIOL 0.25 MCG CAPSULE PO SCH (09:00)
--- NOTE | 2021-07-25 09:05 | CT Scan Report ---
CT SCAN OF THE BRAIN WITHOUT IV CONTRAST CLINICAL HISTORY: Change in mental status. Lung cancer. COMPARISON STUDY: MRI of the brain dated 02/23/2017. TECHNIQUE: Unenhanced axial CT scan of the brain is performed from the vertex to the skull base. A do se lowering technique was utilized adhering to the principles of ALARA. The examination is degraded b y motion artifact. CT DOSE: 537.48 mGy.cm FINDINGS: Brain parenchyma: There are age-related involutional changes noting moderate subcortical and periven tricular microangiopathic change. There is no hemorrhage, mass effect, or evidence of acute territori al ischemia by CT criteria. Shaw-white matter differentiation is preserved. No extra-axial fluid monalisa ection is seen. Ventricles, sulci, cisterns: Prominent secondary to involutional change. Intracranial vasculature: There is atherosclerotic calcification of the cavernous carotid arteries. Calvarium: There is evidence of diffuse osteoblastic metastatic disease. Sinuses and mastoids: The visualized paranasal sinuses are clear. There is trace left mastoid effusio n. The right mastoid air cells are well pneumatized. Orbits: The bony orbits are grossly intact. There are bilateral ocular lens implants. IMPRESSION: 1. There is no evidence of hemorrhage, mass effect, or acute territorial ischemia by CT criteria noti ng a significantly motion compromised examination. 2. There is evidence of diffuse osteoblastic metastatic disease throughout the calvarium. ACT 112: Negative or not required by law. Electronically signed by: Renzo Chiu M.D. 07/25/2021 9:04 AM
[2021-07-25 09:14] LABS: Basophils # (auto) 0.01 K/uL (0-0.2); Basophils % (auto) 0.1 %; Eosinophils # (auto) 0.15 K/uL (0-0.5); Eosinophils % (auto) 0.9 %; Hemoglobin 8.9 g/dL (12.0-16.0); Immature Granulocytes # (auto) 0.08 K/uL (0.00-0.02); Immature Granulocytes % (auto) 0.5 %; Lymphocytes # (auto) 0.85 K/uL (1.2-3.4); Lymphocytes % (auto) 4.9 %; Mean Corpuscular Hemoglobin 30.6 pg (25-34); Mean Corpuscular Volume 96.2 fL (80-100); Mean Platelet Volume 8.8 fL (7.4-10.4); Monocytes # (auto) 0.95 K/uL (0.11-0.59); Monocytes % (auto) 5.5 %; Neutrophils # (auto) 15.24 K/uL (1.4-6.5); Neutrophils % (auto) 88.1 %; Platelet Count 426 K/uL (130-400); RDW Coefficient of Variation 17.3 % (11.5-14.5); RDW Standard Deviation 60.7 fL (36.4-46.3); Red Blood Count 2.91 M/uL (4.2-5.4); White Blood Count 17.28 K/uL (4.8-10.8)
[2021-07-25 09:19] LABS: Prothrombin Time 10.3 Seconds (9.0-12.0)
[2021-07-25] MEDS: allopurinoL 100 MG TAB PO SCH (09:19)
[2021-07-25] MEDS: amLODIPine BESYLATE 5 MG TAB PO SCH (09:19)
[2021-07-25] MEDS: guaiFENesin SUGAR FREE 100 MG/5 ML UDC PO SCH ×2 (09:20→12:26)
[2021-07-25] MEDS: NYSTATIN SUSP 500,000 U/5 ML UDC PO SCH ×2 (09:20→12:26)
[2021-07-25] MEDS: predniSONE 10 MG TABLET PO SCH (09:20)
[2021-07-25] MEDS: UMECLIDINIUM/VILANTEROL 62.5/25MCG 7 PUFFS/INHALER INH SCH (09:21)
[2021-07-25 09:24] LABS: Oxygen Saturation VBG 86.7 %; pH VBG 7.27 (7.36-7.41)
[2021-07-25 09:27] LABS: Mean Corpuscular Hgb Conc 31.8 g/dL (32-36)
[2021-07-25] MEDS ORDERED: levETIRAcetam 500 MG in 0.9 % SODIUM CHLORIDE 100 ML IV STA (09:30)
[2021-07-25 09:36] LABS: Anisocytosis Present; Echinocytes 1+
[2021-07-25] MEDS ORDERED: LORazepam 2 MG/1 ML VIAL ONE (09:37)
[2021-07-25 09:40] LABS: Albumin Level 2.7 gm/dl (3.4-5.0); Bilirubin,Total 0.3 mg/dl (0.2-1.0); Total Protein 5.7 gm/dl (6.0-8.3)
[2021-07-25] MEDS ORDERED: STAT IV STA (09:44)
[2021-07-25] MEDS ORDERED: CALCIUM GLUCONATE 10% 2,000 MG in DEXTROSE 5% 50 ML IV ONE (10:00)
[2021-07-25] MEDS: ALBUT/IPRATROP 3MG/0.5MG NEB 3 ML VIAL NEB PRN (10:55)
--- NOTE | 2021-07-25 11:04 | Nephrology Progress Note ---
Date of Service July 25, 2021 Assessment & Plan (1) Hyperkalemia: (2) Hypocalcemia: (3) Hyperphosphatemia: (4) Acute kidney injury superimposed on CKD: (5) Anemia: Plan: Unfortunately, Emily's overall prognosis is very poor. She is not currently responsive. Kidney function stable. Volume status is reasonable and there are no electrolyte abnormalities requiring emergent dialysis. Hemodialysis is unlikely to provide any benefit and in her current condition I do not think that she would be able to tolerate dialysis treatments. IV calcium gluconate is being provided for hypocalcemia. Mild hyperkalemia persists with a predominately AGMA. BP is acceptable. No need for HCO3 replacement at this time. Additional K binders held. Monitor metabolic profile closely. Ultimately, goals of care need to be addressed. Admission and Anticipated Discharge Date Admission Date: July 23, 2021 Subjective Emily is unresponsive this morning. She did not respond to voice or touch. She is s/p lorazepam + Keppra for witnessed seizure activity. Rapid response x 2 called this AM by RN. Initially, patient was found acutely unresponsive and later with seizure (tonic clonic) activity. Patient was evaluated by Dr. Chowdhury. When I rounded on the patient, she was evaluated with the bedside RN but Emily was not responsive. I attempted to contact her sister (Marilyn). At the number listed in the chart, the man who answered told me that Marilyn could be reached at [phone] but there was no answer at this number. Review of Systems Review of Systems: Unobtainable due to reduced consciousness Physical Exam Constitutional: + ill appearing, + cachectic and + frail appearing Eyes: + anicteric sclerae; no corneal abnormality ENMT: Mouth: + dry oral mucous membranes and + poor dentition Neck: trachea midline Thyroid: no thyromegaly Respiratory: + tachypneic; no labored breathing and does not use accessory muscles Auscultation: lungs clear to auscultation bilaterally and + rales Cardiovascular: Rate/Rhythm: regular rate Heart Sounds: normal S1, normal S2 and + murmur Vessels: + JVD Extremities: + edema Gastrointestinal (Abdomen): Percussion/Palpation: abdomen soft; abdomen nontender Skin: + turgor decreased and + dry skin Neurologic: + obtunded Results & Data ([facility]) Vital Signs (Past 12 Hours) Vital Signs Temp Pulse Pulse Resp BP Pulse Ox Pulse Ox 07/25/21 10:55 90 20 92 07/25/21 10:52 156/87 H 96 07/25/21 07:29 36.3 C L 83 18 160/94 H 96 07/25/21 07:07 80 07/25/21 06:54 87 22 95 07/25/21 04:03 36.4 C L 88 20 155/90 H 94 07/25/21 01:38 96 Laboratory Results Laboratory Results - last 24 hr 07/24/21 07/24/21 07/25/21 02:49 14:21 05:35 WBC RBC Hgb Hct MCV MCH MCHC RDW Std Deviation RDW Coeff of Maxi Plt Count MPV Immature Gran % (Auto) Neut % (Auto) Lymph % (Auto) [place] % (Auto) Eos % (Auto) Baso % (Auto) Neut # (Auto) Lymph # (Auto) [place] # (Auto) Eos # (Auto) Baso # (Auto) Immature Gran # (Auto) Anisocytosis Echinocytes PT INR VBG pH VBG pCO2 VBG pO2 VBG HCO3 VBG O2 Saturation VBG Base Excess Barometric Pressure Sodium 132 L 133 L Potassium 5.6 H 5.2 H Chloride 99 100 Carbon Dioxide 21 20 L Anion Gap 12 H 13 H BUN 82 H 83 H Creatinine 6.06 H* D 6.08 H* Est Cr Clr Drug Dosing 8.7 8.6 Est GFR ( Amer) 7.8 7.7 Est GFR (Non-Af Amer) 6.7 6.7 BUN/Creatinine Ratio 13.5 13.7 Glucose 104 H 81 POC Glucose Lactate Uric Acid 7.9 H Calcium 5.4 L* 5.6 L* Phosphorus 7.6 H Magnesium 1.8 Total Bilirubin Direct Bilirubin AST ALT Alkaline Phosphatase Ammonia Total Creatine Kinase 126 Troponin I High Sens Total Protein Albumin 2.6 L Procalcitonin Prolactin Hepatitis C Ab (EIA) NON-REACTIVE Hep C Ab Signal/Cutoff 0.04 07/25/21 07/25/21 07/25/21 08:36 08:45 08:49 WBC RBC Hgb Hct MCV MCH MCHC RDW Std Deviation RDW Coeff of Maxi Plt Count MPV Immature Gran % (Auto) Neut % (Auto) Lymph % (Auto) [place] % (Auto) Eos % (Auto) Baso % (Auto) Neut # (Auto) Lymph # (Auto) [place] # (Auto) Eos # (Auto) Baso # (Auto) Immature Gran # (Auto) Anisocytosis Echinocytes PT INR VBG pH VBG pCO2 VBG pO2 VBG HCO3 VBG O2 Saturation VBG Base Excess Barometric Pressure Sodium Potassium Chloride Carbon Dioxide Anion Gap BUN Creatinine Est Cr Clr Drug Dosing Est GFR ( Amer) Est GFR (Non-Af Amer) BUN/Creatinine Ratio Glucose POC Glucose 103 H Lactate Uric Acid Calcium Phosphorus Magnesium Total Bilirubin 0.3 Direct Bilirubin 0.0 AST 12 L ALT 9 Alkaline Phosphatase 84 Ammonia 20.0 Total Creatine Kinase Troponin I High Sens Total Protein 5.7 L Albumin 2.7 L Procalcitonin Prolactin Hepatitis C Ab (EIA) Hep C Ab Signal/Cutoff 07/25/21 07/25/21 07/25/21 08:49 08:49 08:49 WBC 17.28 H RBC 2.91 L Hgb 8.9 L Hct 28.0 L MCV 96.2 MCH 30.6 MCHC 31.8 L RDW Std Deviation 60.7 H RDW Coeff of Maxi 17.3 H Plt Count 426 H MPV 8.8 Immature Gran % (Auto) 0.5 Neut % (Auto) 88.1 Lymph % (Auto) 4.9 [place] % (Auto) 5.5 Eos % (Auto) 0.9 Baso % (Auto) 0.1 Neut # (Auto) 15.24 H Lymph # (Auto) 0.85 L [place] # (Auto) 0.95 H Eos # (Auto) 0.15 Baso # (Auto) 0.01 Immature Gran # (Auto) 0.08 H Anisocytosis Present Echinocytes 1+ PT INR VBG pH 7.27 L VBG pCO2 43 VBG pO2 60 VBG HCO3 20 VBG O2 Saturation 86.7 VBG Base Excess -7.0 Barometric Pressure 724.8 Sodium Potassium Chloride Carbon Dioxide Anion Gap BUN Creatinine Est Cr Clr Drug Dosing Est GFR ( Amer) Est GFR (Non-Af Amer) BUN/Creatinine Ratio Glucose POC Glucose Lactate Uric Acid Calcium Phosphorus Magnesium Total Bilirubin Direct Bilirubin AST ALT Alkaline Phosphatase Ammonia Total Creatine Kinase Troponin I High Sens Total Protein Albumin Procalcitonin Pending Prolactin Hepatitis C Ab (EIA) Hep C Ab Signal/Cutoff 07/25/21 07/25/2122 08:49 08:49 09:29 WBC RBC Hgb Hct MCV MCH MCHC RDW Std Deviation RDW Coeff of Maxi Plt Count MPV Immature Gran % (Auto) Neut % (Auto) Lymph % (Auto) [place] % (Auto) Eos % (Auto) Baso % (Auto) Neut # (Auto) Lymph # (Auto) [place] # (Auto) Eos # (Auto) Baso # (Auto) Immature Gran # (Auto) Anisocytosis Echinocytes PT 10.3 INR 1.0 VBG pH VBG pCO2 VBG pO2 VBG HCO3 VBG O2 Saturation VBG Base Excess Barometric Pressure Sodium Potassium Chloride Carbon Dioxide Anion Gap BUN Creatinine Est Cr Clr Drug Dosing Est GFR ( Amer) Est GFR (Non-Af Amer) BUN/Creatinine Ratio Glucose POC Glucose Lactate 0.9 Uric Acid Calcium Phosphorus Magnesium Total Bilirubin Direct Bilirubin AST ALT Alkaline Phosphatase Ammonia Total Creatine Kinase Troponin I High Sens Total Protein Albumin Procalcitonin Prolactin 90.24 Hepatitis C Ab (EIA) Hep C Ab Signal/Cutoff 07/25/21 07/25/21 09:40 10:43 WBC RBC Hgb Hct MCV MCH MCHC RDW Std Deviation RDW Coeff of Maxi Plt Count MPV Immature Gran % (Auto) Neut % (Auto) Lymph % (Auto) [place] % (Auto) Eos % (Auto) Baso % (Auto) Neut # (Auto) Lymph # (Auto) [place] # (Auto) Eos # (Auto) Baso # (Auto) Immature Gran # (Auto) Anisocytosis Echinocytes PT INR VBG pH VBG pCO2 VBG pO2 VBG HCO3 VBG O2 Saturation VBG Base Excess Barometric Pressure Sodium Potassium Chloride Carbon Dioxide Anion Gap BUN Creatinine Est Cr Clr Drug Dosing Est GFR ( Amer) Est GFR (Non-Af Amer) BUN/Creatinine Ratio Glucose POC Glucose 122 H Lactate Uric Acid Calcium Phosphorus Magnesium Total Bilirubin Direct Bilirubin AST ALT Alkaline Phosphatase Ammonia Total Creatine Kinase Troponin I High Sens Pending Total Protein Albumin Procalcitonin Prolactin Hepatitis C Ab (EIA) Hep C Ab Signal/Cutoff PG Care Time/CCT Total # of Minutes Spent Total Time Spent with Patient: Total time spent is greater than 50% in coordination of care (as documented) at patient's floor/unit and/or counseling patient: Coding Level of Care Code 54540 Subseq Hosp Care Lvl 3 Diagnoses Hyperkalemia E87.5 Hypocalcemia E83.51 Hyperphosphatemia E83.39 Acute kidney injury superimposed on CKD N17.9; N18.9 Anemia D64.9 Anemia type: unspecified type (1) Anemia Anemia type: unspecified type Qualified Code(s): D64.9 - Anemia, unspecified
--- NOTE | 2021-07-25 11:16 | XRay Report ---
SINGLE VIEW CHEST CLINICAL HISTORY: Seizure. Hypoxia. FINDINGS: An AP, portable, upright chest radiograph is compared to study dated 07/24/2021 and correlat ed with chest CT dated 04/16/2021. A left subclavian central venous infusion port is unchanged in posit ion. The heart is enlarged noting atherosclerotic calcification of the thoracic aorta. The pulmonary vasculature is noncongested. Advanced emphysema and chronic interstitial thickening is similar to pre vious. There is a probable scarring are seen throughout both lungs. Intermittent right upper lobe pul monary lesion is not well-visualized by chest x-ray. There are layering pleural effusions with bibasi lar consolidation. No pneumothorax is seen. Findings extensive/diffuse osteoblastic metastatic diseas e are similar to previous. IMPRESSION: 1. Cardiomegaly and emphysema. 2. There are layering pleural effusions with bibasilar consolidation. This is similar to yesterday an d could represent atelectasis and/or an infectious/inflammatory pneumonitis. Clinical correlation jani l required. 3. 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 ACT 112: Negative or not required by law. Electronically signed by: Renzo Chiu M.D. 07/25/2021 11:15 AM
--- NOTE | 2021-07-25 14:01 | Palliative Care Consultation ---
Date of Consultation July 25, 2021 Assessment & Plan (1) Palliative care encounter: Emily is a 65 year old female who presented to the [facility] ED directly from [facility] ED as she was expereincing fatigue, general weakness, and leg swelling. She has metastatic lung cancer on current chemotherapy, and COPD. She has had lymphedema in the past, but was ultimately transferred due to her creatinine rising, now 6.6. Nephrology was consulted while she was here and palliative medicine was consulted to confirm goals of care. The patient was ultimately non responsive when I visited with her. The main hospitalist was present when the patient was noted to have a witnessed seizure. I was able to speak with the patients sister, Marilyn, on the phone at length regarding her condition. Per discussion with the hospitalist, the patient will be transitioned to comfort measures only. Marilyn was on her way back to the hospital when I spoke with her and I explained that her life expectancy is likely hours to a day or two. Due to her worsening creatinine, I ordered Dilaudid 0.2 mg IV as there is less chance for opioid toxicity, which can lead to further myoclonus. Patient has been ordered IV Keppra for further seizure prophylaxis. Ativan IV PRN also ordered. Support provided to the family as well. Suggest weaning O2 to nursing and treating air hunger with Dilaudid. Pt is anticipated to while inpatient. Thanks for involving palliative with this individual. (2) Recurrent seizures: (3) Generalized weakness: (4) Acute kidney injury superimposed on CKD: History of Present Illness Reason for Consultation: Goals of care Requesting Physician: Dr. Chowdhury Attending Physician: Drew Banegas History of Present Illness Emily is a 65 year old female who presented to the [facility] ED directly from [facility] ED as she was expereincing fatigue, general weakness, and leg swelling. She has metastatic lung cancer on current chemotherapy, and COPD. She has had lymphedema in the past, but was ultimately transferred due to her creatinine rising, now 6.6. Nephrology was consulted while she was here and palliative medicine was consulted to confirm goals of care. Please see A/P for further details. Thanks for involving palliative medicine with this individual. Allergies Allergy/AdvReac Type Severity Reaction Status Date / Time red dye Allergy Mild LIGHTHEADED Verified 06/24/21 09:54 No Known Drug Allergies Allergy Verified 06/24/21 09:54 Home Medications Medication Instructions Recorded Confirmed Type folic acid 1 mg tablet 1 mg PO QAM 10/22/18 07/24/21 History potassium chloride 20 mEq 20 meq PO QAM 10/22/18 07/24/21 History tablet,extended release(part/cryst) prednisone 10 mg tablet 10 mg PO QAM 10/22/18 07/24/21 History fluticasone propionate 50 1 spray INTRANASAL BID 02/14/19 07/24/21 History mcg/actuation nasal spray,suspension (Flonase Allergy Relief) losartan 100 mg tablet 100 mg PO QAM 10/12/19 07/24/21 History ondansetron HCl 8 mg tablet 8 mg PO Q8H PRN 04/16/21 07/24/21 History oxycodone 5 mg tablet 5 mg PO Q8H PRN 04/16/21 07/24/21 History albuterol sulfate 90 mcg/actuation 1 inh INHALATION QID PRN 06/13/21 07/24/21 History aerosol inhaler pantoprazole 40 mg tablet,delayed 40 mg PO QAM 06/13/21 07/24/21 History release umeclidinium 62.5 mcg-vilanterol 1 ea INHALATION QAM 06/13/21 07/24/21 History 25 mcg/actuation powdr for inhalation (Anoro Ellipta) amlodipine 10 mg tablet 10 mg PO DAILY 07/05/21 07/24/21 History benzonatate 100 mg capsule 100 mg PO QAM 07/24/21 07/24/21 History levothyroxine 125 mcg tablet 175 mcg PO QAM 07/24/21 07/24/21 History prochlorperazine maleate 10 mg 10 mg PO BID PRN 07/24/21 07/24/21 History tablet roflumilast 500 mcg tablet 500 mcg PO QPM 07/24/21 07/24/21 History (Daliresp) tiotropium bromide 2.5 2 puff INHALATION QID 07/24/21 07/24/21 History mcg/actuation mist for inhalation (Spiriva Respimat) Patient History Medical History (Updated 07/26/21 @ 22:07 by JAG Talley) COPD (chronic obstructive pulmonary disease) Dysphagia HX ESOPHAGEAL STRETCHING GERD (gastroesophageal reflux disease) Hypertension Hypothyroidism Metastatic lung cancer (metastasis from lung to other site) lung, bone, liver *CHEMO ENDED 3 WEEKS AGO (PRIMARY LUNG CANCER) On home oxygen therapy 3L O2 VIA [facility] Palliative care encounter Surgical History History of bronchoscopy History of cataract surgery RT/LEFT History of esophagogastroduodenoscopy (EGD) History of tooth extraction History of total abdominal hysterectomy and bilateral salpingo-oophorectomy History of vascular access device left A-port in place Status post dilation of esophageal narrowing Family History Mother Family history of diabetes mellitus Other No family history of adverse response to anesthesia Denies family history of Crohn's disease Colorectal cancer Ulcerative colitis Social History Smoking Status: Former smoker Cigarettes Per Day: 5; Smoking End Date: 2011; Second Hand Exposure: No; Do You Dip or Chew Tobacco: No; Tobacco Cessation Education Requested by Patient: No Hx Alcohol Use: No Hx Substance Use: No Preferred Language: Azerbaijani Communication Ability: Effective Audio Operator Required: No Beliefs That Will Affect Care: None Current Living Situation: Alone Current Living Situation Comment: Home health comes to see patient Other Information That Helps Us Care for You: No Feels Safe at Home: Yes Safety Concerns: Feels Safe At This Time Childhood Exposure to Second-Hand Smoke: Yes caffeine: Yes during the past year weight has: other Dental Care, Regularly: Yes Physical Activity Frequency: Does not Exercise Seatbelt Use: always Assistive Devices: Cane, Oxygen - Continuous and Walker Review of Systems Review of Systems: [place] System Assessment Scale: Pain: 0/3 SOB: 1/3 Tiredness: 1/3 Palliative Performance Scale: 20% Physical Exam Constitutional: + cachectic and + frail appearing ENMT: Mouth: + dry oral mucous membranes Respiratory: + respiratory distress and + uses accessory muscles Auscultation: + rhonchi Cardiovascular: Rate/Rhythm: regular rate and regular rhythm Heart Sounds: normal S1 and normal S2 Extremities: normal capillary refill Gastrointestinal (Abdomen): Inspection/Auscultation: abdomen normal to inspection Psychiatric: Orientation: alert Results & Data ([facility]) Vital Signs (Past 12 Hours) Vital Signs Temp Pulse Pulse Resp BP Pulse Ox 07/25/21 11:10 36.0 C L 83 11 L 155/82 H 92 07/25/21 10:55 90 20 92 07/25/21 10:52 156/87 H 96 07/25/21 07:29 36.3 C L 83 18 160/94 H 96 07/25/21 07:07 80 07/25/21 06:54 87 22 95 07/25/21 04:03 36.4 C L 88 20 155/90 H 94 PG Care Time/CCT Total # of Minutes Spent Total Time Spent with Patient: Total time spent is greater than 50% in coordination of care (as documented) at patient's floor/unit and/or counseling patient: 70 minutes Coding Level of Care Code 91937 Initial Inpt Care Lvl 3 Diagnoses Palliative care encounter Z51.5 Recurrent seizures G40.909 Generalized weakness R53.1 Acute kidney injury superimposed on CKD N17.9; N18.9 Time Spent (min) 70
[2021-07-25] MEDS ORDERED: HYDROmorphone INJ 0.5 MG/0.5 ML SYR IV PRN (14:09)
[2021-07-25] MEDS ORDERED: LORazepam 2 MG/1 ML VIAL IV PRN (15:27)
[2021-07-25] MEDS: GLYCOPYRROLATE 0.2 MG/ML VIAL IV PRN ×2 (15:35→21:58)
[2021-07-25] MEDS: LORazepam 2 MG/1 ML VIAL IV PRN (15:36)
[2021-07-25] MEDS: NICOTINE 21 MG/24 HR TDSY TD SCH (18:20)
[2021-07-25] MEDS: levETIRAcetam 250 MG in 0.9 % SODIUM CHLORIDE 100 ML IV SCH (21:34)
[2021-07-25] MEDS: HEPARIN 100 UNIT/ML 5ML FLUSH FLUSH PRN (21:58)
[2021-07-25] MEDS: MoRPHine SULFATE 2 MG/ML CARP IV PRN (21:58)
[2021-07-26] MEDS: MoRPHine SULFATE 2 MG/ML CARP IV PRN ×3 (03:10→17:11)
[2021-07-26] MEDS: HEPARIN 100 UNIT/ML 5ML FLUSH FLUSH PRN (03:10)
[2021-07-26] MEDS: levETIRAcetam 250 MG in 0.9 % SODIUM CHLORIDE 100 ML IV SCH ×2 (08:56→20:27)
[2021-07-26] MEDS: NICOTINE 21 MG/24 HR TDSY TD SCH (08:56)
[2021-07-26] MEDS: GLYCOPYRROLATE 0.2 MG/ML VIAL IV PRN ×4 (09:16→20:58)
[2021-07-26] MEDS: LORazepam 2 MG/1 ML VIAL IV PRN (17:11)
[2021-07-26] MEDS ORDERED: SCOPOLAMINE 1 MG TDSY TD SCH (18:00)
[2021-07-26] MEDS: ATROPINE SULFATE 1% OP SOLN 5 ML BTL PO PRN (20:22)
--- NOTE | 2021-07-26 21:09 | Hospitalist Progress Note ---
Date of Service July 26, 2021 Assessment & Plan (1) Comfort measures only status: Plan: cont comfort care pathway - martinez, oxygen, morphine prn, ativan prn add scopalamine patch add atropine drops prn robinul prn anticipate pt's passing in the next few days (2) Palliative care encounter: (3) Recurrent seizures: Plan: 07/25/21 AM. likely due to hypocalcemia - severe - along with suspected brain mets. s/p ativan/Keppra. despite comfort care status will cont IV keppra 250mg BID to try and avoid seizure activity. ativan prn is available as well. no seizures since yesterday am by report. (4) Acute metabolic encephalopathy: (5) Acute kidney injury superimposed on CKD: Plan: Patient had stage 3-4 CKD in late 2020/early 2021. Trend: creatinine 1.5 (04/2021) -> 2.73->3.61->4.13 (06/2021). Cr had peaked at about 6 to 6.5 prior to transition to comfort care. Nephrology had seen earlier this stay - not an HD candidate. I cannot rule out that chemotherapy (carboplatin) contributed to her renal dysfunction as she resumed chemo earlier this year per heme/onc records. Cont martinez for comfort. (6) Metastatic lung cancer (metastasis from lung to other site): Plan: had been followed by Dr Mir Marcano at [facility]. carbo/taxol chemo regimen used for salvage Rx per records recently. [facility] had suggested this regimen vs hospice. last chemo 2 weeks prior to admission. during palliative care talks with sister the patient had recently told the family that she was not going to pursue additional chemo. over the last 3 weeks the sister states that Emily had been miserable with intractable nausea, no appetite, unable to do her usual activities, etc. finally, office note from Dr Marcano from late June stated that if Emily experienced toxic effects from chemo or she had lack of response to chemo she would stop chemo and transition to hospice. Her sister stated that she had been at that office visit and she indeed confirmed that Emily had agreed to the above plan. (7) Hyperkalemia: Plan: 2nd to KACEY. (8) Acute urinary retention: Plan: s/p martinez placement. cont martinez for comfort. (9) Left arm swelling: Plan: doppler neg for LUE DVT dependent edema (10) Hypocalcemia: Plan: 2nd to worsening renal function. severe. (11) Hyperphosphatemia: Plan: 2nd severe renal dysfunction no Rx (12) Bilateral lower extremity edema: Plan: low albumin, decompensated hypothyroidism, and worsening renal function all contributed (13) COPD (chronic obstructive pulmonary disease): Plan: end-stage, severe, on [place] O2 3 L at home respiratory status worse in face of multiple seizures on 07/25 cont O2 for comfort (14) Hypertension: (15) Esophageal dysphagia: (16) Generalized weakness: (17) Liver metastases: (18) GERD (gastroesophageal reflux disease): (19) Hypothyroidism: (20) Candidiasis of mouth and esophagus: (21) Severe malnutrition: (22) Acute and chronic respiratory failure with hypoxia: Plan: support given to family at bedside Admission and Anticipated Discharge Date Admission Date: July 23, 2021 Subjective patient obtunded during my visit she had rapid respiratory rate and mild increased work of breathing staff provided morphine and ativan; following such her increased work of breathing improved she had copious secretions/girgling sounds during my visit sister, pt's cousin, and cousin's spouse at bedside they confirmed that a [facility] Pharmacist had come yesterday to give prayer & blessings patient did speak briefly to her cousin when he arrived earlier today but otherwise has been sleeping no oral intake of any kind Review of Systems Review of Systems: Unobtainable due to reduced consciousness Physical Exam Physical Exam: gen - generalized muscle wasting, cachectic, obtunded mouth - MM dry neck - no JVD heart - RRR, s1 s2, no obvious murmur lungs - extensive wheezing, course BS, and b/l rales with increased work of breathing abd - soft NT BS ext - edema present, warm, pulses 2+ b/l Results & Data Results & Data ([facility]) Vital Signs (Past 12 Hours) Vital Signs Resp Pulse Ox 07/26/21 13:48 20 10 L 07/26/21 09:20 20 PG Care Time/CCT Total # of Minutes Spent Total Time Spent with Patient: Total time spent is greater than 50% in coordination of care (as documented) at patient's floor/unit and/or counseling patient: Coding Level of Care Code 65966 Subseq Hosp Care Lvl 1 Diagnoses Recurrent seizures G40.909 Acute metabolic encephalopathy G93.41 Acute kidney injury superimposed on CKD N17.9; N18.9 Metastatic lung cancer (metastasis from lung to other site) C34.90 Hyperkalemia E87.5 Acute urinary retention R33.8 Left arm swelling M79.89 Hypocalcemia E83.51 Hyperphosphatemia E83.39 Bilateral lower extremity edema R60.0 COPD (chronic obstructive pulmonary disease) J44.9 Hypertension I10 Esophageal dysphagia R13.10 Generalized weakness R53.1 Liver metastases C78.7 GERD (gastroesophageal reflux disease) K21.9 Hypothyroidism E03.9 Candidiasis of mouth and esophagus B37.81; B37.0 Comfort measures only status Z51.5 Palliative care encounter Z51.5 Severe malnutrition E43 Acute and chronic respiratory failure with hypoxia J96.21
[2021-07-27] MEDS: CHECK SCOPOLAMINE PATCH PLACEMENT SCH ×2 (00:01→08:02)
[2021-07-27] MEDS: ATROPINE SULFATE 1% OP SOLN 5 ML BTL PO PRN ×2 (05:39→10:30)
[2021-07-27] MEDS: GLYCOPYRROLATE 0.2 MG/ML VIAL IV PRN (08:04)
[2021-07-27] MEDS: levETIRAcetam 250 MG in 0.9 % SODIUM CHLORIDE 100 ML IV SCH (08:04)
[2021-07-27] MEDS: NICOTINE 21 MG/24 HR TDSY TD SCH (08:04)
[2021-07-27] MEDS: MoRPHine SULFATE 2 MG/ML CARP IV PRN (10:31)
--- NOTE | 2021-07-27 11:40 | Death Pronouncement Note ---
Date of Service July 27, 2021 Pronouncement Note Admission Date July 23, 2021 Date and Time of Date of : 07/27/21 Time of : 10:59 Preliminary Cause of (1) Acute kidney injury superimposed on CKD: Contributing Factors Seizures Hypocalcemia Stage 4 lung cancer Additional Data Confirmation of : no pulse, no respirations, no heart sounds, pupils fixed and dilated and other (no response to pain or voice) Pronouncement Performed By: Attending Physician Family: at bedside Attending/PCP notified?: Yes Attending physician: Drew Banegas MD Was code activated?: No Autopsy requested?: No accident examiner notified?: No Coding Level of Care Code None Diagnoses Acute kidney injury superimposed on CKD N17.9; N18.9
--- NOTE | 2021-07-27 11:40 | Discharge Summary ---
Date of Service July 27, 2021 Admission HPI Per Admitting Provider 65 year old female w/ COPD on 3L home O2, metastatic lung cancer on recent chemo, HTN, hypothyroidism who presents as a direct admit from [place] [facility] where she was seen this evening for several days of fatigue, generalized wkness, leg swelling, and slightly worsened dyspnea/cough. She was transferred to [facility] because her creatinine was 6.6, w/ progressive uptrending in the past 2 months. Patient has had lymphedema in the past, but notes she did not notice leg swelling until several days ago and it has made it difficult to ambulate. She has had slight increased light yellow sputum production and mild cough. She stat es her respiratory symptoms are worse than her usual, but are not too bad. She denies fever/chills, abdominal/urinary symptoms, or pain. Her last chemotherapy was 2 weeks ago. She quit tobacco use 10 years ago. Patient denies any bleeding symptoms and is not on antiocagulation. Denies hx of VTE. She is on chronic prednisone 10mg. She lives with her sister. She has had her covid booster. Outside hospital labs: wbc 20. hb 9. Ca 4.9, 6.1 corrected. Cr 6.6. egfr 7. She was given IV calcium. anion gap 17.9. Discharge Data Allergies Allergy/AdvReac Type Severity Reaction Status Date / Time red dye Allergy Mild LIGHTHEADED Verified 06/24/21 09:54 No Known Drug Allergies Allergy Verified 06/24/21 09:54 Consultations 07/24/21 01:38 Consult Nephrology Routine 07/24/21 09:55 Consult Palliative Care Routine 07/24/21 11:21 Consult Urology Routine 07/25/21 05:43 Consult Palliative Care Routine Ordered Studies 07/24/21 01:54 US duplex renal artery Routine US renal/blad retro comp Routine 07/24/21 14:34 US venous doppler UE LT Routine 07/25/21 08:46 CT head/brain wo con Stat Discharge Plan Discharge Items Reason For Visit: WEAKNESS, SOB Follow-up/Referrals: Dorothy Gutierrez DO [Primary Care Provider] - Medications and DC Order Prescriptions: No Action amlodipine 10 mg tablet 10 mg PO DAILY RF: 0 prednisone 10 mg Tablet 10 mg PO QAM RF: 0 potassium chloride 20 mEq Tablet,Er Particles/Crystals 20 meq PO QAM RF: 0 folic acid 1 mg Tablet 1 mg PO QAM RF: 0 losartan 100 mg Tablet 100 mg PO QAM RF: 0 fluticasone propionate [Flonase Allergy Relief] 50 mcg/actuation Winn,Suspension 1 spray INTRANASAL BID RF: 0 ondansetron HCl 8 mg tablet 8 mg PO Q8H PRN (Reason: Nausea And Vomiting) RF: 0 oxycodone 5 mg tablet 5 mg PO Q8H PRN (Reason: Pain) RF: 0 albuterol sulfate 90 mcg/actuation Hfa Aerosol Inhaler 1 inh INHALATION QID PRN (Reason: SOB) RF: 0 pantoprazole 40 mg tablet,delayed release (DR/EC) 40 mg PO QAM RF: 0 Anoro Ellipta 62.5-25 mcg/actuation blister with device 1 ea inhalation QAM RF: 0 prochlorperazine maleate 10 mg tablet 10 mg PO BID PRN (Reason: Nausea) RF: 0 benzonatate 100 mg capsule 100 mg PO QAM RF: 0 levothyroxine 125 mcg tablet 175 mcg PO QAM RF: 0 Daliresp 500 mcg Tablet 500 mcg PO QPM RF: 0 Spiriva Respimat 2.5 mcg/actuation mist 2 puff INHALATION QID RF: 0 Admission Data Admit Date/Time: 07/23/21 23:03 Attending Provider: Drew Banegas Admit Provider: Randolph Billingsley Primary Care Provider: Dorothy Gutierrez Other Providers: Bekah Barajas ; Konstantin Daniel ; Vincenzo Espinoza Coding
== END 2021-07-27 15:59 | disposition expired | DRG 682 ==
LOC: SUATTDRO 23:03 → 2S 23:03 → 3E 07-25 15:27